=== PATIENT | female | born 1940 | race Caucasian/White ===

== ENCOUNTER 2020-02-08 06:33 | Emergency (ER) | payer MEDICARE, SELFPAY ==
[2020-02-08 06:35] VITALS: BP 135/100; PULSE 97; RESP 18; O2SAT 98; BMI 29.2
--- NOTE | 2020-02-08 06:38 | CTR_ITS ---
PROCEDURE INFORMATION: Exam: CT Abdomen And Pelvis Without Contrast Exam date and time: 02/08/2020 7:27 AM Age: 79 years old Clinical indication: Fever and other: Chills; Prior surgery; Surgery date: 6+ months; Surgery type: Gb appy; Additional info: Flank/abdominal pain TECHNIQUE: Imaging protocol: Computed tomography of the abdomen and pelvis without contrast. Radiation optimization: All CT scans at this facility use at least one of these dose optimization techniques: automated exposure control; mA and/or kV adjustment per patient size (includes targeted exams where dose is matched to clinical indication); or iterative reconstruction. COMPARISON: CT Abdomen/Pelvis o [id number] 06/30/2013 2:45 PM RADIATION DOSE METRICS: Total DLP: 1472.09 mGy-cm FINDINGS: Detailed evaluation of the abdominal and pelvic viscera is somewhat limited in the absence of intravenous contrast. Lungs: Interstitial prominence and chronic granulomatous disease. Coronary artery calcification. Liver: Hepatic granuloma. Gallbladder and bile ducts: Status post cholecystectomy with stable caliber of the biliary ducts. Pancreas: No pancreatic mass or ductal dilatation. Spleen: Splenic granulomata. Adrenals: Unremarkable adrenals. Kidneys and ureters: Parapelvic renal cysts and mild left hydronephrosis, without associated urolithiasis. Mild infiltration of perinephric fat. Stomach and bowel: Prominent stool and diverticula, without pericolonic inflammation. Mild small bowel dilatation without a focal transition zone. Appendix: Appendix not visualized. Intraperitoneal space: No significant free fluid. Vasculature: Vascular ectasia and prominent vascular calcification. Lymph nodes: Subcentimeter lymph nodes. Bladder: Lobulated bladder morphology with intraluminal air and mild wall thickening. Reproductive: Calcified fibroids in the enlarged postmenopausal uterus. Bones/joints: Osteopenia. Lumbar dextroscoliosis, degenerative change, and disc bulging along with laminectomy. L5 spondylolysis and grade 1 anterior listhesis of L5 on S1. Soft tissues: granulomata. CT/CT kidney stone [id number] IMPRESSION: 1. Prominent stool and diverticula, without pericolonic inflammation. 2. Lobulated bladder morphology with intraluminal air and mild wall thickening. 3. Parapelvic renal cysts and mild left hydronephrosis, without associated urolithiasis. 4. Additional findings as described above. Radiation Dose CTDIVOL = (mGy): DLP = 1472.09 (mGy-cm)
--- NOTE | 2020-02-08 06:38 | XR_ITS ---
WS: [id number] XR chest 1V portable [id number] REASON FOR EXAM: FEVER FINDINGS: Off the right hilum there appears to be a low-grade interstitial infiltrate. The heart is normal. There is arteriosclerotic changes seen. There is no pulmonary edema or pneumothorax or effusion. The hilum and apices normal. XR/XR chest 1V portable [id number] IMPRESSION: Low-grade infiltrate off the right hilar area and right lower lung suggesting i nterstitial pneumonia.
--- NOTE | 2020-02-08 06:47 | ED_ITS ---
HPI - Fever General: Chief Complaint: Fever Stated Complaint: fever since yesterday Time Seen by Provider: 02/08/20 06:37 History of Present Illness: HPI Narrative: Dang is a nice 79-year-old female who comes in stating that she has a fever and feels nauseated. Her symptoms began yesterday. She also has urinary frequency and urgency and dysuria. The patient was treated 3 weeks ago with a course of ciprofloxacin for a UTI. She states that she thinks she has a UTI again. She has chronic low back pain but does not feel as though the symptoms are any worse than normal. She is only vomited twice the second episode being just before arrival and then one other episode yesterday. She denies any abdominal pain, diarrhea, flank pain or other complaints. She specifically has no cough or shortness of breath. EMS reported a temp of 100.[address] here. Associated symptoms: Reports dysuria, nausea and vomiting; Deny abdominal pain, back/flank pain, chest pain, confusion, diarrhea, extremity pain or headache(s) Review of Systems General: Reports: other (negative unless marked) Const: Reports: fever; Denies: body aches, fatigue, malaise or diaphoresis Eyes: Denies: change in vision or blurry vision ENMT: Denies: throat pain, painful swallowing, hoarseness, ear pain, ear discharge, Change in hearing or nasal discharge Card: Denies: chest pain, palpitations, irregular heart rhythm, syncope, pre- syncope, shortness of breath on exertion or shortness of breath when lying down Resp: Denies: shortness of breath, productive cough, non-productive cough, wheezing, coughing up blood or chest congestion GI: Reports: nausea and vomiting; Denies: abdominal pain, vomiting blood, coffee grounds in vomit, diarrhea, constipation, cramping, blood in stool or black tarry stool : Reports: painful urination, urinary frequency and urinary urgency; Denies: flank pain, decreased urine ouput, urinary incontinence or blood in urine Musc: Denies: neck pain, back pain, extremity pain, extremity swelling, joint pain, joint swelling, joint warmth or joint stiffness Skin/Breast: Denies: rash, skin tenderness or yellow skin Neuro: Denies: headache, numbness in extremities, weakness in extremities, changes in sensation, lack of coordination, difficulty walking, dizziness, vertigo or confusion Endo: Denies: excessive thirst, tired all the time, cold intolerance, excessive sweating, flushing or hot flashes Olgan/Lymph: Denies: easy bruising, easy bleeding, petechiae or enlarged lymph nodes All/Imm: Denies: hives, throat swelling, tongue swelling, facial swelling or acute wheezing PFSH ED PFSH: Medical History ASHD (arteriosclerotic heart disease) Carotid bruit Essential hypertension Myocardial infarction Plavix resistance Statin intolerance Dizziness and anxiety Surgical History S/P angioplasty with stent Family History Other CAD (coronary artery disease) Diabetes Social History Smoking and tobacco status: never smoked Alcohol intake: never Physical Exam Const: COMMON NORMALS: no apparent distress, oriented x3, no limitations, healthy appearing and well nourished EXAM LIMITATIONS: no altered mental status GENERAL APPEARANCE: cooperative, well kempt and well developed ORIENTATION/CONSCIOUSNESS: Yes awake HENMT: COMMON NORMALS: normocephalic, head/scalp atraumatic, hearing grossly normal bilaterally, external ears normal, EAC's normal, external nose normal and moist oral mucous membranes HEAD & SCALP: normal to inspection, normocephalic and atraumatic FACE & SINUS: normal facial exam and face symmetric NOSE: external nose normal and nares normal EXTERNAL EAR: Yes external ears normal EXTERNAL AUDITORY CANAL: EAC's normal MOUTH: oral and palatal mucosa normal and tongue normal Eye: COMMON NORMALS: PERRL, EOMs intact bilaterally, conjunctivae normal and no scleral icterus GENERAL EYE: normal appearance of both eyes and normal light reflex CONJUNCTIVA: Yes conjunctivae normal SCLERA: sclerae normal CORNEA: Yes corneas normal PUPIL: Yes PERRL DIRECT OPHTHALMOSCOPY: Yes normal light reflex Neck/C-Spine: COMMON NORMALS: full ROM, no lymphadenopathy, supple, no meningeal signs and no JVD GENERAL: Yes normal visual inspection and Yes trachea midline CERVICAL SPINE: Yes cervical ROM normal Chest: COMMONS NORMALS: inspection of chest normal and palpation of chest normal Resp: COMMON NORMALS: normal respiratory effort, no retractions, no use of accessory muscles and clear to auscultation bilaterally EFFORT & INSPECTION: Yes able to speak in complete sentences AUSCULTATION: clear to auscultation bilaterally Cardio: COMMON NORMALS: no JVD, regular rate, regular rhythm, S1 normal heart sound, S2 normal heart sound, no gallops, no clicks, no murmurs and no rub JUGULAR VENOUS DISTENTION: no JVD RATE: regular rate RHYTHM: regular rhythm HEART SOUNDS: S1 normal and S2 normal GI: COMMON NORMALS: soft to palpation, non-tender, no hepatosplenomegaly and no masses INSPECTION: Yes normal to inspection PALPATION: Yes soft and Yes no hepatosplenomegaly : COMMON NORMALS: Yes no CVA tenderness BLADDER/KIDNEY EXAM: Yes no CVA tenderness Back/Pelvis: COMMON NORMALS: no CVA tenderness, thoracic and lumbar spine normal to inspection, no thoracic nor lumbar tenderness and thoraco-lumbar ROM normal Extremity: COMMON NORMALS: normal to inspection, full ROM, normal capillary refill, no joint enlargement, no clubbing, cyanosis or edema and no calf tenderness Neuro: COMMON NORMALS: oriented x3, CN's II-XII intact bilaterally, moves all extremities, no focal motor deficits and no sensory deficits noted MENINGEAL SIGNS: Yes no meningeal signs Psych: COMMON NORMALS: mental status grossly normal, thought process normal, cooperative, affect normal, speech normal and activity/motor behavior normal APPEARANCE: Yes well kempt SPEECH: Yes normal speech THOUGHT PROCESS: normal thought process Skin: COMMON NORMALS: no rashes or lesions noted, skin turgor normal, no jaundice, no petechiae and no mottling GENERAL SKIN EXAM: no rashes or lesions noted and turgor normal Course Vital Signs: Vital signs: Vital Signs Pulse Rate 81 02/08/20 10:01 Respiratory Rate 18 02/08/20 10:01 Blood Pressure 117/47 02/08/20 10:01 Pulse Oximetry 95 02/08/20 10:01 MDM - Fever MDM Narrative: Medical decision making narrative: Ms. Josue is a 79-year-old female who comes in with urinary frequency and urgency and has been diagnosed with a UTI here. We will culture the urine and start her on empiric Rocephin. She has tolerated Keflex in the past and the only allergy she has to penicillins is a rash. Going back as far as 2012 the findings of hydronephrosis which is likely due to parapelvic renal cysts has been stable. There is no sign of ure teral lithiasis. The patient does not appear as of pyelonephritis clinically or on CT. The patient will have been hydrated here with over 2 L of normal saline and will be have given her first dose of antibiotics as an IV dose. Patient does not appear clinically septic and does not meet sepsis criteria. I have reviewed with her at length the signs and symptoms for which to return and she was given the option to be considered staying here but she declines and would like to be discharged. She does understand though she could easily get sick and if so she will need to return here immediately. Lab Data: Attestation: I reviewed the patient's lab results. Labs: Lab Results 02/08/20 02/08/20 02/08/20 Range/Units 06:43 06:43 06:43 WBC 4.2 (4.0-10.0) 10^3/ uL RBC 4.24 (4.1-5.3) 10^6/u L Hgb 12.7 (11.5-15.3) g/dL Hct 39.8 (37.0-47.0) % MCV 93.9 (81-99) fL MCH 30.0 (28.0-34.0) pg MCHC 31.9 (30.0-36.0) g/dL RDW 14.4 (12.1-15.1) % Plt Count 188 (130-400) 10^3/c mm MPV 10.3 (7.4-10.4) fL Neut % (Auto) 89.2 % Lymph % (Auto) 8.4 % [place] % (Auto) 1.0 % Eos % (Auto) 0.7 % Baso % (Auto) 0.5 % Neut # (Auto) 3.7 (1.8-7.7) 10^3/u L Lymph # (Auto) 0.4 L (0.8-4.8) 10^3/u L [place] # (Auto) 0.0 L (0.2-0.9) 10^3/u L Eos # (Auto) 0.0 (0.0-0.8) 10^3/u L Baso # (Auto) 0.0 (0.0-0.1) 10^3/u L Nucleated RBC % (a uto) 0 % Nucleated RBCs # 0.0 /100WBC Sodium 137 (136-145) mmol/L Potassium 3.8 (3.5-5.1) mmol/L Chloride 102 (98-107) mmol/L Carbon Dioxide 23 (22-29) mmol/L Anion Gap 15.8 (5-19) BUN 17 (8-23) mg/dL Creatinine 1.0 H (0.5-0.9) mg/dL Glucose 150 H (65-115) mg/dL Calculated Osmolal ity 283 L (285-295) mOsm/k g Lactic Acid 2.1 (0.5-2.2) mmol/L Lactic Acid (Sepsi s) (0.5-2.2) mmol/L Calcium 10.6 H (8.5-10.5) mg/dL Magnesium 1.7 (1.7-2.3) mg/dL Total Bilirubin 1.4 H (0.15-1.2) mg/dL AST 22 (0-32) U/L ALT 13 (0-33) U/L Alkaline Phosphata se 91 (35-105) IU/L Total Protein 7.2 (6.6-8.7) g/dL Albumin 3.7 (3.5-5.2) g/dL Globulin 3.5 (1.3-4.6) g/dL Lipase 10 L (13-60) U/L Urine Color (Yellow) Urine Appearance (CLEAR) Urine pH (5-7) Ur Specific Gravit y (1.005-1.030) Urine Protein (Negative) Urine Glucose (UA) (Normal) Urine Ketones (Negative) Urine Blood (Negative) Urine Nitrate (Negative) Urine Bilirubin (NEGATIVE) Urine Urobilinogen (Negative) mg/dL Ur Leukocyte Melinda ase (Negative) Urine RBC (0-2) /hpf Urine WBC (0-5) /hpf Ur Squamous Epith Cells (0-5) Urine Bacteria (NONE) 02/08/20 02/08/20 Range/Units 07:10 09:42 WBC (4.0-10.0) 10^3/ uL RBC (4.1-5.3) 10^6/u L Hgb (11.5-15.3) g/dL Hct (37.0-47.0) % MCV (81-99) fL MCH (28.0-34.0) pg MCHC (30.0-36.0) g/dL RDW (12.1-15.1) % Plt Count (130-400) 10^3/c mm MPV (7.4-10.4) fL Neut % (Auto) % Lymph % (Auto) % [place] % (Auto) % Eos % (Auto) % Baso % (Auto) % Neut # (Auto) (1.8-7.7) 10^3/u L Lymph # (Auto) (0.8-4.8) 10^3/u L [place] # (Auto) (0.2-0.9) 10^3/u L Eos # (Auto) (0.0-0.8) 10^3/u L Baso # (Auto) (0.0-0.1) 10^3/u L Nucleated RBC % (a uto) % Nucleated RBCs # /100WBC Sodium (136-145) mmol/L Potassium (3.5-5.1) mmol/L Chloride (98-107) mmol/L Carbon Dioxide (22-29) mmol/L Anion Gap (5-19) BUN (8-23) mg/dL Creatinine (0.5-0.9) mg/dL Glucose (65-115) mg/dL Calculated Osmolal ity (285-295) mOsm/k g Lactic Acid (0.5-2.2) mmol/L Lactic Acid (Sepsi s) 1.3 (0.5-2.2) mmol/L Calcium (8.5-10.5) mg/dL Magnesium (1.7-2.3) mg/dL Total Bilirubin (0.15-1.2) mg/dL AST (0-32) U/L ALT (0-33) U/L Alkaline Phosphata se (35-105) IU/L Total Protein (6.6-8.7) g/dL Albumin (3.5-5.2) g/dL Globulin (1.3-4.6) g/dL Lipase (13-60) U/L Urine Color Yellow (Yellow) Urine Appearance Sl hazy (CLEAR) Urine pH 6 (5-7) Ur Specific Gravit y 1.010 (1.005-1.030) Urine Protein Trace (Negative) Urine Glucose (UA) Norm (Normal) Urine Ketones Negative (Negative) Urine Blood 2+ H (Negative) Urine Nitrate Negative (Negative) Urine Bilirubin Neg (NEGATIVE) Urine Urobilinogen Norm (Negative) mg/dL Ur Leukocyte Melinda ase 2+ H (Negative) Urine RBC 10-15 H (0-2) /hpf Urine WBC 40-55 H (0-5) /hpf Ur Squamous Epith Cells 0-4 H (0-5) Urine Bacteria 3+ H (NONE) Imaging Data^: CT Abd/Pel: Attestation: I personally reviewed and interpreted this imaging study as follows: Radiologist's impression: [place] [address] CT Scan Report Signed Patient: Glenda Josue Unit #: [id number] : 1940 74 Age/Sex: 79 / F ADM Date: 02/08/20 Loc: ER Room/Bed: Attending Dr: Ordering Provider/Ordering MD: Genet Marc DO Date of Service: 02/08/20 Procedure(s): CT kidney stone [id number] Accession Number(s): [id number] Report Number: [id number] PROCEDURE INFORMATION: Exam: CT Abdomen And Pelvis Without Contrast Exam date and time: 02/08/2020 7:27 AM Age: 79 years old Clinical indication: Fever and other: Chills; Prior surgery; Surgery date: 6+ months; Surgery type: Gb appy; Additional info: Flank/abdominal pain TECHNIQUE: Imaging protocol: Computed tomography of the abdomen and pelvis without contrast. Radiation optimization: All CT scans at this facility use at least one of these dose optimization techniques: automated exposure control; mA and/or kV adjustment per patient size (includes targeted exams where dose is matched to clinical indication); or iterative reconstruction. COMPARISON: CT Abdomen/Pelvis [facility] [id number] 06/30/2013 2:45 PM RADIATION DOSE METRICS: Total DLP: 1472.09 mGy-cm FINDINGS: Detailed evaluation of the abdominal and pelvic viscera is somewhat limited in the absence of intravenous contrast. Lungs: Interstitial prominence and chronic granulomatous disease. Coronary artery calcification. Liver: Hepatic granuloma. Gallbladder and bile ducts: Status post cholecystectomy with stable caliber of the biliary ducts. Pancreas: No pancreatic mass or ductal dilatation. Spleen: Splenic granulomata. Adrenals: Unremarkable adrenals. Kidneys and ureters: Parapelvic renal cysts and mild left hydronephrosis, without associated urolithiasis. Mild infiltration of perinephric fat. Stomach and bowel: Prominent stool and diverticula, without pericolonic inflammation. Mild small bowel dilatation without a focal transition zone. Appendix: Appendix not visualized. Intraperitoneal space: No significant free fluid. Vasculature: Vascular ectasia and prominent vascular calcification. Lymph nodes: Subcentimeter lymph nodes. Bladder: Lobulated bladder morphology with intraluminal air and mild wall thickening. Reproductive: Calcified fibroids in the enlarged postmenopausal uterus. Bones/joints: Osteopenia. Lumbar dextroscoliosis, degenerative change, and disc bulging along with laminectomy. L5 spondylolysis and grade 1 anterior listhesis of L5 on S1. Soft tissues: granulomata. CT/CT kidney stone [id number] IMPRESSION: 1. Prominent stool and diverticula, without pericolonic inflammation. 2. Lobulated bladder morphology with intraluminal air and mild wall thickening. 3. Parapelvic renal cysts and mild left hydronephrosis, without associated urolithiasis. 4. Additional findings as described above. Radiation Dose CTDIVOL = (mGy): DLP = 1472.09 (mGy-cm) Dictated By: Josse Kolb MD Signed By: Josse oKlb MD Signed Date/Time: 02/08/20 0800 DD/ 0759 CXR: My impression: No acute cardiopulmonary findings. Unchanged from previous. Discharge Plan Discharge Patient Disposition: Home, Self-Care Clinical Impression: Acute UTI Condition: Stable Prescriptions: New Zofran 4 mg tablet 4 mg PO Q6H PRN (Reason: nausea and vomiting) Qty: 20 RF: 0 cefdinir 300 mg capsule 300 mg PO Q12H 10 Days Qty: 20 RF: 0 No Action aspirin [Adult Low Dose Aspirin] 81 mg tablet,delayed release (DR/EC) 81 mg PO DAILY RF: 0 enalapril maleate 20 mg tablet 20 mg PO BID RF: 0 cyclobenzaprine 10 mg tablet 10 mg PO TID PRNRF: 0 polyethylene glycol 3350 [Miralax] 17 gram/dose powder 17 gm PO QDAY PRNRF: 0 acetaminophen [Tylenol Extra Strength] 500 mg tablet 500 mg PO Q4H PRNRF: 0 Discharge Orders: Discharge Order (Routine); Ordered 02/08/20 Ordered By: Genet Marc Referrals: Tamar Gudino DO [Primary Care Provider] - 1-3 days Discharge Diet: Advance as tolerated Discharge Activity: Increase activity as tolerated Patient Instructions: Urinary Tract Infection in Women (ED), Dysuria (ED) Activity Restrictions/Additional Instructions: Please return to the ER immediately for any of the signs or symptoms listed on your discharge instruction sheets, worsening/changing of your symptoms, you are not getting better as quickly as expected, or for ANY other cause or concerns. Please return to the ER for fever, return of vomiting, generalized weakness, or for any other cause for concern. Be certain to follow-up with your doctor as soon as possible for recheck. 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
[2020-02-08 06:51] LABS: Basophils % 0.5 %; Eosinophils % 0.7 %; Hematocrit 39.8 % (37.0-47.0); Hemoglobin 12.7 g/dL (11.5-15.3); Lymphocytes # 0.4 10^3/uL (0.8-4.8); Lymphocytes % 8.4 %; Mean Corpuscular HGB Conc 31.9 g/dL (30.0-36.0); Mean Corpuscular Volume 93.9 fL (81-99); Mean Platelet Volume 10.3 fL (7.4-10.4); Neutrophils # 3.7 10^3/uL (1.8-7.7); Neutrophils % 89.2 %; Nucleated Red Blood Cells % 0 %; Platelet Count 188 10^3/cmm (130-400); Red Blood Count 4.24 10^6/uL (4.1-5.3); Red Cell Distribution Width 14.4 % (12.1-15.1); White Blood Count 4.2 10^3/uL (4.0-10.0)
[2020-02-08] MEDS: sodium chloride 0.9% 1,000 ML 999 ML IV (06:51)
[2020-02-08 07:03] LABS: Alanine Aminotransferase 13 U/L (0-33); Albumin Level 3.7 g/dL (3.5-5.2); Alkaline Phosphatase 91 IU/L (35-105); Anion Gap 15.8 (5-19); Blood Urea Nitrogen 17 mg/dL (8-23); Calcium 10.6 mg/dL (8.5-10.5); Carbon Dioxide 23 mmol/L (22-29); Chloride 102 mmol/L (98-107); Globulin 3.5 g/dL (1.3-4.6); Glucose 150 mg/dL (65-115); Lactic Sepsis W/Reflex 2.1 mmol/L (0.5-2.2); Lipase 10 U/L (13-60); Magnesium 1.7 mg/dL (1.7-2.3); Osmolality Calculated 283 mOsm/kg (285-295); Potassium 3.8 mmol/L (3.5-5.1); Sodium 137 mmol/L (136-145); Total Bilirubin 1.4 mg/dL (0.15-1.2); Total Protein 7.2 g/dL (6.6-8.7)
[2020-02-08 07:18] LABS: Aspartate Amino Transferase 22 U/L (0-32)
[2020-02-08] MEDS: ondansetron 2 mg/ML SDV 2 mL 4 MG IVP (07:41)
[2020-02-08 08:34] LABS: Urine Color Yellow (Yellow)
[2020-02-08 08:35] LABS: Bilirubin Urine Neg (NEGATIVE); Blood Urine 2+ (Negative); Glucose Urine UA Norm (Normal); Ketones Urine Negative (Negative); Leukocyte Esterase Urine 2+ (Negative); Nitrate Urine Negative (Negative); Protein Urine Trace (Negative); Urine Appearance SL Hazy (CLEAR); Urobilinogen Urine Norm (Negative); pH Urine 6 (5-7)
[2020-02-08 08:36] LABS: Reflex Lactate Order REFLEX LACTIC ORDERD
[2020-02-08 08:55] LABS: Add Urine Culture? Yes; Bacteria Urine 3+; Squamous Epithelial Cell Urine 0-4 (0-5); WBC Urine 40-55 /hpf (0-5)
[2020-02-08] MEDS: sodium chloride 0.9% 1,000 ML 100 ML IV (08:59)
[2020-02-08] MEDS: cefTRIAXone 1,000 MG in sodium chloride 0.9% (plus) 50 ML 100 MG IV (09:21)
[2020-02-08 10:01] VITALS: BP 117/47; PULSE 81; RESP 18; O2SAT 95
[2020-02-08 10:03] LABS: Lactic Acid level (Lactate) 1.3 mmol/L (0.5-2.2)
== END 2020-02-08 10:39 | disposition home or self-care (01) ==
PROVIDERS: Emergency Provider Emergency Medicine; PCP Family Medicine
DX: N39.0 Urinary tract infection, site not specified (principal); Z79.82 Long term (current) use of aspirin; I10 Essential (primary) hypertension; I25.2 Old myocardial infarction; Z98.61 Coronary angioplasty status
CPT/HCPCS: 12345; 36415; 71045; 74176; 80053; 81001; 83605; 83690; 83735; 85025; 87077; 87086; 87186; 96361; 96365; 96375; 99282; 99284; J0696; J2405; J7030

== ENCOUNTER 2020-11-08 10:42 | Inpatient (IN) | payer MEDICARE, SELFPAY ==
[2020-11-08] VITALS (69 sets, daily range): BP systolic 134–230; BP diastolic 39–97; PULSE 47–63; RESP 12–20; TEMP 36.6–36.9; O2SAT 92–98; BMI 27.4
--- NOTE | 2020-11-08 10:51 | XRR_ITS ---
PROCEDURE INFORMATION: Exam: XR Left Hip with Pelvis when Performed Exam date and time: 11/08/2020 10:55 AM Age: 80 years old Clinical indication: Hip pain; Patient HX: Left hip and leg pain, numbness, cramp in groin TECHNIQUE: Imaging protocol: XR Left hip with pelvis when performed. Views: 2 or 3 views. COMPARISON: CT kidney stone [id number] 02/08/2020 7:26 AM FINDINGS: Bones/joints: Mild degenerative changes are present with mild superior joint space narrowing. No fracture or other acute abnormalities are seen. Soft tissues: Unremarkable. XR/XR hip LT 2-3V wo/w pel* [id number] IMPRESSION: Mild chronic degenerative disease. No acute abnormality.
--- NOTE | 2020-11-08 10:51 | ECG_ITS ---
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
--- NOTE | 2020-11-08 10:57 | USCV_ITS ---
Glenda Josue Age: 80 Gender: F : 1940 Exam Date: 11/08/2020 11:32 Ordering Phys: Corey Hilario DO Technologist: [place] Exam Location: [facility] [place] Indication: COLD EXTREMITY AND PULSELESSNESS Risk Factors: Previous Vascular Surgery: RIGHT LEFT Waveform Velocity (cm/s) Velocity (cm/s) Waveform Iliac Prox 15.4 N/A Iliac Mid 14.8 Monophasic Iliac Distal 12.1 Biphasic [employer] 7.5 Monophasic FINDINGS Low velocity monophasic Doppler waveform in the proximal, mid and distal iliac artery on the left side. No flow was detected in the common femoral artery, superficial, popliteal and infrapopliteal vessels. 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 Dr Keturah Augustin MD [facility] (Electronically Signed) Final Date: 08 November 2020 19:49 S
--- NOTE | 2020-11-08 10:59 | ED_ITS ---
HPI - Extremity Problem General: Chief complaint: Extremity Problem,Nontraumatic Stated complaint: L LEG PAIN Time Seen by Provider: 11/08/20 10:44 History of Present Illness: HPI Narrative: 80-year-old female comes in complaining of left hip pain radiating down into her foot. States it is primarily however in the hip. She cannot recall any trauma she had no recent fall she was up and move around doing her usual activities when it began this morning. She states it started this morning about 15 minutes after she put some wood in an outdoor furnace. MD Complaint: extremity pain and cold extremity Onset (ago): minute(s) Pain Consistency: constant Location: left and lower extremity Quality: aching Radiation: distal Relieving factors: nothing Exacerbating factors: nothing Associated symptoms: Deny arthralgias, chest pain, fever(s), myalgias, rash or short of breath Review of Systems Const: Denies: fever(s) Card: Denies: chest pain Resp: Denies: dyspnea, productive cough or non-productive cough GI: Denies: abdominal pain, nausea, vomiting, hematemesis, coffee ground emesis, diarrhea, constipation, bloating, hematochezia or melena : Denies: flank pain, difficulty voiding, dysuria, urinary frequency or urinary urgency Skin/Breast: Denies: rash PFSH ED PFSH: Medical History ASHD (arteriosclerotic heart disease) Carotid bruit Essential hypertension Myocardial infarction Plavix resistance Statin intolerance Dizziness and anxiety Surgical History S/P angioplasty with stent Family History Other CAD (coronary artery disease) Diabetes Social History Smoking and tobacco status: never smoked Alcohol intake: never Physical Exam Const: COMMON NORMALS: no acute distress GENERAL APPEARANCE: cooperative and comfortable HENMT: COMMON NORMALS: normocephalic, atraumatic, hearing grossly normal bilaterally, external ears normal, EAC's normal, TM's normal bilaterally, Normal nasal mucous membranes and turbinates present, moist oral mucous membranes and oropharynx normal HEAD & SCALP: normocephalic and atraumatic NOSE: Normal nasal mucous membranes and turbinates present EXTERNAL EAR: Yes external ears normal EXTERNAL AUDITORY CANAL: EAC's normal TYMPANIC MEMBRANE: TM's normal bilaterally Neck/C-Spine: COMMON NORMALS: no JVD Resp: COMMON NORMALS: normal respiratory effort, No retractions, No use of accessory muscles and clear to auscultation bilaterally AUSCULTATION: clear to auscultation bilaterally Cardio: COMMON NORMALS: no JVD, regular rate, regular rhythm and No murmurs present (Cardio) RATE: regular rate RHYTHM: regular rhythm GI: COMMON NORMALS: Soft to palpation and No hepatosplenomegaly present AUSCULTATION: Yes normoactive bowel sounds PALPATION: Yes Soft to palpation, No Tenderness to palpation present (GI), No Guarding due to palpation present (GI) and Yes No hepatosplenomegaly present Extremity: NARRATIVE EXTREMITY EXAM: left leg is pulseless below the level of the femoral artery at the inguinal region. I can still palpate at the left femoral artery. No popliteal or dorsalis pedis posterior tibial Ellie pulse noted. Skin: COMMON NORMALS: no rashes or lesions noted GENERAL SKIN EXAM: no rashes or lesions noted Course Vital Signs: Vital signs: Vital Signs Temperature 98.5 F 11/08/20 10:43 Pulse Rate 47 L 11/08/20 13:03 Respiratory Rate 18 11/08/20 13:03 Blood Pressure 218/97 11/08/20 13:03 Pulse Oximetry 98 11/08/20 13:03 MDM - Extremity (Nontraumatic) MDM Narrative: Medical decision making narrative: Ultrasound study confirms physical exam finding of ischemic limb with no identifiable pulses below the level of the common femoral artery. Discussed with Dr. Nicholson initially he asked that we do a CT with runoff. We had already started her on heparin. There was a change in plan and Dr. Nicholson plans to take patient directly to the Traveling Secretary have discussed with the patient and family as well. Lab Data: Labs: Lab Results 11/08/20 11/08/20 11/08/20 Range/Units 12:05 12:05 12:45 WBC 9.9 (4.0-10.0) 10^3/ uL RBC 4.12 (4.1-5.3) 10^6/u L Hgb 12.6 (11.5-15.3) g/dL Hct 39.1 (37.0-47.0) % MCV 94.9 (81-99) fL MCH 30.6 (28.0-34.0) pg MCHC 32.2 (30.0-36.0) g/dL RDW 13.2 (12.1-15.1) % Plt Count 256 (130-400) 10^3/c mm MPV 9.9 (7.4-10.4) fL Neut % (Auto) 83.0 % Lymph % (Auto) 12.6 % [place] % (Auto) 3.3 % Eos % (Auto) 0.2 % Baso % (Auto) 0.7 % Neut # (Auto) 8.18 H (1.8-7.7) 10^3/u L Lymph # (Auto) 1.2 (0.8-4.8) 10^3/u L [place] # (Auto) 0.3 (0.2-0.9) 10^3/u L Eos # (Auto) 0.0 (0.0-0.8) 10^3/u L Baso # (Auto) 0.1 (0.0-0.1) 10^3/u L Nucleated RBC % (a uto) 0 % Nucleated RBCs # 0.0 /100WBC Sodium 139 (136-145) mmol/L Potassium 4.1 (3.5-5.1) mmol/L Chloride 104 (98-107) mmol/L Carbon Dioxide 25 (22-29) mmol/L Anion Gap 14.1 (5-19) BUN 11 (8-23) mg/dL Creatinine 0.7 (0.5-0.9) mg/dL GFR Calculation Not Reportable Glucose 113 (65-115) mg/dL Calculated Osmolal ity 288 (285-295) mOsm/k g Calcium 9.6 (8.5-10.5) mg/dL Total Bilirubin 0.5 (0.15-1.2) mg/dL AST 16 (0-32) U/L ALT 9 (0-33) U/L Alkaline Phosphata se 89 (35-105) IU/L Total Protein 6.9 (6.6-8.7) g/dL Albumin 3.7 (3.5-5.2) g/dL Globulin 3.2 (1.3-4.6) g/dL Urine Color Straw (Yellow) Urine Appearance Clear (CLEAR) Urine pH 7 (5-7) Ur Specific Gravit y 1.010 (1.005-1.030) Urine Protein Trace (Negative) Urine Glucose (UA) Norm (Normal) Urine Ketones Negative (Negative) Urine Blood Neg (Negative) Urine Nitrate Positive H (Negative) Urine Bilirubin Neg (Negative) Urine Urobilinogen Norm (Negative) mg/dL Ur Leukocyte Melinda ase Negative (Negative) Urine RBC None (0-2) /hpf Urine WBC 5-10 H (0-5) /hpf Ur Squamous Epith Cells 0-4 H (0-5) /hpf Amorphous Sediment Not Reportable Urine Bacteria 4+ H (NONE) /hpf Discharge Plan Discharge Admit Provider: Christopher Nicholson Coding Level of Care Code ED Ticker Installer for g Fwd Exam Comprehensive
[2020-11-08] MEDS: heparin 5,000 unit/mL INJ 1 mL 4000 UNIT IVP (12:04)
[2020-11-08] MEDS: heparin drip 25,000 UNIT/500 ML PREMIX 19.1 UNIT IV (12:28)
[2020-11-08 12:29] LABS: Basophils # 0.1 10^3/uL (0.0-0.1); Basophils % 0.7 %; Eosinophils % 0.2 %; Hematocrit 39.1 % (37.0-47.0); Hemoglobin 12.6 g/dL (11.5-15.3); Lymphocytes # 1.2 10^3/uL (0.8-4.8); Lymphocytes % 12.6 %; Mean Corpuscular HGB Conc 32.2 g/dL (30.0-36.0); Mean Corpuscular Hemoglobin 30.6 pg (28.0-34.0); Mean Corpuscular Volume 94.9 fL (81-99); Mean Platelet Volume 9.9 fL (7.4-10.4); Monocytes # 0.3 10^3/uL (0.2-0.9); Monocytes % 3.3 %; Neutrophils # 8.18 10^3/uL (1.8-7.7); Nucleated Red Blood Cells % 0 %; Platelet Count 256 10^3/cmm (130-400); Red Blood Count 4.12 10^6/uL (4.1-5.3); Red Cell Distribution Width 13.2 % (12.1-15.1); White Blood Count 9.9 10^3/uL (4.0-10.0)
--- NOTE | 2020-11-08 12:50 | XACV_ITS ---
Wt: 68 kg BSA: 1.75 m2 Any Known Allergies: Hydrocodone Gender: Female : 1940 Exam Type: Invasive Peripheral Vascular Procedure(s): Procedure Description: Peripheral Cath Diagnostic Procedure Procedure Description: Abdominal aortic angiography Procedure Description: Peripheral vascular Intervention Procedure Description: PV Balloon Exam Priority: Routine Abdominal Diagnostic Findings No significant stenosis. Lower Extremity Diagnostic Findings Right lower extremity: No significant stenosis in the right common iliac. No significant stenosis of the right external iliac artery. No significant stenosis in right internal iliac artery. No significant stenosis in the right common femoral artery. Runoff to right lower extremity not performed as patient had acute limb ischemia left lower extremity. However significant stenosis of the proximal right SFA was noted on the femoral artery angiogram at the end of procedure.. Left lower extremity: No significant stenosis in the left common iliac artery. No significant stenosis in the left external iliac artery. No significant stenosis in the left internal iliac artery. Left common femoral artery: There is a total thombotic occlusion of the distal left common femoral artery/ostial left SFA and profunda artery. Weak collarerals noted. Abdominal Interventional Findings PROCEDURE INDICATION: 80 year old female with past medical history of uncontrolled hypertension, coronary artery disease s/p [place] in the past, history of noncompliance presented to the emergency room with 3 to 4 hours of left hip pain radiating down to her foot. She started noticing numbness in the foot. In the emergency room she will was found to have no pulses in the left lower extremity. Duplex arterial ultrasound showed no flow below the iliac arteries. Patient was started on heparin drip. Interventional cardiology was consulted and she was emergently taken to [facility] for angiogram. Lower Extremity Interventional Findings PROCEDURE: We obtained access in the right common femoral artery. After diagnostic abdominal angiogram was performed , we switched the sheath to a 6 Fr 45 cm long cook sheath. We then used glidewire to cross the thombotic occlusion and was placed in the TR segment with the help of seeker support catheter. We then performed balloon angioplasty using a [id number] Balloon. This restored the blood flow to the lower extremity. This revealed severe stenosis in the mid SFA. This was treated with balloon angioplasty with a [id number] Balloon. Below the knee patient had a single vessel run off to the ankle with patent AT being filled by collateral supply. TP segment is occluded. As patient had immediate return of good palpable pulse in the foot with druze of foot movement and sensation we decided to finish the procedure. Left profunda artery had thrombus downstream that was left for oral anticoagulation treatment. Conclusions Acute limb ischemia with total thrombotic occlusion of distal left common femoral artery/ostial left SFA/ Ostial profunda. Successful revascularization with balloon angioplasty x 2. Severe peripheral artery disease. Recommendations Admit to CSU. Continue aspirin. We will initiate Eliquis 2.5mg BID for 1 month. As outpatient, will perform CTA with runoff to assess for peripheral artery disease on the right side. Hemodynamic Data Phase:Rest AO : 165.0 / 68.0 ( 96.0 ) @ 7:43:00 AM Access Site Site: Right Femoral artery Sheath Size: 6 Fr Hemost... Method: Suture Hemost... Success: Unsuccessful Site: Right Femoral artery Sheath Size: 6 Fr Hemost... Method: Suture Hemost... Success: Successful Procedure Details Findings Procedure Consent Obtained. Admit Source: Emergency department. Pre-Procedure Time Out. Identified patient by full name and date of as verbalized by the patient/guarantor. Does the consent match the physician's order: N/A Emergent. Accurate & Complete Informed Consent: N/A Emergent. Inpatient/Outpatient History & Physical on Chart: N/A Emergent. If H&P is completed, is and addenduem needed: N/A Emergent; If yes, is the addendum complete: N/A Emergent. Visualize and Verify Site with Patient/Guarantor: N/A. Relevant Radiology Images available: N/A Emergent. Pre-op teaching completed and patient verbalized understanding. The risks, benefits, and alternatives of sedation and/or procedure were discussed by physician. The patient agrees to continue. Procedure started. Correct patient, site and procedure confirmed by cath team. PERRLA. Strong, equal hand php architect bilaterally. Lungs clear x 5 lobes. IV Site on Arrival: 20 gauge in the left anticubital. Oxygen started at 2liters/min via nasal canula. bilateral groins was prepped with chloroprep then draped in the usual sterile fashion. Physician notified. Baseline sample Acquired. HR: 52 BPM. Physician arrived. Physician scrubbed in. Immediate Pre-Procedure Time Out. Correct Patient: Yes; Correct Procedure: Yes; Correct Site: Yes; Correct Patient Position: Yes; Correct Supplies: Yes; Dried Flammable Prep: yes; Blood Products Available: N/A;. Time out performed with cath team. Lidocaine 1% infiltrated to the right groin. Arterial access obtained with micropuncture set. A 5FrFr UF catheter in over wire. Abdominal aortogram performed in AP @ 10 mL/sec for a total of [address] Shetty scrubbed in to help. glide wire inserted. Catheter out. seeker inserted. glide wire out. hand injection performed. glide wire inserted. seeker out. 6F long Portable Scores flexor 45 sheath. Trailblazer catheter inserted over the wire. Side port of sheath attached to Normal Saline flush at KVO to maintain patency. glidewire out. hand injection performed. glidewire inserted. seeker out over glidewire. Inflation number : 1 A AB [place] 35 CAR SALESPERSON Catheter [id number] was prepped and advanced across the Superficial Femoral, Left , then inflated to 6 DEEPAK for 2:06 seconds. Balloon out over wire. results checked. Inflation number : 2 A AB [place] 35 OTW [id number] was prepped and advanced across the Superficial Femoral, Left , then inflated to 6 DEEPAK for 2:01 seconds. Balloon out over wire. results checked. wire pulled back inside the sheath. wire down. ACT drawn. Results 203 seconds. Therapeutic limits - pre-heparin administration 90-150 seconds and monitoring heparin during a vascular procedure >250 seconds. Inflation number : 3 A AB [place] 35 OTW [id number] was prepped and advanced across the Superficial Femoral, Left , then inflated to 6 DEEPAK for 2:00 seconds. Balloon out. results checked. handinjection performed. Sheath(s) sutured into position with 2-0 silk and sterile 4x4's and Op-site applied over the site. No oozing or signs and symptoms of hematoma noted. PERRLA. Strong, equal hand php architect bilaterally. No VTE prophylaxis required. Medication's Wasted: Heparin = 1000 units. Medication's Wasted: Lidocaine 1% = 10 mL. Medication's Wasted: Nitro = 49.2 mg. Medication's Wasted: Other = fentanyl 50 mg. Total IV fluids: 75 mL. Contrast type used: Omnipaque 300 mgI/mL, 500 mL bottle. Contrast Material : Omnipaque 180 ml. Post-op diagnosis: complete occulusion of SFA and acute ischemia. Complications: none. Estimated blood loss: 5mL-10mL. Sheath upsized to a 6 Fr. A Suture was unsuccessful obtaining hemostatsis at the Right Femoral artery insertion site. A Suture was successful obtaining hemostatsis at the Right Femoral artery insertion site. Martín Erickson, RN scrubbed in for RT Paul. Procedure completed. Patient transferred by bed to ICU. Vital chart was stopped. Procedure Medications Start: 1:06 PM Stop: 1:06 PM Medication: Versed Amount: 1 mg Route: I.V. Start: 1:06 PM Stop: 1:06 PM Medication: Fentanyl Amount: 50 mcg Route: I.V. Start: 1:12 PM Stop: 1:12 PM Medication: Hydralazine Amount: 10 mg Route: I.V. Start: 1:24 PM Stop: 1:24 PM Medication: Versed Amount: 1 mg Route: I.V. Start: 1:36 PM Stop: 1:36 PM Medication: Heparin Amount: 5000 units Route: I.V. Start: 1:43 PM Stop: 1:43 PM Medication: Fentanyl Amount: 50 mcg Route: I.V. Start: 1:51 PM Stop: 1:51 PM Medication: Fentanyl Amount: 50 mcg Route: I.V. Start: 1:51 PM Stop: 1:51 PM Medication: Hydralazine Amount: 10 mg Route: I.V. Start: 1:54 PM Stop: 1:54 PM Medication: Nitrogylcerin Amount: 400 mcg Route: I.A. Start: 1:59 PM Stop: 1:59 PM Medication: Heparin Amount: 3000 units Route: I.V. Start: 2:00 PM Stop: 2:00 PM Medication: Nitrogylcerin Amount: 400 mcg Route: I.A. Report Signatures Finalized by Christopher Nicholson MD on 11/19/2020 04:12 PM
[2020-11-08 13:18] LABS: Urine Appearance Clear (CLEAR); Urine Color Straw (Yellow)
[2020-11-08 13:19] LABS: Add Urine Microscopic? YES; Bilirubin Urine Neg (Negative); Blood Urine Neg (Negative); Glucose Urine UA Norm (Normal); Ketones Urine Negative (Negative); Leukocyte Esterase Urine Negative (Negative); Nitrate Urine Positive (Negative); Protein Urine Trace (Negative); Urobilinogen Urine Norm (Negative); pH Urine 7 (5-7)
[2020-11-08 13:20] LABS: Add Urine Culture? Yes; Bacteria Urine 4+ /hpf; Squamous Epithelial Cell Urine 0-4 /hpf (0-5)
[2020-11-08 13:32] LABS: Alanine Aminotransferase 9 U/L (0-33); Albumin Level 3.7 g/dL (3.5-5.2); Alkaline Phosphatase 89 IU/L (35-105); Anion Gap 14.1 (5-19); Aspartate Amino Transferase 16 U/L (0-32); Blood Urea Nitrogen 11 mg/dL (8-23); Calcium 9.6 mg/dL (8.5-10.5); Carbon Dioxide 25 mmol/L (22-29); Chloride 104 mmol/L (98-107); Creatinine Clr Calc Pharmacy 50.7128; Globulin 3.2 g/dL (1.3-4.6); Glucose 113 mg/dL (65-115); Osmolality Calculated 288 mOsm/kg (285-295); Potassium 4.1 mmol/L (3.5-5.1); Sodium 139 mmol/L (136-145); Total Bilirubin 0.5 mg/dL (0.15-1.2); Total Protein 6.9 g/dL (6.6-8.7)
--- NOTE | 2020-11-08 14:12 | P.HP_ITS ---
Providers/Chief Complaint Primary Care Provider: Tamar Gudino DO Chief Complaint: L LEG PAIN History of Present Illness Glenda Josue is a 80 year old female with past medical history of uncontrolled hypertension, coronary artery disease s/p [place] in the past, history of noncompliance presented to the emergency room with 3 to 4 hours of left hip pain radiating down to her foot. She started noticing numbness in the foot. In the emergency room she will was found to have no pulses in the left lower extremity. Duplex arterial ultrasound showed no flow below the iliac arteries. Patient was started on heparin drip. Interventional cardiology was consulted and she was emergently taken to [facility] for angiogram. Aortic angiogram with runoff showed total thrombotic occlusion of ostial SFA. No flow was seen downstream. Flow was restored with balloon angioplasty. Post angiogram patient regained sensation and pain has resolved. Review of Systems Narrative: CONSTITUTIONAL: No fever chills weight loss or gain or night sweats. [] HEENT: Normocephalic, atraumatic.[] RESPIRATORY: No cough, sputum, hemoptysis or wheezing.[] CARDIOVASCULAR: No shortness of breath, chest pain, PND, orthopnea, lower extremity edema, presyncope or syncope. [] GI: no nausea vomiting diarrhea. [] CYLINDRICAL MIXER: No numbness, tingling, weakness or loss of function in any part of the body. [] MUSCULOSKELETAL: Severe pain in the left lower extremity starting from hip radiating down to the foot. Medications/Allergies Home Medications Medication Instructions Recorded Confirmed Last Taken Type aspirin 81 mg tablet,delayed 81 mg PO DAILY@07 tab 10/15/19 11/08/20 11/08/20 History release acetaminophen 500 mg tablet 500 mg PO Q4H PRN 10/16/19 11/08/20 Unknown History cyclobenzaprine 10 mg tablet 10 mg PO TID PRN 10/16/19 11/08/20 Unknown History enalapril maleate 20 mg tablet 20 mg PO BID@10/16/19 11/08/20 11/08/20 History polyethylene glycol 3350 17 17 gm PO DAILY PRN 10/16/19 11/08/20 Unknown History gram/dose oral powder atenolol 50 mg PO DAILY@07 11/08/20 11/08/20 11/08/20 History ibuprofen 200 mg PO ONCE PRN 11/08/20 11/08/20 11/08/20 History 200 MG multivitamin 1 tab PO DAILY@07 11/08/20 11/08/20 11/08/20 History psyllium husk (aspartame) 1.65 g PO DAILY PRN 11/08/20 11/08/20 Unknown History [Metamucil [facility] Fiber] Allergies Allergy/AdvReac Type Severity Reaction Status Date / Time levofloxacin [From Levaquin] Allergy Severe ADR-Cramping Verified 11/08/20 16:23 of the Muscles metronidazole Allergy Intermediate Unknown Verified 11/08/20 16:23 Penicillins Allergy Intermediate Unknown Verified 11/08/20 16:23 PFSH Acute PFSH: Medical History (Updated 11/09/20 @ 11:08 by Christopher Nicholson M.D) ASHD (arteriosclerotic heart disease) Carotid bruit Essential hypertension Myocardial infarction Plavix resistance Statin intolerance Dizziness and anxiety Surgical History S/P angioplasty with stent Family History Other CAD (coronary artery disease) Diabetes Social History Smoking and tobacco status: never smoked Alcohol intake: never Vitals/I&O/Wt Last Vital Signs Temp 98.5 F 11/08/20 10:43 Pulse 47 L 11/08/20 13:03 Resp 18 11/08/20 13:03 BP 218/97 11/08/20 13:03 Pulse Ox 98 11/08/20 13:03 Weight last 48 hrs Weight 150 lb Physical Exam Narrative: EXAM NARRATIVE: GENERAL: Patient is alert, awake and oriented x3. [] NECK: No jugular vein distension. [] HEENT: No cyanosis. No icterus. No pallor. [] HEART: Regular S1 and S2. No murmur, rub or gallop. [] LUNGS: Clear to auscultate bilaterally. [] ABDOMEN: Soft, nontender and nondistended. Positive bowel sounds. No guarding, rebound or tenderness. [] CENTRAL NERVOUS SYSTEM: Grossly nonfocal. [] EXTREMITIES: Lower extremities with no edema bilaterally. Left foot is cold. Lack of sensation. Can move the toes. Pulses not palpable in left lower extremity. Data : 11/09/20 04:15 11/09/20 04:15 A&P Assessment and plan (1) Limb ischemia: Status: Acute (2) Essential hypertension: Status: Acute (3) ASHD (arteriosclerotic heart disease): Status: Acute Patient presented with acute limb ischemia with thrombotic occlusion of left ostial SFA/profunda and no downstream flow. She underwent successful revascularization with balloon angioplasty that was performed emergently. Start Eliquis 2.5 mg twice daily. Continue aspirin. Blood pressure is uncontrolled. We will initiate amlodipine 10 mg, hydralazine 50 mg 3 times daily and hydrochlorothiazide. Patient described occasional heartburn. Given her prior coronary artery disease history, will perform echocardiogram also to rule out low cardiac function/LV thrombus for potential source of thrombotic occlusion of the ostial SFA/profunda Admit to CSU Attestations Medical Necessity Statement*: Care expected to cross 2 midnights. Presented with acute limb ischemia with emergent revascularization. Uncontrolled blood pressure Coding Level of Care Code Acute Applications Engineering Manager for [employer] Diagnoses Limb ischemia I99.8 Essential hypertension I10 ASHD (arteriosclerotic heart disease) I25.10
--- NOTE | 2020-11-08 14:30 | PC.NURSE ---
Patient arrived to unit with right groin sheath in place with pressure bag. Patient's right foot is cool and dorsalis pulse auscultated with doppler. Left foot is warm with doppler DP. Bennett catheter in place.
[2020-11-08] MEDS: hydroCHLOROthiazide 25 mg Tablet PO (16:33)
[2020-11-08] MEDS: amlodipine 10 mg Tablet PO (16:34)
[2020-11-08 16:40] LABS: Partial Thromboplastin Time > 250.0 SECONDS (23.9-36.7)
--- NOTE | 2020-11-08 16:40 | PC.NURSE ---
Contacted lab to obtain PTT results. Reported PTT > 250. Right groin sheath without leakage. Drsg intact.
--- NOTE | 2020-11-08 18:30 | PC.NURSE ---
Clarified with Dr. Nicholson to give only one dose of eliquis this evening then BID tomorrow as ordered. Give Eliquis after PTT returns to normal and sheath is pulled from right groin.
[2020-11-08 18:58] LABS: Partial Thromboplastin Time 96.8 SECONDS (23.9-36.7)
[2020-11-08 20:21] LABS: Partial Thromboplastin Time 42.5 SECONDS (23.9-36.7)
[2020-11-08] MEDS: apixaban 5 mg Tablet 2.5 MG PO (22:34)
[2020-11-09] VITALS (29 sets, daily range): BP systolic 126–204; BP diastolic 51–99; PULSE 46–85; RESP 13–19; TEMP 36.6–36.8; O2SAT 92–97
[2020-11-09 04:52] LABS: Basophils # 0.1 10^3/uL (0.0-0.1); Basophils % 0.6 %; Eosinophils # 0.3 10^3/uL (0.0-0.8); Hematocrit 39.9 % (37.0-47.0); Hemoglobin 12.8 g/dL (11.5-15.3); Lymphocytes # 1.9 10^3/uL (0.8-4.8); Lymphocytes % 21.4 %; Mean Corpuscular HGB Conc 32.1 g/dL (30.0-36.0); Mean Corpuscular Hemoglobin 30.7 pg (28.0-34.0); Mean Corpuscular Volume 95.7 fL (81-99); Monocytes # 0.7 10^3/uL (0.2-0.9); Neutrophils % 66.7 %; Nucleated Red Blood Cells % 0 %; Platelet Count 247 10^3/cmm (130-400); Red Blood Count 4.17 10^6/uL (4.1-5.3); Red Cell Distribution Width 13.5 % (12.1-15.1); White Blood Count 8.7 10^3/uL (4.0-10.0)
[2020-11-09 05:21] LABS: Alanine Aminotransferase 8 U/L (0-33); Albumin Level 3.5 g/dL (3.5-5.2); Alkaline Phosphatase 82 IU/L (35-105); Anion Gap 13.4 (5-19); Aspartate Amino Transferase 13 U/L (0-32); Blood Urea Nitrogen 14 mg/dL (8-23); Calcium 9.7 mg/dL (8.5-10.5); Carbon Dioxide 24 mmol/L (22-29); Chloride 105 mmol/L (98-107); Creatinine Clr Calc Pharmacy 50.7128; Glucose 100 mg/dL (65-115); Osmolality Calculated 289 mOsm/kg (285-295); Potassium 3.4 mmol/L (3.5-5.1); Sodium 139 mmol/L (136-145); Total Bilirubin 0.7 mg/dL (0.15-1.2); Total Protein 6.5 g/dL (6.6-8.7)
[2020-11-09] MEDS: hydroCHLOROthiazide 25 mg Tablet PO (09:16)
[2020-11-09] MEDS: hyDRALAzine 50 mg Tablet PO ×2 (09:17→12:01)
[2020-11-09] MEDS: amlodipine 10 mg Tablet PO (09:17)
[2020-11-09] MEDS: apixaban 5 mg Tablet 2.5 MG PO (09:18)
[2020-11-09] MEDS: hyDRALAzine 20 mg/mL INJ 1 mL 10 MG IVP (11:08)
--- NOTE | 2020-11-09 11:23 | PC.NURSE ---
Dr. Nicholson notified patient BP 204/75. Hydralazine 10 mg IVP prn administered. Telephone order to increase PO Hydralazine to 100 mg TID, give additional 50 MG PO NOW. Restart patient's home dose of enalapril 20 mg PO BID, first dose now. RBTO. Nurse to continue to monitor.
--- NOTE | 2020-11-09 12:31 | PM.PN ---
Subjective Subjective: Interval history: Patient presented yesterday with acute limb ischemia and underwent successful revascularization of thrombotic occlusion of ostial SFA/profunda. She has very uncontrolled blood pressures. Vitals/I&O/Wt Last Vital Signs Temp 98.3 F 11/09/20 11:03 Pulse 63 11/09/20 11:03 Resp 16 11/09/20 11:03 BP 204/75 11/09/20 11:05 Pulse Ox 94 11/09/20 11:03 11/08/20 11/09/20 11/09/20 22:59 06:59 14:59 Intake Total 906.787 / 906.787 200 / 1106.787 360 / 360 Output Total 1450 / 1450 800 / 2250 675 / 675 Balance -543.213 / -543.213 -600 / -1143.213 -315 / -315 Weight last 48 hrs Weight 150 lb Physical Exam Narrative: EXAM NARRATIVE: GENERAL: Patient is alert, awake and oriented x3. [] NECK: No jugular vein distension. [] HEENT: No cyanosis. No icterus. No pallor. [] HEART: Regular S1 and S2. No murmur, rub or gallop. [] LUNGS: Clear to auscultate bilaterally. [] ABDOMEN: Soft, nontender and nondistended. Positive bowel sounds. No guarding, rebound or tenderness. [] CENTRAL NERVOUS SYSTEM: Grossly nonfocal. [] EXTREMITIES: Lower extremities with no edema bilaterally. Left foot has palpable pulses. Normal sensation. Can move the foot normally. Urinary Catheter Management^: Bennett: Cath Placed During This Visit: yes, but has since been removed by the nurse Reason for Continuing Indwelling Catheter: Required Immobilization for Trauma or Surgery or Anesthesia Urinary Catheter Date of Insertion: 11/08/20 Date Urinary Catheter Removed: 11/09/20 Time Urinary Catheter Discontinued: 09:25 Data : 11/09/20 04:15 11/09/20 04:15 A&P Assessment and plan (1) Limb ischemia: Status: Acute (2) Essential hypertension: Status: Acute (3) ASHD (arteriosclerotic heart disease): Status: Acute Patient presented with acute limb ischemia with thrombotic occlusion of left ostial SFA/profunda and no downstream flow. She underwent successful revascularization with balloon angioplasty that was performed emergently. Continue Eliquis 2.5 mg twice daily. Continue aspirin. Blood pressure is uncontrolled. Continue amlodipine 10 mg daily and hydrochlorothiazide 25 mg daily. Hydralazine will be uptitrated to 100 mg 3 times daily. Restart enalapril at home dose. Echocardiogram performed today. Pending review. We will keep patient in hospital today for better blood pressure control and assessing her mobility. Attestations Medical Necessity Statement*: Care expected to cross 2 midnights. Patient had presented with acute limb ischemia and underwent successful revascularization. Blood pressure is uncontrolled requiring multiple medications. Coding Level of Care Code Acute Mid Level Business Analyst for [facility] Fwd Diagnoses Limb ischemia I99.8 Essential hypertension I10 ASHD (arteriosclerotic heart disease) I25.10
--- NOTE | 2020-11-09 15:13 | USCV_ITS ---
Glenda Josue Age: 80 Gender: F : 1940 Exam Date: 11/09/2020 05:51 Ordering Phys: Christopher Nicholson M.D ([email or web address]) Technologist: Bertha Srivastava [place] [facility] [place] Indication: CHEST PAIN BP: 150 / 51 HR: 58 Rhythm: Sinus Technical Quality: Adequate MEASUREMENTS (Male / Female) Normal Values 2D ECHO LV Diastolic Diameter PLAX 5.0 cm 4.2 - 5.9 / 3.9 - 5.3 cm LV Systolic Diameter PLAX 2.6 cm LV Chamber Size 4.5 cm IVS Diastolic Thickness 1.0 cm 0.6 - 1.0 / 0.6 - 0.9 cm IVS Systolic Thickness 1.6 cm LVPW Diastolic Thickness 1.1 cm 0.6 - 1.0 / 0.6 - 0.9 cm LVPW Systolic Thickness 2.1 cm RV Chamber Size 2.9 cm LVOT Diameter 2.0 cm LV Ejection Fraction 2D Teich 78.6 % LV Ejection Fraction MOD 2C 64.6 % LV Ejection Fraction 2C AL 64.3 % LA Diameter 4.3 cm LA Width 4.0 cm LA Height 4.3 cm RA Width 2.4 cm RA Height 3.0 cm Aorta at Sinotubular Diameter 3.2 cm M-MODE LV Diastolic Diameter MM 5.7 cm 4.2 - 5.9 / 3.9 - 5.3 cm LV Systolic Diameter MM 3.0 cm LV Ejection Fraction MM Teich 78.0 % IVS Diastolic Thickness MM 0.9 cm 0.6 - 1.0 / 0.6 - 0.9 cm IVS Systolic Thickness MM 1.5 cm LVPW Diastolic Thickness MM 1.3 cm 0.6 - 1.0 / 0.6 - 0.9 cm LVPW Systolic Thickness MM 2.0 cm RV Diastolic Diameter MM 2.0 cm Aortic Annulus Diameter 3.0 cm LA Ao Ratio MM 1.6 MV E Point Septal Separation 0.2 cm DOPPLER AV Peak Velocity 196.3 cm/s LVOT Peak Velocity 122.3 cm/s AV Area Cont Eq vti 2.0 cm squared AV Area Cont Eq pk 2.0 cm squared MV Area PHT 3.7 cm squared Mitral E to A Ratio 1.0 MV E' Velocity 108.0 cm/s TR Peak Velocity 278.5 cm/s TR Peak Gradient 31.0 mmHg TR Mean Velocity 206.8 cm/s TR Mean Gradient 19.0 mmHg TR Velocity Time Integral 90.9 cm TV Peak E Velocity 75.0 cm/s Right Atrial Pressure 3.0 mmHg Pulmonary Artery Systolic Pressu 34.0 mmHg PV Peak Velocity 63.0 cm/s RV Acceleration Time 0.1 s RV Ejection Time 0.3 s RV AcT/ET 0.4 FINDINGS Left Ventricle Normal left ventricular size. LV systolic function is normal with EF of 60-65%. No regional wall motion abnormalities are noted. Diastolic function is indeterminate as tissue Doppler was not performed. Right Ventricle The right ventricle is normal in size and function. Right Atrium The right atrium is normal in size. Left Atrium The left atrium is moderately dilated Mitral Valve Structurally normal mitral valve without significant stenosis or prolapse. There is mild mitral regurgitation. Aortic Valve Structurally normal aortic valve without significant sclerosis or stenosis. There is mild aortic regurgitation. Tricuspid Valve Structurally normal tricuspid valve without significant stenosis. Mild tricuspid regurgitation. RVSP is 35 to 40 mmHg consistent with mild pulmonary hypertension. Pulmonic Valve Not well-visualized.. Pericardium Normal pericardium without effusion. Aorta Normal ascending aorta dimension. CONCLUSIONS LV systolic function is normal with EF of 60 to 65%. Diastolic function is indeterminate. Moderate enlargement of the left atrium. Mild mitral regurgitation and mild aortic regurgitation seen. Mild tricuspid regurgitation is present. Mild pulmonary hypertension is seen. Compared to prior echocardiogram from 12/01/2016, no significant changes are seen. Christopher Nicholson MD (Electronically Signed) Final Date: 15 November 2020 12:16 S
[2020-11-09] MEDS: hyDRALAzine 50 mg Tablet 100 MG PO (15:28)
--- NOTE | 2020-11-09 19:37 | PC.NURSE ---
pt is upset, stating I wish david would listen to me. I've been on these pills before and they keep doubling up on them and they just mess with my heart and I'm not taking them anymore. Explained to pt that her blood pressure had been high and she stated, my heart rate is high and it's the medicine. Pt adament about not taking any medications tonight. Asked pt if her blood pressure or heart rate went up, she did not want any medication for it? She stated, I'm not taking any more medicine. I don't trust it.
--- NOTE | 2020-11-09 23:33 | PC.NURSE ---
Entered patient's room to do vital signs. Patient stated She didn't need or want any vital signs and wanted to be left alone RN notified. Patient also stated That she was leaving in the morning.
[2020-11-10 05:49] VITALS: PULSE 70
--- NOTE | 2020-11-10 06:27 | PC.NURSE ---
Dr. Fischer notified of patient refusing everything all night.
[2020-11-10 07:12] VITALS: RESP 18
--- NOTE | 2020-11-10 07:12 | PC.NURSE ---
pt is refusing vitals this morning.
[2020-11-10 07:59] VITALS: BP 166/90
--- NOTE | 2020-11-10 08:36 | PM.DCS ---
Discharge Providers Date of Admission: 11/08/20 14:25 Date of Discharge: November 10, 2020 Attending Provider at Admission: Christopher Nicholson M.D Attending Provider at Discharge: Christopher Nicholson M.D Primary Care Provider: Tamar Mcwilliams DO Diagnoses at Discharge Discharge Diagnosis (1) Limb ischemia: Status: Resolved Permanent problem details: Acute limb ischemia (2) Essential hypertension: Status: Acute (3) ASHD (arteriosclerotic heart disease): Status: Acute Reason for Visit Reason for Visit: L LEG PAIN Brief History: 80 year old female with past medical history of uncontrolled hypertension, coronary artery disease s/p AR in the past, history of noncompliance presented to the emergency room with 3 to 4 hours of left hip pain radiating down to her foot. She started noticing numbness in the foot. In the emergency room she will was found to have no pulses in the left lower extremity. Duplex arterial ultrasound showed no flow below the iliac arteries. Patient was started on heparin drip. Interventional cardiology was consulted and she was emergently taken to [facility] for angiogram. Hospital Course Hospital Course 80 year old female with past medical history of uncontrolled hypertension, coronary artery disease s/p AR in the past, history of noncompliance presented to the emergency room with 3 to 4 hours of left hip pain radiating down to her foot. She started noticing numbness in the foot. In the emergency room she will was found to have no pulses in the left lower extremity. Duplex arterial ultrasound showed no flow below the iliac arteries. Patient was started on heparin drip. Interventional cardiology was consulted and she was emergently taken to [facility] for angiogram. Aortic angiogram with runoff showed total thrombotic occlusion of ostial SFA. No flow was seen downstream. Flow was restored with balloon angioplasty. Post angiogram patient regained sensation and pain resolved. Patient's blood pressure remained uncontrolled during the hospital stay and patient refused medications at some times. She was discharged home on Eliquis 2.5mg BID for 1 month. She was bradycardic during hospital stay. Her atenolol was stopped and she was started in HCTZ and amlodipine. Physical Exam Narrative: EXAM NARRATIVE: GENERAL: Patient is alert, awake and oriented x3. [] NECK: No jugular vein distension. [] HEENT: No cyanosis. No icterus. No pallor. [] HEART: Regular S1 and S2. No murmur, rub or gallop. [] LUNGS: Clear to auscultate bilaterally. [] ABDOMEN: Soft, nontender and nondistended. Positive bowel sounds. No guarding, rebound or tenderness. [] CENTRAL NERVOUS SYSTEM: Grossly nonfocal. [] EXTREMITIES: Lower extremities with no edema bilaterally. Left foot has palpable pulses. Normal sensation. Can move the foot normally. Urinary Catheter Management^: Bennett: Cath Placed During This Visit: yes, but has since been removed by the nurse Reason for Continuing Indwelling Catheter: Required Immobilization for Trauma or Surgery or Anesthesia Urinary Catheter Date of Insertion: 11/08/20 Date Urinary Catheter Removed: 11/09/20 Time Urinary Catheter Discontinued: 09:25 Discharge Data Data Completed and Pending: Completed Studies During Hospitalization Category Date Time Status XR hip LT 2-3V wo /w pel* [id number] Stat Exams 11/08/20 10:51 [place] [id number] Stat Ultrasound 11/08/20 10:57 Completed Pending at discharge Category Date Time Status 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 for 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 Routin e Exams 11/08/20 12:50 Taken Platelet Count Q2 D Lab 11/12/20 04:00 Ordered Urine Culture Sta t Lab 11/08/20 12:45 Received CV echo complete* [id number] Routine Ultrasound 11/09/20 15:13 Taken Vitals: Last Vital Signs Temp 98.2 F 11/09/20 19:35 Pulse 70 11/10/20 05:49 Resp 18 11/10/20 07:12 BP 166/90 11/10/20 07:59 Pulse Ox 95 11/09/20 20:12 Discharge Plan Discharge Patient Disposition: Home Condition: Stable Prescriptions: New amlodipine 10 mg Tablet 10 mg PO DAILY Qty: 60 RF: 3 hydrochlorothiazide 25 mg Tablet 25 mg PO DAILY Qty: 60 RF: 0 Eliquis 5 mg Tablet 2.5 mg PO BID@0900,2100 Qty: 30 RF: 0 Continued aspirin [Adult Low Dose Aspirin] 81 mg tablet,delayed release (DR/EC) 81 mg PO DAILY@07 RF: 0 enalapril maleate 20 mg tablet 20 mg PO BID@, RF: 0 cyclobenzaprine 10 mg tablet 10 mg PO TID PRN (Reason: Pain) RF: 0 polyethylene glycol 3350 [Miralax] 17 gram/dose powder 17 gm PO DAILY PRN (Reason: Constipation) RF: 0 acetaminophen [Tylenol Extra Strength] 500 mg tablet 500 mg PO Q4H PRN (Reason: Pain) RF: 0 multivitamin Tablet 1 tab PO DAILY@07 RF: 0 Metamucil [facility] Fiber 3.4 gram/5.8 gram Powder 1.65 g PO DAILY PRN (Reason: Constipation) RF: 0 Held ibuprofen 200 mg Tablet 200 mg PO ONCE PRN (Reason: Pain) RF: 0 Hold Instructions: Resume on 11/12/20. Discontinued atenolol 100 mg Tablet 50 mg PO DAILY@07 RF: 0 Discharge Orders: Discharge Order (Routine); Ordered 11/10/20 Ordered By: Christopher Nicholson Referrals: Christopher Nicholson M.D [Physician] - 1 month (Please follow-up with Dr. Nicholson on December 08 at 3:30P.M. If you have any questions or need to reschedule. Please call ) Kiah Stuart FNP [Nurse Practitioner] - (Please follow-up with Kiah Stuart on November 18 at 2:30P.M. If you have any questions or need to reschedule. Please call ) Tamar Mcwilliams, [Primary Care Provider] - (PLEASE CALL FOR AN FOLLOW-UP APPOINTMENT WITH DR. MCWILLIAMS IN 4 TO 7 DAYS. ) Discharge Diet: Cardiac Discharge Activity: Increase activity as tolerated Patient Instructions: Hydrochlorothiazide (By mouth), Amlodipine (By mouth), Apixaban (By mouth), Peripheral Vascular Angioplasty (DC), Post Angiogram Home Care Instructions Activity Restrictions/Additional Instructions: Please do not lift more than 5 pounds of weight for the next 5 days Discharge Attestations Time Spent in Discharge Care*: greater than 30 min Quality Metrics Clinical Quality Measures During this hospital stay, did patient experience: None Coding Level of Care Code Acute Magnetic Resonance Imaging Coordinator for Chg Fwd Diagnoses Limb ischemia I99.8 Essential hypertension I10 ASHD (arteriosclerotic heart disease) I25.10
--- NOTE | 2020-11-10 08:51 | PC.CHAP ---
Pastoral Care Encounter/Spiritual Assessment Type of Contact [] Declined deflector operator visit [] Patient/Family/Request visit [] Outpatient visit [] Follow-up visit [] Physician referral [] Code/Alert [x] Routine visit [] Staff referral [] Actively dying [] Patient sleeping [] Family support [] [] Out of room [] Palliative care [] [] Receiving care in room [] Pre-surgical visit [] Trauma [] Long length of stay [] ICU visit [] Other: Relational/Emotional Strength [] Patient feels connected with others/family/visitors/staff [] Distress [] Loneliness/isolation [] Abandonment Spirituality of Patient [] Person of Demetria [] Attends Christianity of their Demetria [] Believes in Prayer [] Reads Bible or Orthodoxy materials [] There are Spiritual issues to be addressed Doughnut 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 Interventions [x] Prayer [] Active listening [] Non-anxious presence [] Spiritual/emotional support [] Crisis/trauma care [] Spiritual counseling [] Bereavement support [] Provided bereavement packet [] Provided Bible/devotional materials [] Provided toy/stuffed animal, coloring book to patient or family member [] Provided Communion [] Anointing/[place]cell [] Salvation [x] Completed spiritual assessment [] Other: Impact on Illness or Injury [] Angry [] Fearful [] Anxious [] Often cries [] Exhaustion [] Unable to work [] Unable to attend anabaptist [] Unable to walk/stand [] Unable to read [] Unable to drive [] Unable to eat/drink [] Unable to sleep [] Unable to be with family [] Patient intubated [] Other: Summary waiting for family to pick ... not willing to take meds... Time spent with patient 5 min
[2020-11-10] MEDS: hydroCHLOROthiazide 25 mg Tablet PO (09:25)
[2020-11-10] MEDS: apixaban 5 mg Tablet 2.5 MG PO (09:25)
[2020-11-10] MEDS: amlodipine 10 mg Tablet PO (09:27)
[2020-11-10 10:20] VITALS: PULSE 68; O2SAT 96
[2020-11-10 11:01] VITALS: RESP 18
--- NOTE | 2020-11-10 11:01 | PC.NURSE ---
Pt refusing vitals for me. is in the room with her they are just wanting to leave. waiting on the doctor to come in.
--- NOTE | 2020-11-10 13:30 | PC.NURSE ---
Discharge instructions given per the physician's instructions. Patient verbalized understanding of teaching and did not have any further questions. No further needs identified.
== END 2020-11-10 13:30 | disposition home or self-care (01) | DRG 254 ==
LOC: ER 10:53 → CCL 12:49 → CSU 15:51
PROVIDERS: Admitting Provider Internal Medicine; Emergency Provider Family Medicine; PCP Family Medicine; Visit Provider Internal Medicine
PROC: 047L3ZZ Dilation of Left Femoral Artery, Percutaneous Approach (ICD-10-PCS; principal; 2020-11-08 12:00)
PROC: 047L3ZZ Dilation of Left Femoral Artery, Percutaneous Approach (ICD-10-PCS; 2020-11-08 12:00)
DX: I74.3 Embolism and thrombosis of arteries of the lower extremities (principal); I10 Essential (primary) hypertension; I25.10 Atherosclerotic heart disease of native coronary artery without angina pectoris; Z95.5 Presence of coronary angioplasty implant and graft; I25.2 Old myocardial infarction; Z91.14 Patient's other noncompliance with medication regimen; F41.9 Anxiety disorder, unspecified
CPT/HCPCS: 12345; 36415; 37224; 51702; 73502; 75625; 75710; 80053; 81001; 85025; 85347; 85730; 87077; 87086; 87186; 93005; 93306; 93926; 99282; C1725; C1769; C1887; C1894; J0360; J1644; J2250; J3010; J3490; Q9967

== ENCOUNTER → 2020-11-24 10:01 | Outpatient (BNVA) | payer MEDICARE, SELFPAY | PROVIDERS: PCP Family Medicine; Visit Provider Nurse Practitioner Family | DX: I73.9 Peripheral vascular disease, unspecified (principal) | CPT/HCPCS: 80048 ==

== ENCOUNTER → 2021-12-30 09:48 | Outpatient (BNVA) | payer MEDICARE, SELFPAY | PROVIDERS: PCP Family Medicine; Visit Provider Internal Medicine | DX: Z09 Encounter for follow-up examination after completed treatment for conditions other than malignant neoplasm (principal); I25.10 Atherosclerotic heart disease of native coronary artery without angina pectoris; I21.9 Acute myocardial infarction, unspecified; I10 Essential (primary) hypertension; R09.89 Other specified symptoms and signs involving the circulatory and respiratory systems; Z95.820 Peripheral vascular angioplasty status with implants and grafts; Z78.9 Other specified health status; Z87.891 Personal history of nicotine dependence; Z79.82 Long term (current) use of aspirin | CPT/HCPCS: 99213; 99214 ==

== ENCOUNTER → 2022-07-07 10:16 | Outpatient (BNVA) | payer MEDICARE, SELFPAY | PROVIDERS: PCP Family Medicine; Visit Provider Internal Medicine | DX: I25.10 Atherosclerotic heart disease of native coronary artery without angina pectoris (principal); I25.2 Old myocardial infarction; I10 Essential (primary) hypertension; Z87.891 Personal history of nicotine dependence; Z95.820 Peripheral vascular angioplasty status with implants and grafts; Z78.9 Other specified health status; R09.89 Other specified symptoms and signs involving the circulatory and respiratory systems; I73.9 Peripheral vascular disease, unspecified | CPT/HCPCS: 99214 ==

== ENCOUNTER → 2023-01-05 10:58 | Outpatient (BNVA) | payer MEDICARE, SELFPAY | PROVIDERS: PCP Family Medicine; Visit Provider Internal Medicine | DX: I25.10 Atherosclerotic heart disease of native coronary artery without angina pectoris (principal); Z78.9 Other specified health status; I10 Essential (primary) hypertension; R09.89 Other specified symptoms and signs involving the circulatory and respiratory systems; Z95.820 Peripheral vascular angioplasty status with implants and grafts; I73.9 Peripheral vascular disease, unspecified; I25.2 Old myocardial infarction; Z87.891 Personal history of nicotine dependence; Z79.82 Long term (current) use of aspirin | CPT/HCPCS: 99214 ==

== ENCOUNTER → 2024-02-20 12:45 | Outpatient (BNVA) | payer MEDICARE, SELFPAY | PROVIDERS: PCP Family Medicine; Visit Provider Internal Medicine | DX: I25.10 Atherosclerotic heart disease of native coronary artery without angina pectoris (principal); Z78.9 Other specified health status; I10 Essential (primary) hypertension; R09.89 Other specified symptoms and signs involving the circulatory and respiratory systems; Z95.820 Peripheral vascular angioplasty status with implants and grafts; I73.9 Peripheral vascular disease, unspecified; I25.2 Old myocardial infarction; Z87.891 Personal history of nicotine dependence | CPT/HCPCS: 99214 ==

== ENCOUNTER 2024-03-06 10:37 | Outpatient (CLI) | payer MEDICARE, SELFPAY ==
--- NOTE | 2024-03-06 11:15 | USCV_ITS ---
Glenda Josue Age: 83 Gender: F : 1940 Exam Date: 03/06/2024 10:50 Ordering Phys: Christopher Nicholson M.D ([email or web address]) Technologist: CT Exam Location: [facility] – [place] Indication: sob BP: 168 / 82 HR: 59 Rhythm: Sinus Technical Quality: Adequate MEASUREMENTS (Male / Female) Normal Values 2D ECHO LVOT Diameter 2.0 cm LV Ejection Fraction MOD 2C 64.6 % LV Ejection Fraction 2C AL 65.1 % LA Diameter 5.1 cm RA Systolic Volume 4C AL 19.0 ml RA Systolic Volume 4C MOD 18.6 ml LA Sys Volume AL 54.4 cm cubed LA Sys Volume Index AL 31.0 cm cubed/m squared Aorta at Sinotubular Diameter 2.8 cm M-MODE LA Ao Ratio MM 2.0 AV Cusp Separation MM 2.2 cm DOPPLER AV Peak Velocity 211.0 cm/s LVOT Peak Velocity 99.0 cm/s AV Area Cont Eq vti 2.0 cm squared AV Area Cont Eq pk 1.5 cm squared MV Peak Velocity 123.0 cm/s MV Area PHT 2.9 cm squared Mitral E to A Ratio 0.7 TV Peak Velocity 244.5 cm/s TR Peak Velocity 306.0 cm/s TR Peak Gradient 37.5 mmHg TV Peak E Velocity 55.0 cm/s Right Atrial Pressure 3.0 mmHg Pulmonary Artery Systolic Pressu 40.5 mmHg FINDINGS Left Ventricle Normal left ventricular cavity size. Mild left ventricular hypertrophy. Normal left ventricular systolic function. No regional wall motion abnormalities. Grade I/IV diastolic dysfunction (abnormal relaxation filling pattern), normal to mildly elevated filling pressures. Left ventricular ejection fraction is estimated at 65 %. Right Ventricle Normal right ventricular size and systolic function. Mild pulmonary hypertension, RVSP 40.5 mmHg. Right Atrium Mildly increased right atrial size. Left Atrium Moderately increased left atrial size. Mitral Valve Structurally normal mitral valve. Mild mitral valve regurgitation. Aortic Valve Structurally normal trileaflet aortic valve. Mild aortic valve regurgitation. No aortic valve stenosis. Tricuspid Valve Structurally normal tricuspid valve. Mild tricuspid valve regurgitation. Pulmonic Valve Pulmonic valve not well visualized. Trace pulmonary valve regurgitation. Pericardium Normal pericardium without effusion. Aorta Normal ascending aorta dimension. IVC The inferior vena cava appears normal. CONCLUSIONS Normal left ventricular cavity size. Mild left ventricular hypertrophy. Normal left ventricular systolic function. No regional wall motion abnormalities. Grade I/IV diastolic dysfunction (abnormal relaxation filling pattern), normal to mildly elevated filling pressures. Left ventricular ejection fraction is estimated at 65 %. Normal right ventricular size and systolic function. Mild pulmonary hypertension, RVSP 40.5 mmHg. Mildly increased right atrial size. Moderately increased left atrial size. Structurally normal mitral valve. Mild mitral valve regurgitation. Structurally normal trileaflet aortic valve. Mild aortic valve regurgitation. No aortic valve stenosis. Previous study 11/15 2020. There is no change. Dr. Richard Diamond MD (Electronically Signed) Final Date: 06 March 2024 14:30 S
== END 2024-03-06 10:38 | disposition home or self-care (01) ==
LOC: RAD 10:39
PROVIDERS: PCP Family Medicine; Visit Provider Internal Medicine
DX: R06.02 Shortness of breath (principal); I34.0 Nonrheumatic mitral (valve) insufficiency; I37.1 Nonrheumatic pulmonary valve insufficiency; I36.1 Nonrheumatic tricuspid (valve) insufficiency; I35.1 Nonrheumatic aortic (valve) insufficiency; I51.7 Cardiomegaly
CPT/HCPCS: 93306

== ENCOUNTER → 2024-11-27 09:54 | Outpatient (BNVA) | payer MEDICARE, SELFPAY | PROVIDERS: PCP Family Medicine; Visit Provider Internal Medicine | DX: I25.10 Atherosclerotic heart disease of native coronary artery without angina pectoris (principal); I10 Essential (primary) hypertension; I73.9 Peripheral vascular disease, unspecified; Z78.9 Other specified health status; R09.89 Other specified symptoms and signs involving the circulatory and respiratory systems; Z95.820 Peripheral vascular angioplasty status with implants and grafts; I25.2 Old myocardial infarction; R55 Syncope and collapse; Z87.891 Personal history of nicotine dependence | CPT/HCPCS: 36415; 80048; 83880; 85025; 99214 ==

== ENCOUNTER 2025-01-03 08:49 | Emergency (ER) | payer MEDICARE, SELFPAY ==
[2025-01-03 08:49] VITALS: BP 203/91; PULSE 62; RESP 17; TEMP 36.7; O2SAT 94; BMI 24.8
--- NOTE | 2025-01-03 09:12 | ECG_ITS ---
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 Measurements Intervals [place] Rate: 61 P: 3 VA: 151 QRS: 18 QRSD: 83 T: 12 QT: 407 QTc: 412 Interpretive Statements SINUS RHYTHM Compared to ECG 11/08/2020 11:26:02 Sinus bradycardia no longer present Electronically Signed On 01-03-2025 18:12:14 CDT by Christopher Nicholson M.D. [id number]
--- NOTE | 2025-01-03 09:12 | XRR_ITS ---
PROCEDURE INFORMATION: Exam: XR Chest Exam date and time: 01/03/2025 9:16 AM Age: 84 years old Clinical indication: Chest pain/pressure. Dizziness. TECHNIQUE: Imaging protocol: Radiologic exam of the chest. Views: 1 view. COMPARISON: CR XR chest 1V portable [id number] 02/08/2020 7:27 AM FINDINGS: Lungs: Minimal scarring or atelectasis at the lung bases. Pleural spaces: No pleural effusion. No pneumothorax. Heart/Mediastinum: The cardiac silhouette is unchanged. Probable calcified mediastinal lymph nodes. No gross evidence of pneumomediastinum. Diaphragm: Persistent elevation of the right hemidiaphragm. Bones/joints: No gross fracture. XR/XR chest 1V portable [id number] IMPRESSION: No acute cardiopulmonary abnormality identified.
[2025-01-03 09:35] LABS: Basophils # 0.1 10^3/uL (0.0-0.1); Basophils % 0.7 %; Eosinophils # 0.3 10^3/uL (0.0-0.8); Eosinophils % 3.9 %; Hematocrit 44.6 % (36-47); Lymphocytes # 1.4 10^3/uL (0.8-4.8); Mean Corpuscular HGB Conc 32.1 g/dL (30-55); Mean Corpuscular Hemoglobin 30.4 pg (27-33); Mean Corpuscular Volume 94.9 fl (85-98); Mean Platelet Volume 9.3 fL (7.4-10.4); Monocytes # 0.4 10^3/uL (0.2-0.9); Monocytes % 6.1 %; Neutrophils # 4.97 10^3/uL (1.8-7.7); Nucleated Red Blood Cells % 0 %; Platelet Count 304 10^3/cmm (157-399); Red Cell Distribution Width 13.4 % (12.1-15.1)
[2025-01-03 09:57] LABS: Troponin(5th) Baseline 13 ng/L (0-10)
[2025-01-03] MEDS: meclizine 25 mg tablet PO (10:05)
[2025-01-03] MEDS: aspirin 81 mg Chew Tablet 324 MG PO (10:05)
[2025-01-03 10:09] VITALS: BP 201/93; PULSE 62; O2SAT 95
[2025-01-03 10:10] LABS: Alanine Aminotransferase 9 U/L (0-33); Albumin Level 4.3 g/dL (3.5-5.2); Alkaline Phosphatase 118 U/L (35-105); Anion Gap 12.9 (5-19); Aspartate Amino Transferase 14 U/L (0-32); Blood Urea Nitrogen 12 mg/dL (8-23); Calcium 9.9 mg/dL (8.5-10.5); Carbon Dioxide 23 mmol/L (22-29); Chloride 107 mmol/L (98-107); Creatinine Clr Calc Pharmacy 45.2329; Globulin 3.3 g/dL (1.3-4.6); Glucose 113 mg/dL (65-115); Lipase 21 U/L (13-60); NT Pro B Type Natriuretic Pept 269 pg/mL (0-450); Osmolality Calculated 289 mOsm/kg (285-295); Potassium 3.9 mmol/L (3.5-5.1); Sodium 139 mmol/L (136-145); Total Bilirubin 0.7 mg/dL (0.15-1.2); Total Protein 7.6 g/dL (6.6-8.7)
--- NOTE | 2025-01-03 11:12 | ECG_ITS ---
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
--- NOTE | 2025-01-03 11:20 | W.ED.DIZZY ---
HPI - Dizziness General: Chief Complaint: Dizziness Stated Complaint: dizzy; weakness Time Seen by Provider: 01/03/25 09:03 History of Present Illness: HPI Narrative: This patient is an 84-year-old female presenting with dizziness upon standing. She said she felt okay when she went to bed last night but when she woke up around midnight to let her dog out she was so dizzy that she could hardly walk. She went back to bed and this morning when she got up she felt the same way. She has minimal dizziness as long as she is laying down. If she turns her head quickly while laying down she might have a little bit of dizziness. She has had nausea but no vomiting. She has discomfort in her chest. She also notes that she has been extremely fatigued. 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 She does have a history of coronary artery disease with stents about 10 years ago. He has a history of hypertension and has not taken her morning medications. She was also started on Eliquis about 2 weeks ago for a new diagnosis of atrial fibrillation. She has had episodes of dizziness for many years but never this severe. She said that she has been having more episodes of dizziness over the past 3 weeks but not necessarily as bad as this. She has taken meclizine in the past but did not have any at home currently. She admits to a slight headache. She denies any other recent illness. She denies shortness of breath except when she is up moving and gets very dizzy. She does tell me that for quite some time she has noted that every time she takes a shower she feels like her heart is pounding and she is out of breath by the end of the shower. She is not sure if she mentioned that to her regular doctor. On my evaluation she was not having dizziness or chest discomfort. Related Data Home Medications ?Medication ?Instructions ?Recorded ?Confirmed aspirin 81 mg tablet,delayed 81 mg PO DAILY@10/15/19 11/27/24 release (Adult Low Dose Aspirin) acetaminophen 500 mg tablet 500 mg PO Q4H PRN Pain 10/16/19 11/27/24 (Tylenol Extra Strength) cyclobenzaprine 10 mg tablet 10 mg PO TID PRN Pain 10/16/19 11/27/24 enalapril maleate 20 mg tablet 20 mg PO BID@,10/16/19 11/27/24 ibuprofen 200 mg tablet 200 mg PO ONCE PRN Pain 11/08/20 11/27/24 Held on 11/10/20. Instructions: Resume on 11/12/20. multivitamin 1 tab PO DAILY@07 11/08/20 11/27/24 sennosides 8.6 mg tablet 8.6 mg PO DAILY 06/29/21 11/27/24 alprazolam 0.25 mg tablet (Xanax) 0.25 mg PO TID PRN 07/07/22 11/27/24 Vitamin D3 PO 11/27/24 Previous Rx's ?Medication ?Instructions ?Recorded amlodipine 10 mg tablet 10 mg PO DAILY #60 tabs 11/10/20 apixaban 5 mg tablet (Eliquis) 5 mg PO BID #60 tabs 12/08/24 meclizine 25 mg tablet 12.5 mg (1/2 x 25 mg) PO QID PRN 01/03/25 dizziness #14 tabs nitrofurantoin macrocrystal 100 mg 100 mg PO BID 5 days #10 caps 01/03/25 capsule Allergies Allergy/AdvReac Type Severity Reaction Status Date / Time levofloxacin (From Levaquin) Allergy Severe ADR-Cramping Verified 02/20/24 13:01 of the Muscles metronidazole Allergy Intermediate Unknown Verified 02/20/24 13:01 Penicillins Allergy Intermediate Unknown Verified 02/20/24 13:01 sulfamethoxazole (From Allergy Intermediate ADR-Vomitin Verified 11/27/24 10:09 Bactrim) g trimethoprim (From Bactrim) Allergy Intermediate ADR-Vomitin Verified 11/27/24 10:09 g PFSH ED PFS: Medical History (Updated 01/03/25 @ 13:43 by Suzanne Ashraf MD) Statin intolerance Dizziness and anxiety Essential hypertension ASHD (arteriosclerotic heart disease) Myocardial infarction Carotid bruit Plavix resistance Surgical History S/P angioplasty with stent Family History Other CAD (coronary artery disease) Diabetes Social History Smoking and tobacco/nicotine status: former use of tobacco/nicotine Alcohol intake: never Substance/Drug Use: never Physical Exam Const: COMMON NORMALS: no acute distress, patient oriented x3, no limitations and alert GENERAL APPEARANCE: cooperative and comfortable HENMT: HEAD & SCALP: normal to inspection FACE & SINUS: normal facial exam Eye: GENERAL EYE: appearance normal, both eyes and all related structures Neck/C-Spine: COMMON NORMALS: supple, no meningeal signs and no JVD Chest: COMMONS NORMALS: normal inspection of the chest Resp: COMMON NORMALS: normal respiratory effort, No use of accessory muscles and clear to auscultation bilaterally AUSCULTATION: clear to auscultation bilaterally Cardio: COMMON NORMALS: no JVD, regular rate, regular rhythm and No murmurs present (Cardio) RATE: regular rate RHYTHM: regular rhythm GI: COMMON NORMALS: Normal to inspection, nondistended, normoactive bowel sounds present, Soft to palpation and non-tender INSPECTION: Yes normal to inspection AUSCULTATION: Yes normoactive bowel sounds PALPATION: Yes Soft to palpation Back/Pelvis: COMMON NORMALS: thoracic and lumbar spine normal to inspection Extremity: COMMON NORMALS: normal to inspection Neuro: COMMON NORMALS: patient oriented x3, moves all extremities, no focal motor deficits and no sensory deficits noted SENSORIUM/ORIENTATION: Yes alert MENINGEAL SIGNS: Yes no meningeal signs Psych: COMMON NORMALS: mental status grossly normal, cooperative and normal affect Skin: COMMON NORMALS: no rashes or lesions noted and turgor normal GENERAL SKIN EXAM: no rashes or lesions noted and turgor normal Course Vital Signs: Vital signs: Vital Signs Temperature 98.0 F 01/03/25 08:49 Pulse Rate 58 L 01/03/25 14:06 Respiratory Rate 17 01/03/25 08:49 Blood Pressure 185/82 01/03/25 14:06 Pulse Oximetry 95 01/03/25 14:06 Oxygen Delivery Me thod Room Air 01/03/25 13:26 MDM - Dizziness Medical Decision Making On exam today she has a regular rate and rhythm. No murmurs gallops or rubs. No peripheral edema. Her blood pressure is elevated. No focal neurologic deficits. I did not attempt to ambulate her on my initial exam. Differential includes cardiac atherosclerotic disease as well as dysrhythmias. Orthostatic hypotension could also be a cause. I think this is less likely to be a stroke but that is also in the differential. Cardiac workup was negative. She does have a UTI. She said she was treated for 1 about 3 months ago. She had some improvement with meclizine. Her neurologic exam remained nonfocal. Orthostatics were negative. I was able to ambulate her in the ED with no apparent difficulties. She does however ambulate with a cane at baseline. Lab Data 01/03/25 09:25 01/03/25 09:25 Radiology Impressions Chest X-Ray 01/03/25 09:12 IMPRESSION: No acute cardiopulmonary abnormality identified. Laboratory Results WBC 7.10 10^3/uL (3.29-11.43) 01/03/25: RBC 4.70 10^6/uL (3.85-5.65) 01/03/25 09: Hgb 14.30 g/dL (11.27-16.99) 01/03/25: Hct 44.6 % (36-47) 01/03/25: MCV 94.9 fl (85-98) 01/03/25: MCH 30.4 pg (27-33) 01/03/25: MCHC 32.1 g/dL (30-55) 01/03/25: RDW 13.4 % (12.1-15.1) 01/03/25 09:25 Plt Count 304 10^3/cmm (157-399) 01/03/25 09:25 MPV 9.3 fL (7.4-10.4) 01/03/25 09:25 Neut % (Auto) 70.0 % 01/03/25 09:25 Lymph % (Auto) 19.0 % 01/03/25 09:25 [place] % (Auto) 6.1 % 01/03/25:25 Eos % (Auto) 3.9 % 01/03/25:25 Baso % (Auto) 0.7 % 01/03/25:25 Neut # (Auto) 4.97 10^3/uL (1.8-7.7) 01/03/25 09:25 Lymph # (Auto) 1.4 10^3/uL (0.8-4.8) 01/03/25 09:25 [place] # (Auto) 0.4 10^3/uL (0.2-0.9) 01/03/25 09:25 Eos # (Auto) 0.3 10^3/uL (0.0-0.8) 01/03/25 09:25 Baso # (Auto) 0.1 10^3/uL (0.0-0.1) 01/03/25 09:25 Nucleated RBC % (auto) 0 % 01/03/25 09: Nucleated RBCs # 0.0 /100WBC 01/03/25 09:25 PT 13.90 SECONDS (12.1-14.9) 01/03/25 09: INR 1.00 (0.8-1.2) 01/03/25 09:25 Sodium 139 mmol/L (136-145) 01/03/25 09:25 Potassium 3.9 mmol/L (3.5-5.1) 01/03/25 09:25 Chloride 107 mmol/L (98-107) 01/03/25 09: Carbon Dioxide 23 mmol/L (22-29) 01/03/25 09:25 Anion Gap 12.9 (5-19) 01/03/25 09:25 BUN 12 mg/dL (8-23) 01/03/25 09:25 Creatinine 0.7 mg/dL (0.5-0.9) 01/03/25 09:25 GFR Calculation Not Reportable 01/03/25: Glucose 113 mg/dL (65-115) 01/03/25 09:25 Calculated Osmolality 289 mOsm/kg (285-295) 01/03/25 09:25 Calcium 9.9 mg/dL (8.5-10.5) 01/03/25 09:25 Total Bilirubin 0.7 mg/dL (0.15-1.2) 01/03/25 09:25 AST 14 U/L (0-32) 01/03/25:25 ALT 9 U/L (0-33) 01/03/25 09:25 Alkaline Phosphatase 118 U/L (35-105) H 01/03/25 09:25 Troponin T Baseline 13 ng/L (0-10) H 01/03/25 09:25 Troponin T 120 Minute 13.10 ng/L (0-10) H 01/03/25 11:06 Delta Troponin T 0.10 ABS# (0-10) 01/03/25 11:06 NT-Pro-B Natriuret Pep 269 pg/mL (0-450) 01/03/25 09:25 Total Protein 7.6 g/dL (6.6-8.7) 01/03/25 09:25 Albumin 4.3 g/dL (3.5-5.2) 01/03/25 09:25 Globulin 3.3 g/dL (1.3-4.6) 01/03/25 09:25 Lipase 21 U/L (13-60) 01/03/25 09:25 Urine Color Yellow (Yellow) 01/03/25 13:26 Urine Appearance Clear (CLEAR) 01/03/25 13:26 Urine pH 7 (5-7) 01/03/25 13:26 Ur Specific [place] 1.000 (1.005-1.030) L 01/03/25 13:26 Urine Protein Neg (Negative) 01/03/25 13:26 Urine Glucose (UA) Norm (Normal) 01/03/25 13:26 Urine Ketones Negative (Negative) 01/03/25 13:26 Urine Blood Neg (Negative) 01/03/25 13:26 Urine Nitrate Positive (Negative) A 01/03/25 13:26 Urine Bilirubin Neg (Negative) 01/03/25 13:26 Urine Urobilinogen Neg mg/dL (Negative) 01/03/25 13:26 Ur Leukocyte Esterase Negative (Negative) 01/03/25 13:26 Urine RBC 0-2 /hpf (0-2) 01/03/25 13:26 Urine WBC 21-50 /hpf (0-5) H 01/03/25 13:26 Ur Squamous Epith Cells 0-5 /hpf (0-5) 01/03/25 13:26 Amorphous Sediment Not Reportable 01/03/25 13:26 Urine Bacteria 4+ /hpf (NONE) H 01/03/25 13:26 Hyaline Casts 0-4 /lpf H 01/03/25 13:26 All radiology interpretation(s) finalized by discharge Discharge Plan Discharge Patient Disposition: Home Clinical Impression: Urinary tract bacterial infections, Essential hypertension, Dizziness, Atrial fibrillation Condition: Stable Prescriptions: New meclizine 25 mg tablet 12.5 mg PO QID PRN (Reason: dizziness) Qty: 14 0RF nitrofurantoin macrocrystal 100 mg capsule 100 mg PO BID 5 Days Qty: 10 0RF Rx Instructions: must administer with a meal/food No Action aspirin [Adult Low Dose Aspirin] 81 mg tablet,delayed release (DR/EC) 81 mg PO DAILY@07 enalapril maleate 20 mg tablet 20 mg PO BID@07,19 cyclobenzaprine 10 mg tablet 10 mg PO TID PRN (Reason: Pain) acetaminophen [Tylenol Extra Strength] 500 mg tablet 500 mg PO Q4H PRN (Reason: Pain) sennosides 8.6 mg tablet 8.6 mg PO DAILY alprazolam [Xanax] 0.25 mg tablet 0.25 mg PO TID PRN Vitamin D3 PO Eliquis 5 mg tablet 5 mg PO BID Qty: 60 3RF multivitamin Tablet 1 tab PO DAILY@07 ibuprofen 200 mg Tablet 200 mg PO ONCE PRN (Reason: Pain) amlodipine 10 mg Tablet 10 mg PO DAILY Qty: 60 3RF Discharge Orders: Discharge ED (Routine); Ordered 01/03/25 Ordered By: Suzanne Ashraf Referrals: Tamar Gudino DO [Primary Care Provider] - Patient Instructions: Opioid Safety, Pain Management Activity Restrictions/Additional Instructions: Take your regular medications as prescribed. Take the Nitrofurantoin (for a urinary tract infection) twice daily for 5 days Use the meclizine - one half to a full tablet - every 6 hours if needed for dizziness. Print Language: Irish Coding Level of Care Code ED Vp Cardiovascular Service Line for Garo Lyle
[2025-01-03 11:54] VITALS: BP 175/78; BP 192/94; BP 205/100; PULSE 57; PULSE 61; PULSE 72
[2025-01-03 13:26] VITALS: BP 176/77; PULSE 80; O2SAT 95
[2025-01-03 13:30] LABS: Add Urine Microscopic? NO
[2025-01-03 13:35] LABS: Bacteria Urine 4+ /hpf; Hyaline Casts Urine 0-4 /lpf; RBC Urine 0-2 /hpf (0-2); Squamous Epithelial Cell Urine 0-5 /hpf (0-5); WBC Urine 21-50 /hpf (0-5)
[2025-01-03 13:36] LABS: Add Urine Culture? Yes; Bilirubin Urine Neg (Negative); Blood Urine Neg (Negative); Charge for UA Resulting for Rev; Glucose Urine UA Norm (Normal); Ketones Urine Negative (Negative); Leukocyte Esterase Urine Negative (Negative); Nitrate Urine Positive (Negative); Protein Urine Neg (Negative); Urine Appearance Clear (CLEAR); Urine Color Yellow (Yellow); Urobilinogen Urine Neg (Negative); pH Urine 7 (5-7)
[2025-01-03 14:06] VITALS: BP 185/82; PULSE 58; O2SAT 95
[2025-01-05 13:42] LABS: Glucose Point of Care 100 mg/dL (70-110)
== END 2025-01-03 14:07 | disposition home or self-care (01) ==
PROVIDERS: Emergency Provider Emergency Medicine; PCP Family Medicine
DX: N39.0 Urinary tract infection, site not specified (principal); I10 Essential (primary) hypertension; R42 Dizziness and giddiness; I48.91 Unspecified atrial fibrillation; Z79.01 Long term (current) use of anticoagulants; Z87.891 Personal history of nicotine dependence
CPT/HCPCS: 36415; 36416; 71045; 80053; 81003; 82962; 83690; 83880; 84484; 85025; 85610; 87077; 87086; 87186; 93005; 99285; J8597; J9999

== ENCOUNTER → 2025-01-20 13:00 | Outpatient (BNVA) | payer MEDICARE, SELFPAY | PROVIDERS: PCP Family Medicine; Visit Provider Internal Medicine | DX: I25.10 Atherosclerotic heart disease of native coronary artery without angina pectoris (principal); Z78.9 Other specified health status; I10 Essential (primary) hypertension; R09.89 Other specified symptoms and signs involving the circulatory and respiratory systems; Z95.820 Peripheral vascular angioplasty status with implants and grafts; I73.9 Peripheral vascular disease, unspecified; I25.2 Old myocardial infarction | CPT/HCPCS: 99214 ==

== ENCOUNTER → 2025-04-22 09:17 | Outpatient (BNVA) | payer MEDICARE, SELFPAY | PROVIDERS: PCP Family Medicine; Visit Provider Nurse Practitioner Family | DX: I25.10 Atherosclerotic heart disease of native coronary artery without angina pectoris (principal); I10 Essential (primary) hypertension; I73.9 Peripheral vascular disease, unspecified; Z79.01 Long term (current) use of anticoagulants; Z78.9 Other specified health status; Z95.5 Presence of coronary angioplasty implant and graft; Z87.891 Personal history of nicotine dependence; I25.2 Old myocardial infarction | CPT/HCPCS: 99213 ==

== ENCOUNTER 2025-06-09 11:06 | Emergency (ER) | payer MEDICARE, SELFPAY ==
--- OUTSIDE RECORDS SUMMARY | 2025-06-02 13:00 | XMS_ITS | Encounter Summary ---
Author Organization [facility] Address [address] [place] [address] Care Team Providers Care Real Estate Sales Supervisor Name Role Phone Tamar Gudino Primary Care Provider [phone] Reason for Visit * Reason Comments Eye Problem Pt states left eye a nd eyelid has gotten Encounter Details Date Type Department Care Team (Late st Contact Info) Description 06/02/2025 1:00 PM CDT Office Visit [facility] [place] [address] [place] [address] Kimberly King, [facility] [address] [place] [id number] Blepharitis of both upper and lower eyelid of left eye, unspecified type (Primary Dx) Social History Tobacco Use Types Packs/Day Years Used Date Smoking Tobacco: Former Cigarettes Q uit: 03/01/1974 Smokeless Tobacco: Never Alcohol Use Standard Drinks/Week Comments No 0 (1 standard drink = 0.6 oz pur e alcohol) Financial Resource Strain Answer Date R ecorded How hard is it for you to pa y for the very basics like food, housing, medical care, and heating? Not hard at all 09/11/2022 Food Insecurity Answer Date Recorded In the past 12 months, have you worried that your food would run out before you had money to buy more? Sometimes true 2021 In the past 12 months, did y ou run out of food and didn't have money to buy more? Never true 09/11/2022 Transportation Needs Answer Date Record ed In the past 12 months, has l ack of transportation kept you from medical appointments or from getting medications? 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 Gender Identity Not on file Sexual Orientation Not on file documented as of this encounter Last Filed Vital Signs Vital Sign Reading Time Taken Comments Blood Pressure 132/70 06/02/2025 12:45 PM CDT Pulse 99 06/02/2025 12:45 PM CDT Temperature 37 C (98.6 F) 06/02/2025 12:45 PM CDT Respiratory Rate 17 06/02/2025 12:45 PM CDT Oxygen Saturation 96% 06/02/2025 12:45 PM CDT Inhaled Oxygen Concentration - - Weight 64 kg (141 lb 3.2 oz) 06/02/2025 12:45 PM CDT Height 157.5 cm (5' 2 ) 06/02/2025 12:45 PM CDT Body Mass Index 25.83 06/02/2025 12:45 PM CDT documented in this encounter Patient Instructions * Attachments The following attachments cannot be sent through Care Everywhere. * Blepharitis (French) documented in this encounter Progress Notes * Kimberly King, JUANITO - 06/02/2025 12:47 PM CDT Chief Complaint Patient presents with Eye Problem Pt states left eye and eyelid has gotten Patient Active Problem List Diagnosis Code Non-seasonal allergic rhinitis due to pollen J30.1 Primary osteoarthritis involving multiple joints M15.0 Essential hypertension I10 Mixed hyperlipidemia E78.2 Diverticular disease K57.90 Scoliosis of thoracic spine M41.9 Kyphosis M40.209 Idiopathic chronic gout of multiple sites without tophus [id number] Hallux valgus (acquired) M20.10 Personal history of other malignant neoplasm of skin Z85.828 Type 2 diabetes mellitus without complication, without long-term current use of insulin E11.9 Irritable bowel syndrome with constipation K58.1 Atherosclerosis of creek coronary artery of creek heart without angina pectoris I25.10 Generalized anxiety disorder F41.1 History of Present Illness The patient is an 84-year-old female experiencing discomfort in her eyelid and eye. Her left eye appears normal in the morning but becomes red by evening, accompanied by a sensation of a foreign object. These symptoms began two weeks ago. She uses antibiotic cream, which improves the morning appearance of her eye, and dry eye drops at night. 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 Occasionally, she experiences flashes of light and turquoise vision when outdoors or without glasses. The eye discharge is watery and occasionally drains. There have beenno recent fevers or unusual symptoms. She does not remember any foreign objects entering her eye and has not used heat therapy. 10 point review of systems is otherwise negative except as mentioned above. Past Medical History: Diagnosis Date Allergic rhinitis Arthritis Diverticular disease 06/04 Hyperlipemia Unable to take statins Hypertension IBS (irritable bowel syndrome) diverticulosis HI (myocardial infarction) ([facility]) 11/30/2016 Muscle spasms of head and/or neck Type II or unspecified type diabetes mellitus without mention of complication, not stated as uncontrolled 02/06/2008 Current Outpatient Medications Medication Instructions acetaminophen (TYLENOL) 500 mg, TWO TIMES DAILY albuterol sulfate HFA 90 mcg/actuation aerosol inhaler 2 Puffs, Inhalation, EVERY 6 HOURS PRN ALPRAZolam (XANAX) 0.25 mg tablet TAKE ONE TABLET BY MOUTH NIGHTLY NEEDED FOR ANXIETY. amLODIPine (NORVASC) 10 mg, Oral, DAILY aspirin (ASPIR-81 ORAL) 1 Tablet, DAILY cyclobenzaprine (FLEXERIL) 10 mg tablet take 1 tablet by mouth three times daily as needed for spasm Eliquis 5 mg tablet 1 Tablet, TWO TIMES DAILY enalapril (VASOTEC) 40 mg, Oral, DAILY erythromycin (ILOTYCIN) 5 mg/gram (0.5 %) ointment 0.5 Inches, Left Eye, EVERY 6 HOURS meclizine HCl (MECLIZINE ORAL) TWO TIMES DAILY MULTIVITAMIN WITH MINERALS ORAL Take by mouth. Past Surgical History: Procedure Laterality Date DILATION AND CURETTAGE times 2 HX APPENDECTOMY 1957 HX CHOLECYSTECTOMY 1987 HX LAMINECTOMY 2003 [place] NEUROPLASTY &/TRANSPOS MEDIAN NRV CARPAL TUNNE 07/05/2009 CARPAL TUNNEL RELEASE performed by GODFREY MARIA at [facility] [place] NEUROPLASTY &/TRANSPOS MEDIAN NRV CARPAL TUNNE 08/09/2009 CARPAL TUNNEL RELEASE performed by GODFREY MARIA at [facility] Past social, family, and medical history reviewed. BP 132/70 Pulse 99 Temp 98.6 ??F (37 ??C) Resp 17 Ht 5' 2 (1.575 m) Wt 64 kg (141 lb 3.2oz) SpO2 96% BMI 25.83 kg/m?? Physical Exam Constitutional: General: She is not in acute distress. Appearance: Normal appearance. She is not ill-appearing. HENT: Right Ear: External ear normal. Left Ear: External ear normal. Eyes: General: Left eye: No foreign body, discharge or hordeolum. Extraocular Movements: Extraocular movements intact. Conjunctiva/sclera: Conjunctivae normal. Left eye: Left conjunctiva is not injected. Pupils: Pupils are equal, round, and reactive to light. Comments: Left external upper and lower eyelid skin is erythema but without tenderness and no discharge. Cardiovascular: Rate and Rhythm: Normal rate and regular rhythm. Heart sounds: No murmur heard. Pulmonary: Effort: Pulmonary effort is normal. No respiratory distress. Musculoskeletal: General: Normal range of motion. Skin: General: Skin is warm and dry. Neurological: Mental Status: She is alert and oriented to person, place, and time. Psychiatric: Mood and Affect: Mood normal. Behavior: Behavior normal. ICD-10-CM ICD-9-CM 1. Blepharitis of both upper and lower eyelid of left eye, unspecified type H01.00B 373.00 erythromycin (ILOTYCIN) 5 mg/gram (0.5 %) ointment Assessment & Plan Left eyelid inflammation: - Signs of inflammation and possible infection, particularly in the eyelid (redness worsens by evening, sensation of something in the eye). - Exam findings: Redness and slight swelling in the outer left eye, no tenderness, no fever or unusual symptoms. She has no significant vision changes. Unlikely periorbital cellulitis at this time - Prescribed erythromycin ointment every 6 hours during waking hours. - Recommended heat therapy 4-6 times daily, 15-minute intervals. - Advised to stop [id number] antibiotic cream and use prescribed erythromycin ointment. Follow-up: - Scheduled for 06/09/2025. She is due for lab work next week. RONALDO Penny The author of this note, patient (or authorized sales representative rural power), and all other persons present consent to the audio recording of this visit for charting documentation purposes. This note was automatically generated, edited by a Quality Compensation Coordinator, and finalized by JUANITO Mace. documented in this encounter Miscellaneous Notes * Patient Instructions - Kimberly King FNP - 06/02/2025 1:03 PM CDT Start using mild heat therapy on your left eye about 4-6 times per day. 15 minutes on and 15 minutes off. Starting using eye ointment as prescribed. documented in this encounter Plan of Treatment Not on file documented as of this encounter Visit Diagnoses Diagnosis Blepharitis of both upper and lower eyelid of left eye, unspecified type- Primary documented in this encounter Care Teams Real Estate Sales Supervisor Relationship Specialty Start Date End Date Tamar Gduino DO [address] [place] [address] PCP - General Family Practice 07/04/10 documented as of this encounter
[2025-06-09 11:08] VITALS: BP 163/92; PULSE 81; RESP 14; TEMP 36.6; O2SAT 96
--- NOTE | 2025-06-09 11:08 | ED_ITS ---
HPI - Abdominal Pain 2 General: Chief Complaint: Abdominal Pain Stated Complaint: LLQ Pain Time Seen by Provider: 06/09/25 11:07 History of Present Illness: 84-year-old female presents emergency ro om complaint of left lower quadrant abdominal pain initially began 1 week ago generalized lower abdominal pain and then progressively worsened she has had some loose stool denies any medic easier melena hematemesis coffee-ground emesis no dysuria urgency or frequency or hematuria. Pain radiates into her back at times. She has been nauseous and had a poor appetite. Patient has had recurrent episodes of diverticulitis in the past. Associated Symptoms: Reports nausea; Denies chills, coffee ground emesis, dysuria, fever(s), hematochezia, hematemesis, melena and vomiting Related Data Home Medications ?Medication ?Instructions ?Recorded ?Confirmed acetaminophen 500 mg tablet 500 mg PO Q4H PRN Pain 04/22/25 (Tylenol Extra Strength) cyclobenzaprine 10 mg tablet 10 mg PO TID PRN Pain 04/22/25 enalapril maleate 20 mg tablet 20 mg PO BID@10/0104/22/25 ibuprofen 200 mg tablet 200 mg PO ONCE PRN Pain 05/2104/22/25 Held on 11/10/20. Instructions: Resume on 11/12/20. multivitamin 1 tab PO DAILY@07 11/08/20 0 04/22/25 sennosides 8.6 mg tablet 8.6 mg PO DAILY 06/29/21 alprazolam 0.25 mg tablet (Xanax) 0.25 mg PO TID PRN 1 04/22/25 Vitamin D3 PO 11/27/24 04/22/25 Previous Rx's ?Medication ?Instructions ?Recorded amlodipine 10 mg tablet 10 mg PO DAILY #60 tabs 11/01 meclizine 25 mg tablet 12.5 mg (1/2 x 25 mg) PO QID PRN 01/03/25 dizziness #14 tabs apixaban 5 mg tablet (Eliquis) See Rx Instructions .Ro quileute 03/30/25 .COMPLEX #180 tabs cefdinir 300 mg capsule 300 mg PO BID #14 caps 06/09 clindamycin HCl 300 mg capsule 300 mg PO BID 7 days #1 4 caps 06/09/25 (Cleocin HCl) Allergies Allergy/AdvReac Type Severity Reaction Status Date / Time levofloxacin (From Levaquin) Allergy Severe ADR-Cramping Verified 04/22/25 09:23 of the Muscles metronidazole Allergy Intermediate Unknown Verified 04/22/25 09:23 Penicillins Allergy Intermediate Unknown Verified 04/22/25 09:23 sulfamethoxazole (From Allergy Intermediate ADR-Vomitin Verified 04/22/25 09:23 Bactrim) g trimethoprim (From Bactrim) Allergy Intermediate ADR-Vomitin Verified 04/22/25 09:23 g Review of Systems 2 Const: Denies: fever(s) or chills Card: Denies: chest pain Resp: Denies: dyspnea GI: Reports: abdominal pain and nausea; Denies: vomiting, hematemesis, coffee ground emesis, hematochezia or melena : Denies: dysuria, urinary frequency or urinary urgency Musc: Denies: neck pain or back pain Skin/Breast: Denies: rash PFSH ED 2 PFSH: Medical History Statin intolerance Dizziness and anxiety Essential hypertension ASHD (arteriosclerotic heart disease) Non-ST elevation myocardial infarction (NSTEMI) Carotid bruit Plavix resistance Surgical History S/P angioplasty with stent Family History Other CAD (coronary artery disease) Diabetes Social History Smoking and tobacco/nicotine status: former use of tobacco/nicotine (last tobacco use was in the 60's) Alcohol intake: never Substance/Drug Use: never Physical Exam 2 Const: GENERAL APPEARANCE: cooperative ORIENTATION/CONSCIOUSNESS: Yes awake HENMT: COMMON NORMALS: normocephalic, atraumatic and hearing grossly normal bilaterally HEAD & SCALP: normocephalic and atraumatic Resp: COMMON NORMALS: normal respiratory effort, No retractions, No use of accessory muscles and clear to auscultation bilaterally AUSCULTATION: clear to auscultation bilaterally Cardio: COMMON NORMALS: regular rate, regular rhythm and No murmurs present (Cardio) RATE: regular rate RHYTHM: regular rhythm GI: COMMON NORMALS: No hepatosplenomegaly present AUSCULTATION: Yes normoactive bowel sounds PALPATION: Yes Tenderness to palpation present (GI) Details: LLQ, No Guarding due to palpation present (GI) and Yes No hepatosplenomegaly present Extremity: COMMON NORMALS: normal to inspection, capillary refill normal, no clubbing, cyanosis or edema, no calf tenderness and no pedal edema Skin: COMMON NORMALS: no rashes or lesions noted GENERAL SKIN EXAM: no rashes or lesions noted Course 2 Vital Signs: Vital signs: Vital Signs Temperature 97.8 F 06/09/25 11:08 Pulse Rate 77 06/09/25 13:10 Respiratory Rate 14 06/09/25 11:08 Blood Pressure 148/76 06/09/25 13:10 Pulse Oximetry 96 06/09/25 13:10 Oxygen Delivery Me thod Room Air 06/09/25 13:10 MDM - Abdominal Pain Medical Decision Making CT did not show any radiographic signs of diverticulitis although the patient has had loose stools for a while think she may have some subclinical diverticulitis she also has a bladder infection. Antibiotic selection is difficult given her allergy list. She has taken Cipro in the past but states she cannot take Levaquin. She cannot take metronidazole which she cannot recall why. Ultimately decided to put her on cefdinir and clindamycin. Urine culture is pending. Discussed with her it may be advantageous for her to talk to her primary care doctor and get a referral to air and missile defense crewmember to review her allergies and potentially do some testing to see whether or not these are true allergies were simply side effects. If she has any worsening or change symptoms return to the emergency room. Medical Records I reviewed the patient's medical records. Lab Data I reviewed the patient's lab results. 06/09/25 11:30 06/09/25 11:30 Labs/Radiology: Radiology Impressions Abdomen/Pelvis CT 06/09/25 11:22 IMPRESSION: 1. Sigmoid diverticulosis. No evidence of acute diverticulitis. 2. Calcified uterine fibroids. 3. Urine distended bladder. 4. Prior cholecystectomy. 5. No other acute findings. Laboratory Results WBC 8.03 10^3/uL (3.29-11.43) 06/09/25 11:30 RBC 4.83 10^6/uL (3.85-5.65) 06/09/25 11:30 Hgb 14.60 g/dL (11.27-16.99) 06/09/25 11:30 Hct 45.2 % (36-47) 06/09/25 11:30 MCV 93.6 fl (85-98) 06/09/25 11:30 MCH 30.2 pg (27-33) 06/09/25 11:30 MCHC 32.3 g/dL (30-55) 06/09/25 11:30 RDW 13.2 % (12.1-15.1) 06/09/25 11:30 Plt Count 293 10^3/cmm (157-399) 06/09/25 11:30 MPV 9.4 fL (7.4-10.4) 06/09/25 11:30 Neut % (Auto) 67.3 % 06/09/25 11:30 Lymph % (Auto) 24.7 % 06/09/25 11:30 Titus % (Auto) 5.6 % 06/09/25 11:30 Eos % (Auto) 1.6 % 06/09/25 11:30 Baso % (Auto) 0.6 % 06/09/25 11:30 Neut # (Auto) 5.40 10^3/uL (1.8-7.7) 06/09/25 11:30 Lymph # (Auto) 2.0 10^3/uL (0.8-4.8) 06/09/25 11:30 Titus # (Auto) 0.5 10^3/uL (0.2-0.9) 06/09/25 11:30 Eos # (Auto) 0.1 10^3/uL (0.0-0.8) 06/09/25 11:30 Baso # (Auto) 0.1 10^3/uL (0.0-0.1) 06/09/25 11:30 Nucleated RBC % (auto) 0 % 06/09/25 11:30 Nucleated RBCs # 0.0 /100WBC 06/09/25 11:30 Sodium 141 mmol/L (136-145) 06/09/25 11:30 Potassium 3.8 mmol/L (3.5-5.1) 06/09/25 11:30 Chloride 110 mmol/L (98-107) H 06/09/25 11:30 Carbon Dioxide 22 mmol/L (22-29) 06/09/25 11:30 Anion Gap 12.8 (5-19) 06/09/25 11:30 BUN 16 mg/dL (8-23) 06/09/25 11:30 Creatinine 0.8 mg/dL (0.5-0.9) 06/09/25 11:30 GFR Calculation Not Reportable 06/09/25 11:30 Glucose 109 mg/dL (65-115) 06/09/25 11:30 Calculated Osmolality 294 mOsm/kg (285-295) 06/09/25 11:30 Calcium 9.9 mg/dL (8.5-10.5) 06/09/25 11:30 Total Bilirubin 1.0 mg/dL (0.15-1.2) 06/09/25 11:30 AST 15 U/L (0-32) 06/09/25 11:30 ALT 8 U/L (0-33) 06/09/25 11:30 Alkaline Phosphatase 99 U/L (35-105) 06/09/25 11:30 Total Protein 7.5 g/dL (6.6-8.7) 06/09/25 11:30 Albumin 4.1 g/dL (3.5-5.2) 06/09/25 11:30 Globulin 3.4 g/dL (1.3-4.6) 06/09/25 11:30 Lipase 22 U/L (13-60) 06/09/25 11:30 Urine Color Yellow (Yellow) 06/09/25 12:55 Urine Appearance Clear (CLEAR) 06/09/25 12:55 Urine pH 6.0 (5-7) 06/09/25 12:55 Ur Specific Navarro 1.007 (1.005-1.030) 06/09/25 12:55 Urine Protein Negative (Negative) 06/09/25 12:55 Urine Glucose (UA) Negative (Normal) 06/09/25 12:55 Urine Ketones Trace (Negative) 06/09/25 12:55 Urine Blood Negative (Negative) 06/09/25 12:55 Urine Nitrate Negative (Negative) 06/09/25 12:55 Urine Bilirubin Negative (Negative) 06/09/25 12:55 Urine Urobilinogen 0.2 mg/dL (Negative) 06/09/25 12:55 Ur Leukocyte Esterase 1+ (Negative) A 06/09/25 12:55 Urine RBC 0-2 /hpf (0-2) 06/09/25 12:55 Urine WBC 11-20 /hpf (0-5) H 06/09/25 12:55 Ur Squamous Epith Cells 0-5 /hpf (0-5) 06/09/25 12:55 Amorphous Sediment Not Reportable 06/09/25 12:55 Urine Bacteria 4+ /hpf (NONE) H 06/09/25 12:55 Hyaline Casts 0.40 /lpf 06/09/25 12:55 All radiology interpretation(s) finalized by discharge Discharge Plan Discharge Patient Disposition: Home Clinical Impression: Diverticulitis, Cystitis Condition: Stable Prescriptions: New cefdinir 300 mg capsule 300 mg PO BID Qty: 14 0RF clindamycin HCl [Cleocin HCl] 300 mg capsule 300 mg PO BID 7 Days Qty: 14 0RF No Action enalapril maleate 20 mg tablet 20 mg PO BID@07,19 cyclobenzaprine 10 mg tablet 10 mg PO TID PRN (Reason: Pain) acetaminophen [Tylenol Extra Strength] 500 mg tablet 500 mg PO Q4H PRN (Reason: Pain) sennosides 8.6 mg tablet 8.6 mg PO DAILY alprazolam [Xanax] 0.25 mg tablet 0.25 mg PO TID PRN Vitamin D3 PO Eliquis 5 mg tablet See Rx Instructions .ROUTE .COMPLEX Qty: 180 3RF Dose Instruction: TAKE 1 TABLET BY MOUTH TWICE DAILY Rx Instructions: TAKE 1 TABLET BY MOUTH TWICE DAILY multivitamin Tablet 1 tab PO DAILY@07 ibuprofen 200 mg Tablet 200 mg PO ONCE PRN (Reason: Pain) amlodipine 10 mg Tablet 10 mg PO DAILY Qty: 60 3RF meclizine 25 mg tablet 12.5 mg PO QID PRN (Reason: dizziness) Qty: 14 0RF Discharge Orders: Discharge ED (Routine); Ordered 06/09/25 Ordered By: Corey Hilario Referrals: Tamar Gudino DO [Primary Care Provider, Family Practice] Discharge Diet: Usual diet Discharge Activity: Resume usual activity Patient Instructions: Opioid Safety, Pain Management, Patient Portal & Jt Instructions Activity Restrictions/Additional Instructions: [facility]. It is very important that you follow up as instructed or that you return to the Emergency Department should you have concerns or if your condition changes or worsens in any way. Emergency department visits are focused on emergent conditions, in some cases you may require further evaluation on an outpatient basis. You were seen in the emergency room with complaints of abdominal pain. CT did not show radiographic evidence of diverticulitis but based on your symptoms suspect you may have a low-grade infection. You did have a mild bladder infection as well. You are given cefdinir and clindamycin that should cover for both follow-up with your primary care doctor. Antibiotic selection is very difficult because of your allergy list. Would recommend that you consult with your primary care doctor for possible evaluation with an air and missile defense crewmember to determine if these indeed are true allergies. This can be important in the future if you had a critical illness in which antibiotic selection may be difficult with your current medication list. (Please note that included in your discharge packet is information concerning opioid safety and pain management. This information is given to all patients were discharged from the ER regardless of their discharge diagnosis or the medicines they usually take or are prescribed.) Print Language: Croatian Coding Level of Care Code ED Talent Acquisition Coordinator for Garo Lyle
--- OUTSIDE RECORDS SUMMARY | 2025-06-09 11:15 | XMS_ITS | Encounter Summary ---
Author Organization [facility] Address [address] [place] [address] Care Team Providers Care Enterprise Software Engineer Name Role Phone Tamar Gudino DO Primary Care Provider Encounter Details Date Type Department Care Team (Latest Contact Info) Description 08/16/2004 Outpatient Historical [facility] Medicine- [place] [address] [place] [address] Prosper Maguire MD [address] [place] [phone] LUMBAGO (Primary Dx) Social History Tobacco Use Types Packs/Day Years Used Date Smoking Tobacco: Never Assessed Comments Unknown Sex and Gender Information Value Date Recorded Sex Assigned at Not on file Legal Sex Female 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
--- OUTSIDE RECORDS SUMMARY | 2025-06-09 11:15 | XMS_ITS | Encounter Summary ---
Author Organization [facility] Address [address] [place] [address] Care Team Providers Care Artist'S Manager Name Role Phone Tamar Gudino DO Primary Care Provider [phone] Encounter Details Date Type Department Care Team (Latest Contact Info) Description 12/26/2003 Outpatient Historical [facility] Medicine- [place] [address] [place] [address] Prosper Maguire MD [address] [place] [phone] HYPERTENSION NOS (Primary Dx); HYPERLIPIDEMIA NEC/NOS Social History Tobacco Use Types Packs/Day Years Used Date Smoking Tobacco: Never Assessed Comments Unknown Sex and Gender Information Value Date Recorded Sex Assigned at Not on file Legal Sex Female 4:11 AM TUNGSTEN TENDER Gender Identity Not on file Sexual Orientation Not on file documented as of this encounter Plan of Treatment Not on file documented as of this encounter Visit Diagnoses Diagnosis Unspecified essential hypertension- Primary Other and unspecified hyperlipidemia documented in this encounter Care Teams Artist'S Manager Relationship Specialty Start Date End Date Tamar Gudino DO [address] [place] [address] PCP - General Family Practice 07/04/10 documented as of this encounter
--- OUTSIDE RECORDS SUMMARY | 2025-06-09 11:15 | XMS_ITS | Encounter Summary ---
Author Organization [facility] Address [address] [place] [address] Care Team Providers Care Vision Rehabilitation Therapist Name Role Phone Tamar Gudino DO Primary Care Provider Encounter Details Date Type Department Care Team (Latest Contact Info) Description 01/10/2006 Outpatient Historical [facility] Medicine- [place] [address] [place] [address] Beck Rosado, GRADUATE INTERNSHIP [address] [place] [address] Lumbago (Primary Dx) Social History Tobacco Use Types Packs/Day Years Used Date Smoking Tobacco: Never Assessed Comments Unknown Sex and Gender Information Value Date Recorded Sex Assigned at Not on file Legal Sex Female 4:11 AM CERTIFIED TRAVEL COUNSELOR Gender Identity Not on file Sexual Orientation Not on file documented as of this encounter Plan of Treatment Not on file documented as of this encounter Visit Diagnoses Diagnosis Lumbago- Primary documented in this encounter Care Teams Vision Rehabilitation Therapist Relationship Specialty Start Date End Date Tamar Gudino DO [address] [place] [phone] PCP - General Family Practice 07/04/10 documented as of this encounter
--- OUTSIDE RECORDS SUMMARY | 2025-06-09 11:15 | XMS_ITS | Encounter Summary ---
Author Organization [facility] Address [address] [place] [address] Care Team Providers Care Forest Fire Equipment Operator Name Role Phone Tamar Gudino DO Primary Care Provider [phone] Encounter Details Date Type Department Care Team (Latest Contact Info) Description 07/26/[address] [facility] Medicine- [place] [address] [place] [address] Prosper Maguire MD [address] [place] [phone] ABDOMINAL PAIN UNSPEC SITE (Primary Dx) Social History Tobacco Use Types Packs/Day Years Used Date Smoking Tobacco: Never Assessed Comments Unknown Sex and Gender Information Value Date Recorded Sex Assigned at Not on file Legal Sex Female 4:11 AM CARDROOM ATTENDANT Gender Identity Not on file Sexual Orientation Not on file documented as of this encounter Plan of Treatment Not on file documented as of this encounter Visit Diagnoses Diagnosis Abdominal pain, unspecified site- Primary documented in this encounter Care Teams Forest Fire Equipment Operator Relationship Specialty Start Date End Date Tamar Gudino DO [address] [place] [address] PCP - General Family Practice 07/04/10 documented as of this encounter
--- OUTSIDE RECORDS SUMMARY | 2025-06-09 11:15 | XMS_ITS | Encounter Summary ---
Author Organization [facility] Address [address] [place] [address] Care Team Providers Care Clerk Travel Reservations Name Role Phone Tamar Gudino DO Primary Care Provider [phone]- [phone] Encounter Details Date Type Department Care Team (Latest Contact Info) Description 07/12/2004 Outpatient Historical [facility] Medicine- [place] [address] [place] [address] Prosper Maguire MD [address] [place] [phone] HYPERLIPIDEMIA NEC/NOS (Primary Dx) Social History Tobacco Use Types Packs/Day Years Used Date Smoking Tobacco: Never Assessed Comments Unknown Sex and Gender Information Value Date Recorded Sex Assigned at Not on file Legal Sex Female 4:11 AM WELL TREATMENT OFFSIDER Gender Identity Not on file Sexual Orientation Not on file documented as of this encounter Plan of Treatment Not on file documented as of this encounter Visit Diagnoses Diagnosis Other and unspecified hyperlipidemia- Primary documented in this encounter Care Teams Clerk Travel Reservations Relationship Specialty Start Date End Date Tamar Gudino DO [address] [place] [address] PCP - General Family Practice 07/04/10 documented as of this encounter
--- OUTSIDE RECORDS SUMMARY | 2025-06-09 11:15 | XMS_ITS | Encounter Summary ---
Author Organization [facility] Address [address] [place] [address] Care Team Providers Care Child And Adolescent Therapist Name Role Phone Tamar Gudino DO Primary Care Provider Encounter Details Date Type Department Care Team (Late st Contact Info) Description 07/12/2004 Outpatient Historical [facility] Medicine- [place] [address] [place] [address] Prosper Maguire MD [address] [place] [phone] Social History Tobacco Use Types Packs/Day Years Used Date Smoking Tobacco: Never Assessed Comments Unknown Sex and Gender Information Value Date Recorded Sex Assigned at Not on file Legal Sex Female 4:11 AM DRESSING ROOM PORTER Gender Identity Not on file Sexual Orientation Not on file documented as of this encounter Plan of Treatment Not on file documented as of this encounter Visit Diagnoses Not on filedocumented in this encounter Care Teams Child And Adolescent Therapist Relationship Specialty Start Date End Date Tamar Gudino DO [address] [place] [phone] PCP - General Family Practice 07/04/10 documented as of this encounter
--- OUTSIDE RECORDS SUMMARY | 2025-06-09 11:15 | XMS_ITS | Encounter Summary ---
Author Organization [facility] Address [address] [place] [address] Care Team Providers Care Glue Spreading 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 Name Role Phone Tamar Gudino DO Primary Care Provider [phone] Encounter Details Date Type Department Care Team (Latest Contact Info) Description 02/06/2002 Outpatient Historical [facility] Medicine [address] [phone] Sherry Hawkins MD NO ADDRESS ON FILE HYPERLIPIDEMIA NEC/NOS (Primary Dx); HYPERTENSION NOS Social History Tobacco Use Types Packs/Day Years Used Date Smoking Tobacco: Never Assessed Comments Unknown Sex and Gender Information Value Date Recorded Sex Assigned at Not on file Legal Sex Female 4:11 AM DRESSAGE INSTRUCTOR Gender Identity Not on file Sexual Orientation Not on file documented as of this encounter Plan of Treatment Not on file documented as of this encounter Visit Diagnoses Diagnosis Other and unspecified hyperlipidemia- Primary Unspecified essential hypertension documented in this encounter Care Teams Glue Spreading 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 Relationship Specialty Start Date End Date Tamar Gudino DO [address] [place] [address] PCP - General Family Practice 07/04/10 documented as of this encounter
--- OUTSIDE RECORDS SUMMARY | 2025-06-09 11:15 | XMS_ITS | Encounter Summary ---
Author Organization [facility] Address [address] [place] [address] Care Team Providers Care Twisting Department End Finder Name Role Phone Tamar Gudino DO Primary Care Provider [phone]- [phone] Encounter Details Date Type Department Care Team (Latest Contact Info) Description 08/26/2002 Outpatient Historical [facility] Family Medicine [address] [phone] Lucius Cote MD UNSPEC CONSTIPATION (Primary Dx) Social History Tobacco Use Types Packs/Day Years Used Date Smoking Tobacco: Never Assessed Comments Unknown Sex and Gender Information Value Date Recorded Sex Assigned at Not on file Legal Sex Female 4:11 AM COORDINATOR SKILL TRAINING PROGRAM Gender Identity Not on file Sexual Orientation Not on file documented as of this encounter Plan of Treatment Not on file documented as of this encounter Visit Diagnoses Diagnosis Unspecified constipation- Primary documented in this encounter Care Teams Twisting Department End Finder Relationship Specialty Start Date End Date Tamar Gudino DO [address] [place] [phone] PCP - General Family Practice 07/04/10 documented as of this encounter
--- OUTSIDE RECORDS SUMMARY | 2025-06-09 11:15 | XMS_ITS | Encounter Summary ---
Author Organization [facility] Address [address] [place] [address] Care Team Providers Care Soaking Tank Worker Name Role Phone Tamar Gudino DO Primary Care Provider [phone]- [phone] Encounter Details Date Type Department Care Team (Latest Contact Info) Description 11/15/2005 Outpatient Historical [facility] Imaging [facility] [address] [place] [phone] Arvin Borjas MD [address] [place] [address] [address] [place] [phone] DIVERTICULOSIS OF COLON W/O BLEED (Primary Dx) Social History Tobacco Use Types Packs/Day Years Used Date Smoking Tobacco: Never Assessed Comments Unknown Sex and Gender Information Value Date Recorded Sex Assigned at Not on file Legal Sex Female 4:11 AM VAULT INSTALLER Gender Identity Not on file Sexual Orientation Not on file documented as of this encounter Plan of Treatment Not on file documented as of this encounter Visit Diagnoses Diagnosis Diverticulosis of colon (without mention of hemorrhage)- Primary documented in this encounter Care Teams Soaking Tank Worker Relationship Specialty Start Date End Date Tamar Gudino DO [address] [place] [phone] PCP - General Family Practice 07/04/10 documented as of this encounter
--- OUTSIDE RECORDS SUMMARY | 2025-06-09 11:15 | XMS_ITS | Encounter Summary ---
Author Organization [facility] Address [address] [place] [address] Care Team Providers Care Electronics Tester Name Role Phone Tamar Gudino DO Primary Care Provider [phone] Encounter Details Date Type Department Care Team (Latest Contact Info) Description 09/29/2002 Outpatient Historical [facility] Medicine [address] [phone] Lucius Cote MD Benign yonatan lg bowel (Primary Dx) Social History Tobacco Use Types Packs/Day Years Used Date Smoking Tobacco: Never Assessed Comments Unknown Sex and Gender Information Value Date Recorded Sex Assigned at Not on file Legal Sex Female 4:11 AM POLYMER CHEMIST Gender Identity Not on file Sexual Orientation Not on file documented as of this encounter Plan of Treatment Not on file documented as of this encounter Visit Diagnoses Diagnosis 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
--- OUTSIDE RECORDS SUMMARY | 2025-06-09 11:15 | XMS_ITS | Encounter Summary ---
Author Organization [facility] Address [address] [place] [address] Care Team Providers Care Customer Support Engineer Name Role Phone Tamar Gudino DO Primary Care Provider Encounter Details Date Type Department Care Team (Latest Contact Info) Description 04/15/2004 Outpatient Historical [facility] Medicine- [place] [address] [place] [address] Prosper Maguire MD [address] [place] [phone] MED EXAM NEC-ADMIN PURP (Primary Dx) Social History Tobacco Use Types Packs/Day Years Used Date Smoking Tobacco: Never Assessed Comments Unknown Sex and Gender Information Value Date Recorded Sex Assigned at Not on file Legal Sex Female 4:11 AM 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
--- OUTSIDE RECORDS SUMMARY | 2025-06-09 11:15 | XMS_ITS | Encounter Summary ---
Author Organization [facility] Address [address] [place] [address] Care Team Providers Care Set Up Mechanic Coil Winding Machines Name Role Phone Tamar Gudino Amita LORENZ Primary Care Provider [phone] Encounter Details Date Type Department Care Team (Latest Contact Info) Description 12/28/2005 Outpatient Historical [facility] Imaging Services [address] [place] [phone] Arvin Borjas MD [address] [place] [address] Dr Cortez [address] [place] [phone] Abdominal Pain, Unspecified Site (Primary Dx) Social History Tobacco Use Types Packs/Day Years Used Date Smoking Tobacco: Never Assessed Comments Unknown Sex and Gender Information Value Date Recorded Sex Assigned at Not on file Legal Sex Female 4:11 AM TIMBER WATCHMAN Gender Identity Not on file Sexual Orientation Not on file documented as of this encounter Plan of Treatment Not on file documented as of this encounter Procedures Procedure Name Priority Date/Time Associated Diagnosis Comments XR SMALL BOWEL Routine 12/28/2005 12:01 AM TIMBER WATCHMAN documented in this encounter Results * XR SMALL BOWEL (12/28/2005 12:01 AM TIMBER WATCHMAN) Anatomical Region Laterality Modality Abdomen Other 12/28/2005 12:0 1 AM TIMBER WATCHMAN Narrative 12/28/2005 12:01 AM TIMBER WATCHMAN SMALL BOWEL FOLLOW-THROUGH DATE OF EXAMINATION: 12/28/2005. HISTORY: Abdominal pain. The kitchen cleaner view of the abdomen demonstrates nonspecific bowel gas pattern. There is a calcification superimposed upon the hepatic shadow which may represent a calcified granuloma in the posterior aspect of the right lung base or a calcified granuloma within the liver. Surgical clips are present in the right upper quadrant of the abdomen. There is dextroscoliosis of the lumbar spine along with spondylosis and evidence of degenerative disk disease. I see no evidence of organomegaly. Barium was administered orally and traversed the small bowel quite promptly, being seen at the terminal ileum 15 minutes after administration. The small bowel mucosal pattern is within normal limits. I see no intrinsic or extrinsic mass effects. Spot films in the region of the terminal ileum appear to be within normal limits. IMPRESSION: Transit time is quite prompt. Otherwise, however, I see no small bowel abnormality. [facility] Dictated By: Catie Rizvi M.D. Electronically Signed By: Catie Rizvi M.D. Date Signed: 12/28/05 [facility] Procedure Note 08/20/2009 SMALL BOWEL FOLLOW-THROUGH DATE OF EXAMINATION: 12/28/2005. HISTORY: Abdominal pain. The kitchen cleaner view of the abdomen demonstrates nonspecific bowel gas pattern.There is a calcification superimposed upon the hepatic shadow which may represent a calcifiedgranuloma in the posterior aspect of the right lung base or a calcified granuloma within the liver. Surgicalclips are present in the right upper quadrant of the abdomen. There is dextroscoliosis of the lumbarspine along with spondylosis and evidence of degenerative disk disease. I see no evidence of organomegaly. Barium was administered orally and traversed the small bowel quitepromptly, being seen at the terminal ileum 15 minutes after administration. The small bowel mucosal pattern iswithin normal limits. I see no intrinsic or extrinsic mass effects. Spot films in the region of theterminal ileum appear to be within normal limits. IMPRESSION: Transit time is quite prompt. Otherwise, however, I see no small bowelabnormality. [facility] Dictated By: Catie Rizvi M.D. Electronically Signed By: Catie Rizvi M.D. Date Signed: 12/28/05 [facility] Arvin Borjas MD DIAGNOSTIC IMAGING ORDERABL ES Final Result documented in this encounter Visit Diagnoses Diagnosis Abdominal pain, unspecified site- Primary documented in this encounter Care Teams Set Up Mechanic Coil Winding Machines Relationship Specialty Start Date End Date Tamar Gudino DO [address] [place] [address] PCP - General Family Practice 07/04/10 documented as of this encounter
--- OUTSIDE RECORDS SUMMARY | 2025-06-09 11:15 | XMS_ITS | Encounter Summary ---
Author Organization [facility] Address [address] [place] [address] Care Team Providers Care Recovery Room Rn Name Role Phone Tamar Gudino DO Primary Care Provider [phone] Encounter Details Date Type Department Care Team (Latest Contact Info) Description 04/07/[address] [facility] [address] [place] [address] Prosper Maguire MD [address] [place] [phone] HYPERLIPIDEMIA NEC/NOS (Primary Dx) Social History Tobacco Use Types Packs/Day Years Used Date Smoking Tobacco: Never Assessed Comments Unknown Sex and Gender Information Value Date Recorded Sex Assigned at Not on file Legal Sex Female 4:11 AM MEDICAL MASSAGE THERAPIST Gender Identity Not on file Sexual Orientation Not on file documented as of this encounter Plan of Treatment Not on file documented as of this encounter Visit Diagnoses Diagnosis Other and unspecified hyperlipidemia- Primary documented in this encounter Care Teams Recovery Room Rn Relationship Specialty Start Date End Date Tamar Gudino DO [address] [place] [address] PCP - General Family Practice 07/04/10 documented as of this encounter
--- OUTSIDE RECORDS SUMMARY | 2025-06-09 11:15 | XMS_ITS | Encounter Summary ---
Author Organization [facility] Address [address] [place] [address] Care Team Providers Care Powerhouse Operator Name Role Phone Tamar Gudino DO Primary Care Provider [phone] Encounter Details Date Type Department Care Team (Late st Contact Info) Description 09/11/2002 Outpatient Historical [facility] Lucius Cote MD Social History Tobacco Use Types Packs/Day Years Used Date Smoking Tobacco: Never Assessed Comments Unknown Sex and Gender Information Value Date Recorded Sex Assigned at Not on file Legal Sex Female 4:11 AM HOME HEALTH CLINICIAN Gender Identity Not on file Sexual Orientation Not on file documented as of this encounter Plan of Treatment Not on file documented as of this encounter Visit Diagnoses Not on filedocumented in this encounter Care Teams Powerhouse Operator Relationship Specialty Start Date End Date Tamar Gudino DO [address] [facility] [place] [address] PCP - General Family Practice 07/04/10 documented as of this encounter
--- OUTSIDE RECORDS SUMMARY | 2025-06-09 11:15 | XMS_ITS | Encounter Summary ---
Author Organization [facility] Address [address] [place] [address] Care Team Providers Care Book Agent Name Role Phone Tamar Gudino DO Primary Care Provider Encounter Details Date Type Department Care Team (Latest Contact Info) Description 05/22/2005 Outpatient Historical [facility] Medicine- [place] [address] [place] [address] Prosper Maguire MD [address] [place] [phone] Diverticulitis of colon (Primary Dx) Social History Tobacco Use Types Packs/Day Years Used Date Smoking Tobacco: Never Assessed Comments Unknown Sex and Gender Information Value Date Recorded Sex Assigned at Not on file Legal Sex Female 4:11 AM OIL WELL SHOOTER Gender Identity Not on file Sexual Orientation Not on file documented as of this encounter Plan of Treatment Not on file documented as of this encounter Visit Diagnoses Diagnosis Diverticulitis of colon- Primary Diverticulitis of colon (without mention of hemorrhage) documented in this encounter Care Teams Book Agent Relationship Specialty Start Date End Date Tamar Gudino DO [address] [place] [address] PCP - General Family Practice 07/04/10 documented as of this encounter
--- OUTSIDE RECORDS SUMMARY | 2025-06-09 11:15 | XMS_ITS | Encounter Summary ---
Author Organization [facility] Address [address] [place] [address] Care Team Providers Care Portable Router Operator Name Role Phone Tamar Gudino DO Primary Care Provider Encounter Details Date Type Department Care Team (Late st Contact Info) Description 09/10/2007 Outpatient Historical [facility] [address] [place] [address] Rasta Copeland MD [address] [place] [address] Social History Tobacco Use Types Packs/Day Years Used Date Smoking Tobacco: Never Assessed Comments Unknown Sex and Gender Information Value Date Recorded Sex Assigned at Not on file Legal Sex Female 4:11 AM STAIN SPRAYER Gender Identity Not on file Sexual Orientation Not on file documented as of this encounter Plan of Treatment Not on file documented as of this encounter Visit Diagnoses Not on filedocumented in this encounter Care Teams Portable Router Operator Relationship Specialty Start Date End Date Tamar Gudino DO [address] [place] [address] PCP - General Family Practice 07/04/10 documented as of this encounter
--- OUTSIDE RECORDS SUMMARY | 2025-06-09 11:15 | XMS_ITS | Encounter Summary ---
Author Organization [facility] Address [address] [place] [address] Care Team Providers Care Video Game Engineer Name Role Phone Tamar Gudino DO Primary Care Provider [phone] Encounter Details Date Type Department Care Team (Latest Contact Info) Description 02/22/2006 Outpatient Historical [facility] Gastroenterology[address] [place] [phone] Arvin Borjas MD [address] [place] [address] Dr Cortez [address] [place] [phone] Abdominal Pain, Left Upper Quadrant (Primary Dx); Diverticulosis of Colon Social History Tobacco Use Types Packs/Day Years Used Date Smoking Tobacco: Never Assessed Comments Unknown Sex and Gender Information Value Date Recorded Sex Assigned at Not on file Legal Sex Female 4:11 AM NIKE ATHLETE Gender Identity Not on file Sexual Orientation Not on file documented as of this encounter Plan of Treatment Not on file documented as of this encounter Visit Diagnoses Diagnosis Abdominal pain, left upper quadrant- Primary Diverticulosis of colon Diverticulosis of colon (without mention of hemorrhage) documented in this encounter Care Teams Video Game Engineer Relationship Specialty Start Date End Date Tamar Gudino DO [address] [place] [address] PCP - General Family Practice 07/04/10 documented as of this encounter
--- OUTSIDE RECORDS SUMMARY | 2025-06-09 11:15 | XMS_ITS | Encounter Summary ---
Author Organization [facility] Address [address] [place] [address] Care Team Providers Care Voyage Management System Operator Name Role Phone Tamar Gudino DO Primary Care Provider [phone]- [phone] Encounter Details Date Type Department Care Team (Latest Contact Info) Description 09/11/2002 Outpatient Historical [facility] Medicine [address] [phone] Lucius Cote MD Benign yonatan lg bowel (Primary Dx) Social History Tobacco Use Types Packs/Day Years Used Date Smoking Tobacco: Never Assessed Comments Unknown Sex and Gender Information Value Date Recorded Sex Assigned at Not on file Legal Sex Female 4:11 AM CERTIFIED NURSES AIDE Gender Identity Not on file Sexual Orientation Not on file documented as of this encounter Plan of Treatment Not on file documented as of this encounter Visit Diagnoses Diagnosis 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
--- OUTSIDE RECORDS SUMMARY | 2025-06-09 11:15 | XMS_ITS | Encounter Summary ---
Author Organization [facility] Address [address] [place] [address] Care Team Providers Care Finance Executive Name Role Phone Tamar Gudino DO Primary Care Provider +1- [phone] Encounter Details Date Type Department Care Team (Latest Contact Info) Description 01/15/2007 Outpatient Historical [facility] Medicine- [place] [address] [place] [address] Sudhir Arauz MD NO ADDRESS ON FILE Diverticulitis of Colon (Primary Dx); Contact Dermatitis and Other Eczema, due to Unspecified Cause Social History Tobacco Use Types Packs/Day Years Used Date Smoking Tobacco: Never Assessed Comments Unknown Sex and Gender Information Value Date Recorded Sex Assigned at Not on file Legal Sex Female 4:11 AM FRANCHISE FIELD CONSULTANT Gender Identity Not on file Sexual Orientation Not on file documented as of this encounter Plan of Treatment Not on file documented as of this encounter Visit Diagnoses Diagnosis Diverticulitis of colon- Primary Diverticulitis of colon (without mention of hemorrhage) Contact dermatitis and other eczema, due to unspecified cause documented in this encounter Care Teams Finance Executive Relationship Specialty Start Date End Date Tamar Gudino DO [address] [place] [address] PCP - General Family Practice 07/04/10 documented as of this encounter
--- OUTSIDE RECORDS SUMMARY | 2025-06-09 11:15 | XMS_ITS | Encounter Summary ---
Author Organization [facility] Address [address] [place] [address] Care Team Providers Care Public Works Manager Name Role Phone Tamar Gudino DO Primary Care Provider Encounter Details Date Type Department Care Team (Latest Contact Info) Description 11/01/2005 Outpatient Historical [facility] Gastroenterology[address] [place] [address] Arvin Borjas MD [address] [place] [address] Dr Cortez [address] [place] [phone] ABDOMINAL PAIN LUQ (Primary Dx) Social History Tobacco Use Types Packs/Day Years Used Date Smoking Tobacco: Never Assessed Comments Unknown Sex and Gender Information Value Date Recorded Sex Assigned at Not on file Legal Sex Female 4:11 AM BANDER HAND Gender Identity Not on file Sexual Orientation Not on file documented as of this encounter Plan of Treatment Not on file documented as of this encounter Visit Diagnoses Diagnosis Abdominal pain, left upper quadrant- Primary documented in this encounter Care Teams Public Works Manager Relationship Specialty Start Date End Date Tamar Gudino DO [address] [place] [phone] PCP - General Family Practice 07/04/10 documented as of this encounter
--- OUTSIDE RECORDS SUMMARY | 2025-06-09 11:15 | XMS_ITS | Encounter Summary ---
Author Organization [facility] Address [address] [place] [address] Care Team Providers Care Interpretive Naturalist Name Role Phone Tamar Gudino DO Primary Care Provider [phone]- [phone] Encounter Details Date Type Department Care Team (Latest Contact Info) Description 12/24/2003 Outpatient Historical [facility] Medicine- [place] [address] [place] [address] Prosper Maguire MD [address] [place] [phone] HYPERTENSION NOS (Primary Dx); ARTHROPATHY NOS-UNSPEC Social History Tobacco Use Types Packs/Day Years Used Date Smoking Tobacco: Never Assessed Comments Unknown Sex and Gender Information Value Date Recorded Sex Assigned at Not on file Legal Sex Female 4:11 AM WEDGER MACHINE Gender Identity Not on file Sexual Orientation Not on file documented as of this encounter Plan of Treatment Not on file documented as of this encounter Visit Diagnoses Diagnosis Unspecified essential hypertension- Primary Arthropathy, unspecified, site unspecified documented in this encounter Care Teams Interpretive Naturalist Relationship Specialty Start Date End Date Tamar Gudino DO [address] [place] [address] PCP - General Family Practice 07/04/10 documented as of this encounter
--- OUTSIDE RECORDS SUMMARY | 2025-06-09 11:15 | XMS_ITS | Encounter Summary ---
Author Organization [facility] Address [address] [place] [address] Care Team Providers Care Wire Annealer Name Role Phone Tamar Gudino DO Primary Care Provider Encounter Details Date Type Department Care Team (Late st Contact Info) Description 04/07/2004 Outpatient Historical [facility] Medicine- [place] [address] [place] [address] Prosper Maguire MD [address] [place] [phone] Social History Tobacco Use Types Packs/Day Years Used Date Smoking Tobacco: Never Assessed Comments Unknown Sex and Gender Information Value Date Recorded Sex Assigned at Not on file Legal Sex Female 4:11 AM TURNING LATHE TENDER Gender Identity Not on file Sexual Orientation Not on file documented as of this encounter Plan of Treatment Not on file documented as of this encounter Visit Diagnoses Not on filedocumented in this encounter Care Teams Wire Annealer Relationship Specialty Start Date End Date Tamar Gudino DO [address] [place] [phone] PCP - General Family Practice 07/04/10 documented as of this encounter
--- OUTSIDE RECORDS SUMMARY | 2025-06-09 11:15 | XMS_ITS | Encounter Summary ---
Author Organization [facility] Address [address] [place] [address] Care Team Providers Care Director Of Corporate Responsibility Name Role Phone Tamar Gudino DO Primary Care Provider [phone]- [phone] Encounter Details Date Type Department Care Team (Latest Contact Info) Description 07/06/2006 Outpatient Historical [facility] [address] [place] [address] Sudhir Arauz MD NO ADDRESS ON FILE Unspecified Essential Hypertension (Primary Dx); Lumbago; Pure Hypercholesterolem; Pain in Thoracic Spine Social History Tobacco Use Types Packs/Day Years Used Date Smoking Tobacco: Never Assessed Comments Unknown Sex and Gender Information Value Date Recorded Sex Assigned at Not on file Legal Sex Female 4:11 AM RADIO ANNOUNCER Gender Identity Not on file Sexual Orientation Not on file documented as of this encounter Plan of Treatment Not on file documented as of this encounter Visit Diagnoses Diagnosis Unspecified essential hypertension- Primary Lumbago Pure hypercholesterolem Pure hypercholesterolemia Pain in thoracic spine documented in this encounter Care Teams Director Of Corporate Responsibility Relationship Specialty Start Date End Date Tamar Gudino DO [address] [place] [phone] PCP - General Family Practice 07/04/10 documented as of this encounter
--- OUTSIDE RECORDS SUMMARY | 2025-06-09 11:15 | XMS_ITS | Encounter Summary ---
Author Organization [facility] Address [address] [place] [address] Care Team Providers Care Real Estate Representative Name Role Phone Tamar Gudino DO Primary Care Provider [phone] Encounter Details Date Type Department Care Team (Late st Contact Info) Description 08/08/2006 Outpatient Historical [facility] Dermatology- [address] [place] [phone] Omar Wright MD [address] [place] [phone] Circumscribe Scleroderma (Primary Dx); Unspecified Disease of Sebaceous Glands Social History Tobacco Use Types Packs/Day Years Used Date Smoking Tobacco: Never Assessed Comments Unknown Sex and Gender Information Value Date Recorded Sex Assigned at Not on file Legal Sex Female 4:11 AM COMMERCIAL INTELLIGENCE MANAGER Gender Identity Not on file Sexual Orientation Not on file documented as of this encounter Plan of Treatment Not on file documented as of this encounter Visit Diagnoses Diagnosis 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
--- OUTSIDE RECORDS SUMMARY | 2025-06-09 11:15 | XMS_ITS | Encounter Summary ---
Author Organization [facility] Address [address] [place] [address] Care Team Providers Care Janitorial Tech Name Role Phone Tamar Gudino DO Primary Care Provider [phone]- [phone] Encounter Details Date Type Department Care Team (Latest Contact Info) Description 03/07/2002 Outpatient Historical [facility] Medicine [address] [phone] Sherry Hawkins MD NO ADDRESS ON FILE HYPERLIPIDEMIA NEC/NOS (Primary Dx) Social History Tobacco Use Types Packs/Day Years Used Date Smoking Tobacco: Never Assessed Comments Unknown Sex and Gender Information Value Date Recorded Sex Assigned at Not on file Legal Sex Female 4:11 AM VALVE LINER RUBBER Gender Identity Not on file Sexual Orientation Not on file documented as of this encounter Plan of Treatment Not on file documented as of this encounter Visit Diagnoses Diagnosis Other and unspecified hyperlipidemia- Primary documented in this encounter Care Teams Janitorial Tech Relationship Specialty Start Date End Date Tamar Gudino DO [address] [place] [address] PCP - General Family Practice 07/04/10 documented as of this encounter
--- OUTSIDE RECORDS SUMMARY | 2025-06-09 11:15 | XMS_ITS | Encounter Summary ---
Author Organization [facility] Address [address] [place] [address] Care Team Providers Care Faculty Research Physician Name Role Phone Tamar Gudino DO Primary Care Provider Encounter Details Date Type Department Care Team (Late st Contact Info) Description 12/26/2003 Outpatient Historical [facility] Medicine- [place] [address] [place] [address] Prosper Maguire MD [address] [place] [phone] Social History Tobacco Use Types Packs/Day Years Used Date Smoking Tobacco: Never Assessed Comments Unknown Sex and Gender Information Value Date Recorded Sex Assigned at Not on file Legal Sex Female 4:11 AM TRIMMING DEPARTMENT BLOCKER Gender Identity Not on file Sexual Orientation Not on file documented as of this encounter Plan of Treatment Not on file documented as of this encounter Visit Diagnoses Not on filedocumented in this encounter Care Teams Faculty Research Physician Relationship Specialty Start Date End Date Tamar Gudino DO [address] [place] [phone] PCP - General Family Practice 07/04/10 documented as of this encounter
--- OUTSIDE RECORDS SUMMARY | 2025-06-09 11:15 | XMS_ITS | Encounter Summary ---
Author Organization [facility] Address [address] [place] [address] Care Team Providers Care Cork Molder Name Role Phone Tamar Gudino DO Primary Care Provider Encounter Details Date Type Department Care Team (Latest Contact Info) Description 11/23/2005 Outpatient Historical [facility] Gastroenterology[address] [place] [address] Arvin Borjas MD [address] [place] [address] Dr Cortez [address] [place] [phone] ABDOMINAL PAIN LUQ (Primary Dx) Social History Tobacco Use Types Packs/Day Years Used Date Smoking Tobacco: Never Assessed Comments Unknown Sex and Gender Information Value Date Recorded Sex Assigned at Not on file Legal Sex Female 4:11 AM RECYCLING CREW SUPERVISOR Gender Identity Not on file Sexual Orientation Not on file documented as of this encounter Plan of Treatment Not on file documented as of this encounter Visit Diagnoses Diagnosis Abdominal pain, left upper quadrant- Primary documented in this encounter Care Teams Cork Molder Relationship Specialty Start Date End Date Tamar Gudino DO [address] [place] [phone] PCP - General Family Practice 07/04/10 documented as of this encounter
--- OUTSIDE RECORDS SUMMARY | 2025-06-09 11:15 | XMS_ITS | Encounter Summary ---
Author Organization [facility] Address [address] [place] [address] Care Team Providers Care Industrial Cleaning Technician Name Role Phone Tamar Gudino DO Primary Care Provider Encounter Details Date Type Department Care Team (Latest Contact Info) Description 04/18/2005 Outpatient Historical [facility] Medicine- [place] [address] [place] [address] Prosper Maguire MD [address] [place] [phone] MED EXAM NEC-ADMIN PURP (Primary Dx) Social History Tobacco Use Types Packs/Day Years Used Date Smoking Tobacco: Never Assessed Comments Unknown Sex and Gender Information Value Date Recorded Sex Assigned at Not on file Legal Sex Female 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
--- OUTSIDE RECORDS SUMMARY | 2025-06-09 11:16 | XMS_ITS | Clinical Summary ---
Author Organization [facility] Address [address] [place] [address] Care Team Providers Care Sound Controller Name Role Phone Tamar Gudino Amita LORENZ Primary Care Provider Allergies Active Allergy Reactions Criticality Noted Date Comments Amitriptyline Palpitations High 09/18/2008 Amoxicillin-Pot Clavulanate Rash Low 02/11/20 20 Hydrocodone-Acetaminophen Nausea and Vomiting High 0 04/28/2008 Imipramine Dizziness High 09/18/2008 Levofloxacin Muscle Pain High 04/28/2008 Linaclotide Diarrhea Low 11/18/2015 Metronidazole Nausea and Vomiting Low 09/13/2023 Penicillins Rash,Itching High 04/28/2008 Lacjdyz-Jvv-Fjh Reductase Inhibitors Muscle Pain Low 09/27/2022 Sulfamethoxazole-Trimethoprim Nausea and Vomiting Low 09/21/2023 Medications MULTIVITAMIN WITH MINERALS ORAL Take by mouth. Activ e acetaminophen (TYLENOL) 500 mg tablet Take 500 mg by mouth 2 times daily. Active aspirin (ASPIR-81 ORAL) Take 1 Tablet by mouth daily. 8 Active albuterol sulfate HFA 90 mcg/actuation aerosol inhalerIndicatio ns:Acute bronchitis due to other specified organisms Take 2 Puffs by inhalation every 6 hours as needed for Shortness of Breath or Wheezing. 8.5 Gram 2 3 Active amLODIPine (NORVASC) 10 mg tablet Take 1 Tablet (10 mg) by mouth daily. 90 Tablet 4 4 Active enalapril (VASOTEC) 20 mg tablet Take 2 Tablets (40 mg) by mouth daily. 180 Tablet 4 4 Active cyclobenzaprine (FLEXERIL) 10 mg tablet take 1 tablet by mouth three times daily as needed for spasm 90 Tablet 2 4 Active Additional Information Patient not taking.Reported on 06/02/2025 ALPRAZolam (XANAX) 0.25 mg tabletIndication s:Generalized anxiety disorder TAKE ONE TABLET BY MOUTH NIGHTLY NEEDED FOR ANXIETY. 30 Tablet 1 4 Active Eliquis 5 mg tablet Take 1 Tablet by mouth 2 times daily. 5 Active meclizine HCl (MECLIZINE ORAL) Take by mouth 2 times daily. Active erythromycin (ILOTYCIN) 5 mg/gram (0.5 %) ointmentIndicati ons:Blepharitis of both upper and lower eyelid of left eye, unspecified type Administer 0.5 Inches in left eye every 6 hours. 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 Scoliosis of thoracic spine 06/29/2010 Kyphosis 06/29/2010 Type 2 diabetes mellitus wit hout complication, without long-term current use of insulin 02/06/2008 Non-seasonal allergic rhinitis due to pollen Primary osteoarthritis involving multiple joints Essential hypertension Mixed hyperlipidemia Overview (01/27/2021): Unable to take statins Diverticular disease Encounters Date Type Department Care Team Description 06/09/2025 Nurse Triage [facility] [address] [place] [address] Tamar Gudino DO 06/02/2025 1:00 PM CDT Office Visit [facility] [address] [place] [address] Kimberly King, BLASTING MINER Blepharitis of both upper and lower eyelid of left eye, unspecified type (Primary Dx) 04/15/2025 External Device Data STL ABSTRACTION Provider, Abstract 04/14/2025 External Device Data STL ABSTRACTION Provider, Abstract 03/17/2025 External Device Data STL ABSTRACTION Provider, Abstract from Last 3 Months Immunizations Immunization Administration Dates Next Due (ADACEL/BOOSTRIX)(10 YR UP) TDAP VACCINE, 0.5ML, IM 07/31/2018 (PNEUMOVAX 23)(50 YRS UP) PN EUMOCOCCAL POLYSACCHARIDE (PPV23) 0.5 ML, IM 08/23/2015,09/13/2007 Influenza Seasonal Unspecified Formulation IM Influenza Vaccine High Dose 65+ Yrs IM Influenza Vaccine Split 3+ Yrs IM 08/04/2011,06/2010 PREVNAR (PCV13) pneumococcal 13-valent conjugate Vaccine 09/28/2015 Family History Medical History Relation Name Comments Coronary Artery Disease Brother Heart Attack Father Arthritis-osteo Mother Hypertension Mother Stroke Mother Relation Name Status Comments Brother Father Mother Social History Tobacco Use Types Packs/Day Years Used Date Smoking Tobacco: Former Cigarettes Q uit: 03/01/1974 Smokeless Tobacco: Never Tobacco Cessation:Counseling Given: No Alcohol Use Standard Drinks/Week Comments No 0 [...] on file Legal Sex Female 2:27 AM PAGE TECHNICIAN Gender Identity Not on file Sexual Orientation Not on file Last Filed Vital Signs Vital Sign Reading [...] Mass Index 25.83 06/02/2025 12:45 PM CDT Plan of Treatment Health Maintenance Due Date Last Done Comments ZOSTER VACCINE (1 of 2) 1990 OSTEOPOROSIS SCREENING 2005 RSV VACCINE (60+ or ) (1 - 1-dose 75+ series) 2015 DIABETES ANNUAL FOOT EXAM 01/03/2022 01/03/2021 DIABETES HBA1C Q 6 MONTHS 03/14/20242022, 09/11/2022, 07/13/2021, Additional history exists DIABETES MICROALBUMIN ANNUAL SCREEN 09/13/2024 09/13/2023 DIABETES: A1C (Auto Order) 09/13/202409/13, 09/11/2022, 07/13/2021, Additional history exists LDL CHOLESTEROL ANNUAL 09/13/2024 3, 09/11/2022, 07/13/2021, Additional history exists Traditional Medicare (ACO) A nnual Wellness Visit 09/14/2024 09/13/2023, 09/11/2022 DIABETES ANNUAL RETINAL EXAM 04/02/202511/2023, 01/17/2021, 01/17/2021, Additional history exists INFLUENZA VACCINE (#1) 2025 5, 09/13/2023, 08/09/2023, Additional history exists COVID-19 Vaccine ( - 2024-2 6 season) 2025 09/19/2021, 03/17/2021, 02/17/2021 DTAP/TDAP/TD VACCINES (2 - T d or Tdap) 07/31/2028 07/31/2018 COLORECTAL SCREENING Discontinued 07/22/2013, 07/17/20 13 Colorectal Cancer Screening Discontinued PNEUMOCOCCAL VACCINE 50+ YEARS Completed 1 , 08/23/2015, 09/13/2007 FIT-DNA Q 3 years Discontinued FIT/FOBT Q 1 year Discontinued Flex Sig/CT Colonography Q 5 years Discontinued Procedures Procedure Name Priority Date/Time Associated Diagnosis Comments DIABETES EYE EXAM Routine 04/02/2024 9:57 AM CDT MICROALBUMIN/CREATI NINE RATIO, RANDOM UR Routine 09/13/2023 3:52 PM PAGE TECHNICIAN Type 2 diabetes mellitus without complication, without long-term current use of insulin ([facility]) LIPID PANEL Routine 09/13/2023 3:52 PM PAGE TECHNICIAN Type 2 diabetes mellitus without complication, without long-term current use of insulin ([facility]) Mixed hyperlipidemia Essential hypertension HEMOGLOBIN A1C Routine 09/13/2023 3:52 PM PAGE TECHNICIAN Type 2 diabetes mellitus without complication, without long-term current use of insulin ([facility]) from Last 3 Months or Most Recently Relevant to Health Maintenance Results * DIABETES EYE EXAM (04/02/2024 9:57 AM CDT) us Abstract Provider HEALTH MAINTENANCE Edited Resu lt - Final * (ABNORMAL) MICROALBUMIN/CREATININE RATIO, RANDOM UR (09/13/2023 3:52 PM PAGE TECHNICIAN) Creatinine, Urine 41 20 - 275 mg/dL [facility] MICROALBUMIN, URINE 1.6 See Note: mg/dL [facility] Comment: Reference Range: Reference Range Not established MICROALBUMIN/CREAT RATIO, UR 39(H) <30 mcg/mg creat [facility] Comment: The ADA defines abnormalities in albumin excretion as follows: Albuminuria Category Result (mcg/mg creatinine) Normal to Mildly increased <30 Moderately increased 30-299 Severely increased > OR = 300 The ADA recommends that at least two of three specimens collected within a 3-6 month period be abnormal before considering a patient to be within a diagnostic category. Test Performed at: [facility] [id number] [address] Zuleyma Santiago MD Urine URINE SPECIMEN OBTAINED BY CLEAN CATCH PROCEDURE / Unknown 09/13/2023 3:52 PM PAGE TECHNICIAN 09/14/2023 2:02 AM PAGE TECHNICIAN Kimberly King [facility] URINE ORDERABLES Final Res ult [facility] [phone] [facility] [address] [facility] [place] [address] * (ABNORMAL) HEMOGLOBIN A1C (09/13/2023 3:52 PM PAGE TECHNICIAN) HEMOGLOBIN A1C 5.7(H) <5.7 % of total Hgb [facility] Comment: For someone without known diabetes, a hemoglobin A1c value between 5.7% and 6.4% is consistent with prediabetes and should be confirmed with a follow-up test. For someone with known diabetes, a value <7% indicates that their diabetes is well controlled. A1c targets should be individualized based on duration of diabetes, age, comorbid conditions, and other considerations. This assay result is consistent with an increased risk of diabetes. Currently, no consensus exists regarding use of hemoglobin A1c for diagnosis of diabetes for children. ESTIMATED AVERAGE GLUCOSE (MG/DL) 117 mg/dL [facility] ESTIMATED AVERAGE GLUCOSE (MMOL/L) 6.5 mmol/L [facility] Comment: Test Performed at: [facility] [address] [facility] [place] [address] Zuleyma Santiago MD Blood 09/13/2023 3:52 PM PAGE TECHNICIAN 09/14/2023 3:05 AM PAGE TECHNICIAN Kimberly King BLASTING MINER CHEMISTRY ORDERABLES Final Result [facility] [phone] [facility] [address] [facility] [place] [address] * (ABNORMAL) LIPID PANEL (09/13/2023 3:52 PM PAGE TECHNICIAN) CHOLESTEROL 315(H) <200 mg/dL [facility] HDL 50 > OR = 50 mg/dL [facility] TRIGLYCERIDE 170(H) <150 mg/dL [facility] LDL CALCULATED 231(H) mg/dL (calc) [facility] Comment: LDL-C levels > or = 190 mg/dL may indicate familial hypercholesterolemia (FH). Clinical assessment and measurement of blood lipid levels should be considered for all first degree relatives of patients with an FH diagnosis. LDL Cholesterol (LDL-C) levels > or = 300 mg/dL may indicate homozygous familial hypercholesterolemia (HoFH). Untreated, these extremely high LDL-C levels can result in premature CV events and mortality. Patients should be identified early and provided appropriate interventions to reduce the cumulative LDL-C burden from . For questions about testing for familial hypercholesterolemia, please call [facility] at 2.655.GENE.INFO. Aleja Gutierrez, et al. J National Lipid Association Recommendations for Patient-Centered Management of Dyslipidemia: Part 1 Journal of Clinical Lipidology 2015;9(2), 129-169. Bhargav Tripp et al. (2014). Homozygous familial hypercholesterolaemia: new insights and guidance for clinicians to improve detection and clinical management. Heart Journal, 35(32), 9525-2232. Reference range: <100 Desirable range <100 mg/dL for primary prevention; <70 mg/dL for patients with CHD or diabetic patients with > or = 2 CHD risk factors. LDL-C is now calculated using the Luís-Chavez calculation, which is a validated novel method providing better accuracy than the Friedewald equation in the estimation of LDL-C. Luís MARTELL et al. GELA. 2013;310(19): 4450-3082 (http://education.[employer]faq/GFJ388) CHOL/HDL RATIO 6.3(H) <5.0 (calc) [facility] TOTAL NON-HDL CHOL(LDL+VLDL) 265(H) <130 mg/dL (calc) [facility] Comment: Non-HDL level > or = 220 is very high and may indicate genetic familial hypercholesterolemia (FH). Clinical assessment and measurement of blood lipid levels should be considered for all first-degree relatives of patients with an FH diagnosis. For patients with diabetes plus 1 major ASCVD risk factor, treating to a non-HDL-C goal of <100 mg/dL (LDL-C of <70 mg/dL) is considered a therapeutic option. Test Performed at: [facility] [id number] [address] Zuleyma Santiago MD Blood 09/13/2023 3:52 PM PAGE TECHNICIAN 09/14/2023 3:05 AM PAGE TECHNICIAN Kimberly Carson King BLASTING MINER CHEMISTRY ORDERABLES Final Result [facility] [phone] [facility] [address] [address] from Last 3 Months or Most Recently Relevant to Health Maintenance Insurance [address] [place] [address] MEDICARE PART A AND B Advance Directives For more information, please contact: [phone] Documents on File Type Date Recorded Patient Pretzel Twisting 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 Expl anation Advance Directive POA 12/04/2017 10:41 AM A dvance Directive POA Advance Directive Living Will 12/04/2017 10:41 AM Advance Directive Living Will Advance Directive POA 09/14/2015 2:44 PM Advance Directive POA Advance Directive Living Will 08/25/2015 8:25 AM Advance Directive Living Will Care Teams Sound Controller Relationship Specialty Start Date End Date Tamar Gudino DO [address] [place] [address] PCP - General Family Practice 07/04/10
--- OUTSIDE RECORDS SUMMARY | 2025-06-09 11:16 | XMS_ITS | Encounter Summary ---
Author Organization [facility] Address [address] [place] [address] Care Team Providers Care Operations Accountant Name Role Phone Tamar Gudino DO Primary Care Provider [phone] Encounter Details Date Type Department Care Team (Latest Contact Info) Description 09/18/2001 Outpatient Historical [facility] Medicine [address] [phone] Sherry Hawkins MD NO ADDRESS ON FILE HYPERTENSION NOS (Primary Dx); HYPERLIPIDEMIA NEC/NOS Social History Tobacco Use Types Packs/Day Years Used Date Smoking Tobacco: Never Assessed Comments Unknown Sex and Gender Information Value Date Recorded Sex Assigned at Not on file Legal Sex Female 4:11 AM 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
--- OUTSIDE RECORDS SUMMARY | 2025-06-09 11:16 | XMS_ITS | Encounter Summary ---
Author Organization [facility] Address [address] [place] [address] Care Team Providers Care School Teacher Name Role Phone Tamar Gudino DO Primary Care Provider [phone] Encounter Details Date Type Department Care Team (Late st Contact Info) Description 05/02/2001 Outpatient Historical [facility] [address] [place] [phone] MD [address] [place] [address] Unspecified arthropathy, pelvic region and thigh (Primary Dx) Social History Tobacco Use Types Packs/Day Years Used Date Smoking Tobacco: Never Assessed Comments Unknown Sex and Gender Information Value Date Recorded Sex Assigned at Not on file Legal Sex Female 4:11 AM CALL PERSON Gender Identity Not on file Sexual Orientation Not on file documented as of this encounter Plan of Treatment Not on file documented as of this encounter Visit Diagnoses Diagnosis Unspecified arthropathy, pelvic region and thigh- Primary documented in this encounter Care Teams School Teacher Relationship Specialty Start Date End Date Tamar Gudino DO [address] [place] [address] PCP - General Family Practice 07/04/10 documented as of this encounter
--- OUTSIDE RECORDS SUMMARY | 2025-06-09 11:16 | XMS_ITS | Encounter Summary ---
Author Organization [facility] Address [address] [place] [address] Care Team Providers Care Director Agency & Strategic Partnerships Name Role Phone Tamar Gudino DO Primary Care Provider Encounter Details Date Type Department Care Team (Late st Contact Info) Description 10/14/[address] 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
--- OUTSIDE RECORDS SUMMARY | 2025-06-09 11:16 | XMS_ITS | Encounter Summary ---
Author Organization [facility] Address [address] [place] [address] Care Team Providers Care Merchandising Representative Name Role Phone Tamar Gudino DO Primary Care Provider [phone]- [phone] Encounter Details Date Type Department Care Team (Latest Contact Info) Description 10/17/2001 Outpatient Historical [facility] Medicine [address] [phone] Sherry Hawkins MD NO ADDRESS ON FILE HYPERLIPIDEMIA NEC/NOS (Primary Dx) Social History Tobacco Use Types Packs/Day Years Used Date Smoking Tobacco: Never Assessed Comments Unknown Sex and Gender Information Value Date Recorded Sex Assigned at Not on file Legal Sex Female 4:11 AM BAKERY WORKER Gender Identity Not on file Sexual Orientation Not on file documented as of this encounter Plan of Treatment Not on file documented as of this encounter Visit Diagnoses Diagnosis Other and unspecified hyperlipidemia- Primary documented in this encounter Care Teams Merchandising Representative Relationship Specialty Start Date End Date Tamar Gudino DO [address] [place] [address] PCP - General Family Practice 07/04/10 documented as of this encounter
--- OUTSIDE RECORDS SUMMARY | 2025-06-09 11:16 | XMS_ITS | Encounter Summary ---
Author Organization [facility] Address [address] [place] [address] Care Team Providers Care Blind Teacher Name Role Phone Tamar Gudino DO Primary Care Provider Encounter Details Date Type Department Care Team (Late st Contact Info) Description 09/13/2007 Outpatient Historical [facility] Medicine- [place] [address] [place] [address] Rasta Copeland MD [address] [place] [address] Social History Tobacco Use Types Packs/Day Years Used Date Smoking Tobacco: Never Assessed Comments Unknown Sex and Gender Information Value Date Recorded Sex Assigned at Not on file Legal Sex Female 4:11 AM MAILROOM PERSONNEL Gender Identity Not on file Sexual Orientation Not on file documented as of this encounter Plan of Treatment Not on file documented as of this encounter Visit Diagnoses Not on filedocumented in this encounter Care Teams Blind Teacher Relationship Specialty Start Date End Date Tamar Gudino DO [address] [place] [address] PCP - General Family Practice 07/04/10 documented as of this encounter
--- OUTSIDE RECORDS SUMMARY | 2025-06-09 11:16 | XMS_ITS | Encounter Summary ---
Author Organization [facility] Address [address] [place] [address] Care Team Providers Care Painting Supervisor Name Role Phone Tamar Gudino DO Primary Care Provider [phone]- [phone] Reason for Visit * Reason Comments Clinical Consult Before Scheduling Encounter Details Date Type Department Care Team (Late st Contact Info) Description 06/09/2025 Nurse Triage [facility] Medicine [place] [address] [place] [address] Tamar Gudino, [address] [place] [address] Social History Tobacco Use Types Packs/Day Years [...] on file Legal Sex Female 2:27 AM PAPER GUILLOTINE OPERATOR Gender Identity Not on file Sexual Orientation Not on file documented as of this encounter Miscellaneous Notes * Telephone Encounter - Ceci Hough RN - 06/09/2025 8:21 AM CDT Patient called to say that she is have a diverticulosis flare up and that she needed to cancel her appt for this am. She said she is doing better as far as that goes. She is going to get a ride to the ER to be checked out as she was hurting in her abdominal area and couldn't hardly walk. Reason for Disposition SEVERE abdominal pain (e.g., excruciating) Protocols used: Abdominal Pain - Female-A-[place] * Telephone Encounter - Keila Blancas - 06/09/2025 8:19 AM CDT Copied from [facility] #[id number]. Topic: Symptomatic Care >> Jun 09, 2025 8:16 AM Keila Levine wrote: Has this patient seen any provider (current or former) at the requested clinic in the past? Yes, Select the appropriate age range and symptom Patient has symptoms and is seeking care. Caller Name: Glenda Josue Callback Number: [phone] (home) Call Notes: severe pain currently Age Range/Symptom: Adult 18+ - Pain, present for less than 3 days AND 8, 9 or 10 severity on a 0-10scale (10 being worst) Is there an encounter open? No Transferred to N line and jerica answered call. documented in this encounter Plan of Treatment Not on file documented as of this encounter Visit Diagnoses Not on filedocumented in this encounter Care Teams Painting Supervisor Relationship Specialty Start Date End Date Tamar Gudino DO [address] [place] [phone] PCP - General Family Practice 07/04/10 documented as of this encounter
--- OUTSIDE RECORDS SUMMARY | 2025-06-09 11:16 | XMS_ITS | Encounter Summary ---
Author Organization [facility] Address [address] [place] [address] Care Team Providers Care Private Banker Name Role Phone Tamar Gudino DO Primary Care Provider [phone]- [phone] Encounter Details Date Type Department Care Team (Late st Contact Info) Description 05/02/2001 Outpatient Historical [facility] [place] [address] [place] [address] [address] MD [address] [place] [address] Pain in joint, pelvic region and thigh (Primary Dx); Unspecified essential hypertension; Other and unspecified hyperlipidemia; Obesity, unspecified Social History Tobacco Use Types Packs/Day Years Used Date Smoking Tobacco: Never Assessed Comments Unknown Sex and Gender Information Value Date Recorded Sex Assigned at Not on file Legal Sex Female 4:11 AM EDGE BURNISHER Gender Identity Not on file Sexual Orientation Not on file documented as of this encounter Plan of Treatment Not on file documented as of this encounter Visit Diagnoses Diagnosis Pain in joint, pelvic region and thigh- Primary Unspecified essential hypertension Other and unspecified hyperlipidemia Obesity, unspecified documented in this encounter Care Teams Private Banker Relationship Specialty Start Date End Date Tamar Gudino DO [address] [place] [address] PCP - General Family Practice 07/04/10 documented as of this encounter
--- OUTSIDE RECORDS SUMMARY | 2025-06-09 11:16 | XMS_ITS | Encounter Summary ---
Author Organization [facility] Address [address] [place] [address] Care Team Providers Care Aluminum Hydroxide Process Operator Name Role Phone Tamar Gudino DO Primary Care Provider [phone]- [phone] Encounter Details Date Type Department Care Team (Latest Contact Info) Description 02/03/2002 Outpatient Historical [facility] Family Medicine [address] [facility] [address] [place] [phone] Sudhir Flores MD [address] [facility] [address] [place] [phone] HYPERLIPIDEMIA NEC/NOS (Primary Dx) Social History Tobacco Use Types Packs/Day Years Used Date Smoking Tobacco: Never Assessed Comments Unknown Sex and Gender Information Value Date Recorded Sex Assigned at Not on file Legal Sex Female 4:11 AM VALIDATION SPECIALIST Gender Identity Not on file Sexual Orientation Not on file documented as of this encounter Plan of Treatment Not on file documented as of this encounter Visit Diagnoses Diagnosis Other and unspecified hyperlipidemia- Primary documented in this encounter Care Teams Aluminum Hydroxide Process Operator Relationship Specialty Start Date End Date Tamar Gudino DO [address] [place] [phone] PCP - General Family Practice 07/04/10 documented as of this encounter
--- OUTSIDE RECORDS SUMMARY | 2025-06-09 11:16 | XMS_ITS | Encounter Summary ---
Author Organization [facility] Address [address] [place] [address] Care Team Providers Care Refractory Furnace Designer Name Role Phone Tamar Gudino DO Primary Care Provider +1- [phone] Encounter Details Date Type Department Care Team (Latest Contact Info) Description 06/06/2001 Outpatient Historical [facility] Medicine [address] [phone] Sherry Hawkins MD NO ADDRESS ON FILE Other specified arthropathy, site unspecified (Primary Dx); Unspecified essential hypertension; Allergic rhinitis due to other allergen; Obesity, unspecified Social History Tobacco Use Types Packs/Day Years Used Date Smoking Tobacco: Never Assessed Comments Unknown Sex and Gender Information Value Date Recorded Sex Assigned at Not on file Legal Sex Female 4:11 AM INSERTER PROMOTIONAL ITEM Gender Identity Not on file Sexual Orientation Not on file documented as of this encounter Plan of Treatment Not on file documented as of this encounter Visit Diagnoses Diagnosis Other specified arthropathy, site unspecified- Primary Unspecified essential hypertension Allergic rhinitis due to other allergen Obesity, unspecified documented in this encounter Care Teams Refractory Furnace Designer Relationship Specialty Start Date End Date Tamar Gudino DO [address] [place] [address] PCP - General Family Practice 07/04/10 documented as of this encounter
--- OUTSIDE RECORDS SUMMARY | 2025-06-09 11:16 | XMS_ITS | Encounter Summary ---
Author Organization [facility] Address [address] [place] [address] Care Team Providers Care Housecalls Nurse Name Role Phone Tamar Gudino DO Primary Care Provider [phone]- [phone] Encounter Details Date Type Department Care Team (Latest Contact Info) Description 11/09/2005 Outpatient Historical [facility] Endoscopy [place] [address] [place] [phone] Arvin Borjas MD [address] [place] [address] [address] [place] [phone] ABDOMINAL PAIN LUQ (Primary Dx) Social History Tobacco Use Types Packs/Day Years Used Date Smoking Tobacco: Never Assessed Comments Unknown Sex and Gender Information Value Date Recorded Sex Assigned at Not on file Legal Sex Female 4:11 AM GM/SVP GLOBAL PUBLISHER BUSINESS Gender Identity Not on file Sexual Orientation Not on file documented as of this encounter Plan of Treatment Not on file documented as of this encounter Visit Diagnoses Diagnosis Abdominal pain, left upper quadrant- Primary documented in this encounter Care Teams Housecalls Nurse Relationship Specialty Start Date End Date Tamar Gudino DO [address] [place] [phone] PCP - General Family Practice 07/04/10 documented as of this encounter
--- OUTSIDE RECORDS SUMMARY | 2025-06-09 11:16 | XMS_ITS | Encounter Summary ---
Author Organization [facility] Address [address] [place] [address] Care Team Providers Care Fur Finisher Seamstress Name Role Phone Tamar Gudino DO Primary Care Provider +1- [phone] Encounter Details Date Type Department Care Team (Latest Contact Info) Description 10/10/2001 Outpatient Historical [facility] Medicine [address] [phone] Sherry Hawkins MD NO ADDRESS ON FILE Uterine prolapse (Primary Dx); HYPERLIPIDEMIA NEC/NOS; HYPERTENSION NOS Social History Tobacco Use Types Packs/Day Years Used Date Smoking Tobacco: Never Assessed Comments Unknown Sex and Gender Information Value Date Recorded Sex Assigned at Not on file Legal Sex Female 4:11 AM CREDIT ADMINISTRATION SPECIALIST Gender Identity Not on file Sexual Orientation Not on file documented as of this encounter Plan of Treatment Not on file documented as of this encounter Visit Diagnoses Diagnosis Uterine prolapse- Primary Uterine prolapse without mention of vaginal wall prolapse Other and unspecified hyperlipidemia Unspecified essential hypertension documented in this encounter Care Teams Fur Finisher Seamstress Relationship Specialty Start Date End Date Tamar Gudino DO [address] [place] [address] PCP - General Family Practice 07/04/10 documented as of this encounter
--- OUTSIDE RECORDS SUMMARY | 2025-06-09 11:16 | XMS_ITS | Encounter Summary ---
Author Organization [facility] Address [address] [place] [address] Care Team Providers Care Freight And Passenger Agent Name Role Phone Tamar Gudino Amita LORENZ Primary Care Provider Encounter Details Date Type Department Care Team (Late st Contact Info) Description 10/29/[address] [facility] Medicine- [place] [address] [place] [address] Rasta Copeland MD [address] [place] [phone] Social History Tobacco Use Types Packs/Day Years Used Date Smoking Tobacco: Never Assessed Comments Unknown Sex and Gender Information Value Date Recorded Sex Assigned at Not on file Legal Sex Female 4:11 AM BLOCK SETTER GYPSUM Gender Identity Not on file Sexual Orientation Not on file documented as of this encounter Progress Notes * Rasta Copeland MD - 10/29/2007 12:00 AM CST [facility] [address] [place] [address] PATIENT NAME: Glenda Josue Amita CHART #: [id number] DATE OF SERVICE: 10/29/2007 DATE OF : 1940 Patient Name: Glenda Josue DOS: 10/29/2007 : 1940 Visit #: VITALS: Weight: 211.0 pounds. Pulse: . BP: 142/78. Subjective: 67 year-old female comes primarily follow-up recent D&C at [facility]. This was performed on 10/21/07. Small amount of endometrial tissue and a small polyp war recovered. All fragments were benign. Patient had some cramping and bleeding postoperatively but this is now nearly resolved. Did note that she felt she was overmedicated in postanesthesia recovery. Had morphine perhaps th ree doses. Had a lot of facial itching but also noticed some rash and felt that she had some throatswelling. The Benadryl. Symptoms resolved without further incident. No discrete hives. Has been offlovastatin. Has been dieting since our visit in August. Has lost 8 pounds. Is very pleased with this. No other specific concerns or complaints. Medication: Unchanged from previous other than lovastatin discontinued. He is taking red yeast riceand a multivitamin. Objective: No formal exam necessary today. Patient is alert, oriented and in no distress. Assessment: 1. Postmenopausal bleeding, small endometrial polyp 2. hypertension 3. hypercholesterolemia 4. DJD 5. other problems as previously noted -- stable Plan: Will make no further changes at this time. Continue diet. Recheck lab and office visit in twoto three months. Rasta Copeland M.D. [facility] Electronically Signed by Ratsa Copeland M.D. 12/17/2007 08:33 , A, Job #: Document #: [id number] cc: K SETTER GYPSUM * Rasta Copeland MD - 10/29/2007 12:00 AM CST Patient Name: Glenda Josue DOS: 10/29/2007 : 1940 Visit #: VITALS: Weight 211 pounds. Pulse: . BP:142 /78. Subjective: 67 year-old female comes primarily follow-up recent D&C at [facility]. This was performed on 10/21/07. Small amount of endometrial tissue and a small polyp war recovered. All fragments were benign. Patient had some cramping and bleeding postoperatively but this is now nearly resolved. Did note that she felt she was overmedicated in postanesthesia recovery. Had morphine perhaps th ree doses. Had a lot of facial itching but also noticed some rash and felt that she had some throatswelling. The Benadryl. Symptoms resolved without further incident. No discrete hives. Has been offlovastatin. Has been dieting since our visit in August. Has lost 8 pounds. Is very pleased with this. No other specific concerns or complaints. Medication: Unchanged from previous other than lovastatin discontinued. He is taking red yeast riceand a multivitamin. Objective: No formal exam necessary today. Patient is alert, oriented and in no distress. Assessment: 1. Postmenopausal bleeding, small endometrial polyp 2. hypertension 3. hypercholesterolemia 4. DJD 5. other problems as previously noted -- stable Plan: Will make no further changes at this time. Continue diet. Recheck lab and office visit in twoto three months. Rasta Copeland M.D. [facility] Electronically Signed by Rasta Copeland M.D. 12/20/2007 10:05 , latisha Dillon Job #: Document #: [id number] cc: documented in this encounter Plan of Treatment Not on file documented as of this encounter Visit Diagnoses Not on filedocumented in this encounter Care Teams Freight And Passenger Agent Relationship Specialty Start Date End Date Tamar Gudino DO [address] [place] [address] PCP - General Family Practice 07/04/10 documented as of this encounter
--- OUTSIDE RECORDS SUMMARY | 2025-06-09 11:16 | XMS_ITS | Encounter Summary ---
Author Organization [facility] Address [address] [place] [address] Care Team Providers Care Scientific Programmer Analyst Name Role Phone Tamar Gudino DO Primary Care Provider +1- [phone] Encounter Details Date Type Department Care Team (Late st Contact Info) Description 05/02/2001 Outpatient Historical [facility] [address] MD [address] [place], [place] [phone] Unspecified essential hypertension (Primary Dx) Social History Tobacco Use Types Packs/Day Years Used Date Smoking Tobacco: Never Assessed Comments Unknown Sex and Gender Information Value Date Recorded Sex Assigned at Not on file Legal Sex Female 4:11 AM FIBRE COMPOSITE TECHNICIAN Gender Identity Not on file Sexual Orientation Not on file documented as of this encounter Plan of Treatment Not on file documented as of this encounter Visit Diagnoses Diagnosis Unspecified essential hypertension- Primary documented in this encounter Care Teams Scientific Programmer Analyst Relationship Specialty Start Date End Date Tamar Gudino DO [address] [place] [address] PCP - General Family Practice 07/04/10 documented as of this encounter
--- OUTSIDE RECORDS SUMMARY | 2025-06-09 11:16 | XMS_ITS | Encounter Summary ---
Author Organization [facility] Address [address] [place] [address] Care Team Providers Care Auto Technician Mechanic Name Role Phone Tamar Gudino DO Primary Care Provider +1- [phone] Encounter Details Date Type Department Care Team (Latest Contact Info) Description 12/25/2001 Outpatient Historical [facility] Medicine [address] [phone] Sherry Hawkins MD NO ADDRESS ON FILE HYPERLIPIDEMIA NEC/NOS (Primary Dx); HYPERTENSION NOS Social History Tobacco Use Types Packs/Day Years Used Date Smoking Tobacco: Never Assessed Comments Unknown Sex and Gender Information Value Date Recorded Sex Assigned at Not on file Legal Sex Female 4:11 AM LICENSED ELECTRICIAN Gender Identity Not on file Sexual Orientation Not on file documented as of this encounter Plan of Treatment Not on file documented as of this encounter Visit Diagnoses Diagnosis Other and unspecified hyperlipidemia- Primary Unspecified essential hypertension documented in this encounter Care Teams Auto Technician Mechanic Relationship Specialty Start Date End Date Taamr Gudino DO [address] [place] [address] PCP - General Family Practice 07/04/10 documented as of this encounter
--- OUTSIDE RECORDS SUMMARY | 2025-06-09 11:16 | XMS_ITS | Encounter Summary ---
Author Organization [facility] Address [address] [place] [address] Care Team Providers Care Manager Dairy Name Role Phone Tamar Gudino DO Primary Care Provider Encounter Details Date Type Department Care Team (Latest Contact Info) Description 09/11/2007 Outpatient [facility] [address] [place] [address] Rasta Copeland MD [address] [place] [address] Gynecological Examination Social History Tobacco Use Types Packs/Day Years Used Date Smoking Tobacco: Never Assessed Comments Unknown Sex and Gender Information Value Date Recorded Sex Assigned at Not on file Legal Sex Female 4:11 AM FURNACE AND WASH EQUIPMENT OPERATOR Gender Identity Not on file Sexual Orientation Not on file documented as of this encounter Plan of Treatment Not on file documented as of this encounter Visit Diagnoses Diagnosis Gynecological examination documented in this encounter Care Teams Manager Dairy Relationship Specialty Start Date End Date Tamar Gudino DO [address] [place] [phone] PCP - General Family Practice 07/04/10 documented as of this encounter
--- OUTSIDE RECORDS SUMMARY | 2025-06-09 11:16 | XMS_ITS | Encounter Summary ---
Author Organization [facility] Address [address] [place] [address] Care Team Providers Care Vulcanizer Name Role Phone Tamar Gudino DO Primary Care Provider +1- [phone] Encounter Details Date Type Department Care Team (Latest Contact Info) Description 11/09/2005 Outpatient Historical [facility] [place] [address] [facility] [address] [place] [phone] Arvin Borjas MD [address] [place] [address] Dr [address] [place] [phone] Benign yonatan stomach (Primary Dx); ABDOMINAL PAIN LUQ Social History Tobacco Use Types Packs/Day Years Used Date Smoking Tobacco: Never Assessed Comments Unknown Sex and Gender Information Value Date Recorded Sex Assigned at Not on file Legal Sex Female 4:11 AM PHYSICIAN PRACTICE COORDINATOR Gender Identity Not on file Sexual Orientation Not on file documented as of this encounter Plan of Treatment Not on file documented as of this encounter Visit Diagnoses Diagnosis 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
--- OUTSIDE RECORDS SUMMARY | 2025-06-09 11:16 | XMS_ITS | Clinical Summary ---
Author Organization [facility] Address [address] [place] [address] Care Team Providers Care Head Host/Hostess Name Role Phone Shahab, Tamar Amita LORENZ Primary Care Provider Allergies Active Allergy Reactions Criticality Noted Date Comments Amitriptyline Palpitations High 09/18/2008 Amoxicillin-Pot Clavulanate Rash Low 02/11/20 20 Hydrocodone-Acetaminophen Nausea and Vomiting High 0 04/28/2008 Imipramine Dizziness High 09/18/2008 Levofloxacin Muscle Pain High 04/28/2008 Linaclotide Diarrhea Low 11/18/2015 Penicillins Rash,Itching High 04/28/2008 Medications acetaminophen (TYLENOL EXTRA STRENGTH) 500 mg Oral Tab Take 500 mg by mouth 2 times daily. Active ASPIRIN (ASPIR-81 ORAL) Take 1 Tablet by mouth daily. Active enalapril (VASOTEC) 20 mg tablet TAKE 2 TABLETS EVERY DAY 180 Tablet 4 1 Active hydroCHLOROthia zide 25 mg tablet Take 1 Tablet (25 mg) by mouth daily. Onlt prescribed for one month 90 Tablet 4 1 Active amLODIPine (NORVASC) 10 mg tablet Take 1 Tablet (10 mg) by mouth daily. 90 Tablet 4 1 Active Hospital, Clinic, or Other Facility Administered Medication Ordered Dose Route Frequency Start Date End Date Status dexamethasone (DECADRON) injection 4 mgIndications:Low back pain radiating to both legs 4 mg IM ONE TIME ONLY 10/07/2015 Active triamcinolone acetonide (KENALOG-40) injectable suspension 40 mgIndications:Low back pain radiating to both legs 40 mg IM ONE TIME ONLY 10/07/2015 Active Active Problems Problem Noted Date Diagnosed Date Atherosclerosis of [place] ronary artery of [place] heart without angina pectoris 11/26/2017 Irritable bowel syndrome with constipation 02/24 Personal history of other malignant neoplasm of skin 09/02/2010 Hallux valgus (acquired) 08/24/2010 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 Scoliosis of thoracic spine 06/29/2010 Kyphosis 06/29/2010 Type 2 diabetes mellitus wit hout complication, without long-term current use of insulin 02/06/2008 Essential hypertension Mixed hyperlipidemia Overview (09/18/2008): Unable to take statins Primary osteoarthritis involving multiple joints Non-seasonal allergic rhinitis due to pollen Diverticular disease Immunizations Immunization Administration Dates Next Due (ADACEL/BOOSTRIX)(10 YR UP) TDAP VACCINE, 0.5ML, IM 07/31/2018 (PNEUMOVAX 23)(50 YRS UP) PN EUMOCOCCAL POLYSACCHARIDE (PPV23) 0.5 ML, IM 08/23/2015,09/13/2007 Influenza Seasonal Unspecified Formulation IM Influenza Vaccine Split 3+ Yrs IM 08/04/2011,06/2010 PREVNAR (PCV13) pneumococcal 13-valent conjugate Vaccine 09/28/2015 Family History Medical History Relation Name Comments Coronary Artery Disease Brother Heart Attack Father Arthritis-osteo Mother Hypertension Mother Stroke Mother Relation Name Status Comments Brother Father Mother Social History Tobacco Use Types Packs/Day Years Used Date Smoking Tobacco: Former Cigarettes 1 15 0 03/01/1959 - 03/01/1974 Alcohol Use Standard Drinks/Week Comments No 0 (1 standard drink = 0.6 oz pur e alcohol) Comments No Sex and Gender Information Value Date Recorded Sex Assigned at Not on file Legal Sex Female 4:11 AM SHUTTLE FILLER Gender Identity Not on file Sexual Orientation Not on file Occupation Industry Job Start Date Job End Date Not on file Not on file Not on file Not on file Last Filed Vital Signs Vital Sign Reading Time Taken Comments Blood Pressure 140/80 01/03/2021 9:45 AM CDT Pulse 94 01/03/2021 9:45 AM CDT Temperature 36.8 C (98.2 F) 01/03/2021 9:45 AM CDT Respiratory Rate 18 01/03/2021 9:45 AM CDT Oxygen Saturation 96% 01/03/2021 9:45 AM CDT Inhaled Oxygen Concentration - - Weight 69.9 kg (154 lb) 01/03/2021 9:45 AM CDT Height 157.5 cm (5' 2 ) 01/03/2021 9:45 AM CDT Body Mass Index 28.17 01/03/2021 9:45 AM CDT Plan of Treatment Health Maintenance Due Date Last Done Comments ZOSTER VACCINE (1 of 2) 1990 OSTEOPOROSIS SCREENING 2005 DIABETES MICROALBUMIN ANNUAL SCREEN 08/04/2012 08/04/2011 RSV VACCINE (60+ or ) (1 - 1-dose 75+ series) 2015 DIABETES HBA1C Q 6 MONTHS 07/05/20212020, 10/03/2019, 03/06/2019, Additional history exists DIABETES ANNUAL FOOT EXAM 01/03/20222020, 11/26/2017, 05/06/2012, Additional history exists LDL CHOLESTEROL ANNUAL 01/03/2022 , 02/11/2019, 06/14/2018, Additional history exists Traditional Medicare (ACO) A nnual Wellness Visit 01/04/2022 01/03/2021, 10/03/2019, 09/02/2018, Additional history exists DIABETES ANNUAL RETINAL EXAM 04/02/202511/2023, 01/17/2021, 07/22/2020, Additional history exists INFLUENZA VACCINE (#1) 2025 , 12/05/2019, 09/04/2018, Additional history exists DTAP/TDAP/TD VACCINES (2 - T d or Tdap) 07/31/2028 07/31/2018 FIT/FOBT Q 1 year Discontinued 06/20/2011 COLORECTAL SCREENING Discontinued 07/22/2013, 07/17/2013, 07/17/2013, Additional history exists Colorectal Cancer Screening Discontinued PNEUMOCOCCAL VACCINE 50+ YEARS Completed 1 , 08/23/2015, 09/13/2007 FIT-DNA Q 3 years Discontinued Flex Sig/CT Colonography Q 5 years Discontinued Procedures Procedure Name Priority Date/Time Associated Diagnosis Comments HM DIABETES EYE EXAM Routine 01/17/2021 LIPID PANEL Routine 01/03/2021 10:26 AM CDT Type 2 diabetes mellitus without complication, without long-term current use of insulin ([facility]) HEMOGLOBIN A1C Routine 01/03/2021 10:26 AM CDT Type 2 diabetes mellitus without complication, without long-term current use of insulin ([facility]) ENDOSCOPY, COLON, SCREENING Routine 07/22/2013 Screening for colon cancer MICROALBUMIN/CREATI NINE RATIO, RANDOM UR Routine 08/04/2011 11:56 AM CDT DM w/o complication type II, uncontrolled POC OCCULT BLOOD UP TO 3 CARDS Routine 06/20/2011 3:00 PM CDT Screening for colon cancer from Last 3 Months or Most Recently Relevant to Health Maintenance Results * DIABETES EYE EXAM (01/17/2021) us Abstract Spg Provider HEALTH MAINTENANCE Final R esult * (ABNORMAL) HEMOGLOBIN A1C (01/03/2021 10:26 AM CDT) HEMOGLOBIN A1C 5.9(H) See Comment % 01/03/2021 9:15 PM CDT [facility] EST. AVG GLUCOSE, A1C 123 mg/dL 01/03/2021 9:15 PM CDT [facility] Blood Venipuncture / Unknown 01/03/2021 10:26 AM CDT 01/03/2021 8:39 PM CDT Narrative [facility] - 01/03/2021 9:15 PM CDT HGB A1C INTERPRETATION NORMAL: <5.7% PRE-DIABETES: 5.7 - 6.4% DIABETES: 6.5% OR GREATER Falsely low A1C measurements can occur when: 1. Anemia and/or hemolytic anemia is present. 2. Hemoglobin variants present. 3. Renal failure. 4. Transfusion of blood product in the last 120 days. We recommend ordering a fructosamine test([id number]) to more accurately assess glycemic status if any of the above conditions are present. Tamar Gudino DO CHEMISTRY ORDERABLES Final Result [facility] CLIA# [id number] [address] [place] [address] * (ABNORMAL) LIPID PANEL (01/03/2021 10:26 AM CDT) CHOLESTEROL 288(H) <200 mg/dL 01/03/2021 9:19 PM CDT [facility] TRIGLYCERIDE 283(H) <150 mg/dL 01/03/2021 9:19 PM CDT [facility] HDL 49 40 - 59 mg/dL 01/03/2021 9:19 PM CDT [facility] LDL CALCULATED 182(H) <100 mg/dL 01/03/2021 9:19 PM CDT [facility] NON-HDL CHOLESTEROL 239(H) <130 mg/dL 01/03/2021 9:19 PM CDT [facility] Blood Venipuncture / Unknown 01/03/2021 10:26 AM CDT 01/03/2021 8:40 PM CDT Narrative [facility] - 01/03/2021 9:19 PM CDT TOTAL CHOLESTEROL mg/dL Desirable <200 Borderline high 200-239 High >=240 TRIGLYCERIDES mg/dL Normal <150 Borderline high 150-199 High 200-499 Very high >=500 HDL CHOLESTEROL mg/dL Low <40 Normal 40-59 Desirable >=60 NON HDL CHOLESTEROL mg/dL Optimal <130 Near Optimal 130-159 Borderline High 160-189 Very High >=190 CALCULATED LDL mg/dL LDL <70, OPTIMAL if have Atherosclerotic cardiovascular disease (ASCVD) or intermediate or higher (>7.5%) 10 year risk of ASCVD including most adults with diabetes. LDL <100, Optimal in adult patients with low (<7.5%) 10 year ASCVD risk LDL 100-160, Suboptimal LDL >160, High LDL >190, Very high ATPIII Guidelines Reference Ranges for Lipid Panels (NCEP/AMA) . Tamar L Shahab DO CHEMISTRY ORDERABLES Final Result [facility] CLIA# [id number] [address] [place] [address] * ENDOSCOPY, COLON, SCREENING (07/22/2013) Heavenly Lucia MANAGER TELEMARKETING GI PROCEDURE ORDERABLES Final Result * MICROALBUMIN/CREATININE RATIO, RANDOM UR (08/04/2011 11:56 AM CDT) MICROALBUMIN URINE 0.6 MG/DL [facility] Creatinine, Urine 69 MG/DL [facility] MICROALBUMIN/CREA T RATIO, UR 8.7 MCG/MG CREAT. [facility] Comment: NORMAL: <30 MCG/MG CREAT MICROALBUMINURIA: 30-300 MCG/MG CREAT CLINICAL ALBUMINURIA: >300 MCG/MG CREAT Urine specimen (specimen) 08/04/2011 11:56 AM CDT 08/04/2011 11:57 AM CDT Tamar Gudino DO URINE ORDERABLES Final [facility] lt [facility] CLIA# [id number] [address] [place] [address] * POC OCCULT BLOOD UP TO 3 CARDS (06/20/2011 3:00 PM CDT) OCCULT BLOOD #1 Negative Negative OCCULT BLOOD #2 Negative Negative OCCULT BLOOD #3 Negative Negative Stool specimen (specimen) 06/20/2011 3:00 PM CDT Tamar Gudino DO POINT OF CARE TESTING Final Result from Last 3 Months or Most Recently Relevant to Health Maintenance Insurance [address] [place] [address] MEDICARE PART A AND B [employer] [facility] Advance Directives For more information, please contact: [phone] Documents on File Type Date Recorded Patient Twisting Operator Expl anation Advance Directive POA 09/14/2015 2:44 PM Advance Directive POA Advance Directive POA 12/04/2017 Advanc e Directive POA Advance Directive Living Will 12/04/2017 Advance Directive Living Will Advance Directive Living Will 08/25/2015 8:24 AM Advance Directive Living Will * Full Code (Latest Code Status on File) Date Activated Date Inactivated Comments 08/09/2009 6:24 AM 08/10/2009 2:01 AM * Full Code Date Activated Date Inactivated Comments 07/05/2009 6:39 AM 07/06/2009 2:01 AM Care Teams Head Host/Hostess Relationship Specialty Start Date End Date Tamar Gudino DO [address] [place] [address] PCP - General Family Practice 07/04/10
--- OUTSIDE RECORDS SUMMARY | 2025-06-09 11:16 | XMS_ITS | Encounter Summary ---
Author Organization [facility] Address [address] [place] [address] Care Team Providers Care Autopsy Pathologist Name Role Phone Tamar Gudino DO Primary Care Provider [phone] Encounter Details Date Type Department Care Team (Latest Contact Info) Description 07/10/2001 Outpatient Historical [facility] Family Medicine [address] [phone] Sherry Hawkins MD NO ADDRESS ON FILE Other and unspecified hyperlipidemia (Primary Dx); Obesity, unspecified Social History Tobacco Use Types Packs/Day Years Used Date Smoking Tobacco: Never Assessed Comments Unknown Sex and Gender Information Value Date Recorded Sex Assigned at Not on file 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
--- NOTE | 2025-06-09 11:22 | CT_ITS ---
WS: [id number] CT ABDOMEN PELVIS TECHNIQUE: Noncontrast CT of the abdomen and pelvis with coronal and sagittal reformatted images. CLINICAL INFORMATION: Abdominal pain left lower quadrant COMPARISON: 2019 DLP: 525.[address] scans at [facility] use at least one of these dose optimization techniques: automated exposure control; mA and/or kV adjustment per patient size (includes targeted exams where dose is matched to clinical indication); or iterative reconstruction. FINDINGS: Adrenal glands are normal. Mild LEFT pelvicaliectasis. This appears similar to previous. No obstructing renal or ureteral calculi. Sigmoid diverticulosis. No evidence of acute diverticulitis. Diverticuli throughout the colon. Urine distended bladder. Uterine fibroids. Normal noncontrast liver. Prior cholecystectomy. Lung bases are well aerated. Fatty atrophy of the pancreas. Aortic calcification. Normal caliber abdominal aorta. Tiny fat-containing umbilical hernia. Advanced spondylitic changes lumbar spine. Grade 1 anterolisthesis L5 on S1. RIGHT unilateral pars defect L5-S1. Osteopenia. Tiny fat-containing umbili evette hernia. CT/CT abdomen pelvis wo con [id number] IMPRESSION: 1. Sigmoid diverticulosis. No evidence of acute diverticulitis. 2. Calcified uterine fibroids. 3. Urine distended bladder. 4. Prior cholecystectomy. 5. No other acute findings.
[2025-06-09 11:41] LABS: Hematocrit 45.2 % (36-47); Hemoglobin 14.60 g/dL (11.27-16.99); Mean Corpuscular HGB Conc 32.3 g/dL (30-55); Mean Corpuscular Hemoglobin 30.2 pg (27-33); Mean Corpuscular Volume 93.6 fl (85-98); Nucleated Red Blood Cells % 0 %; Platelet Count 293 10^3/cmm (157-399); Red Blood Count 4.83 10^6/uL (3.85-5.65); White Blood Count 8.03 10^3/uL (3.29-11.43)
[2025-06-09] MEDS: morphine 4 mg/mL SDV 1 mL 2 MG IVP (11:53)
[2025-06-09 12:04] LABS: Alanine Aminotransferase 8 U/L (0-33); Albumin Level 4.1 g/dL (3.5-5.2); Alkaline Phosphatase 99 U/L (35-105); Anion Gap 12.8 (5-19); Aspartate Amino Transferase 15 U/L (0-32); Blood Urea Nitrogen 16 mg/dL (8-23); Calcium 9.9 mg/dL (8.5-10.5); Carbon Dioxide 22 mmol/L (22-29); Chloride 110 mmol/L (98-107); Creatinine Clr Calc Pharmacy 45.9826; Globulin 3.4 g/dL (1.3-4.6); Glucose 109 mg/dL (65-115); Lipase 22 U/L (13-60); Osmolality Calculated 294 mOsm/kg (285-295); Potassium 3.8 mmol/L (3.5-5.1); Sodium 141 mmol/L (136-145); Total Protein 7.5 g/dL (6.6-8.7)
[2025-06-09 13:03] LABS: Glucose Urine UA Negative (Normal); Nitrate Urine Negative (Negative); Specific Gravity, Urine 1.007 (1.005-1.030)
[2025-06-09 13:05] LABS: Add Urine Microscopic? YES
[2025-06-09 13:10] VITALS: BP 148/76; PULSE 77; O2SAT 96
== END 2025-06-09 14:14 | disposition home or self-care (01) ==
PROVIDERS: Emergency Provider Family Medicine; PCP Family Medicine
DX: K57.92 Diverticulitis of intestine, part unspecified, without perforation or abscess without bleeding (principal); N30.90 Cystitis, unspecified without hematuria; Z79.01 Long term (current) use of anticoagulants; Z87.891 Personal history of nicotine dependence; I10 Essential (primary) hypertension
CPT/HCPCS: 36415; 74176; 80053; 81001; 83690; 85025; 87077; 87086; 87186; 96374; 96375; 99285; J1885; J2270; J7030